=== PATIENT | female | born 1945 | race Caucasian/White ===

== ENCOUNTER 2019-10-10 10:31 | Observation (INO) ==
[2019-10-10] MEDS ORDERED: fentaNYL citrate 100 MCG/2 ML VIAL IV STA (10:57)
[2019-10-10] MEDS ORDERED: SODIUM CHLORIDE 0.9% 500 ML IV ONE (11:00)
--- NOTE | 2019-10-10 11:07 | Emergency Department Note ---
Impression & Plan Chest pain, Neck pain on left side, Headache ED Provider Note Provider: Juan Holt MD DATE OF SERVICE: 10/10/2019 CHIEF COMPLAINT: Chest pain HISTORY OF PRESENT ILLNESS: Patient is a 73-year-old female presenting via ambulance today reporting left-sided chest pain rating to left shoulder starting this morning. Also states he feels somewhat short of breath and does have a history of underlying COPD. Denies any cardiac history states he has a slight nonproductive cough that is been constant. Patient also states that she feels like she might have a lump on the left side of her neck. Patient has a history of brain aneurysm and is thus not allowed to have blood thinners or an MRI. Did review recent encounter here 2 days ago for lower back pain Toradol at that time. Patient states that she was okay overnight until she was awakened by a sharp pain in the left posterior aspect of her shoulder around 6 AM. This pain then moved over to her left lower neck and left anterior chest. Not pleuritic. States she has her chronic COPD cough but feels maybe a little bit more short of breath. Denies any leg swelling or tenderness. Took a full dose aspirin prior to arrival. Reports a cardiac history with myocardial infarction in [place] last year (Daughter later via phone stated this was Takotsubo cardiomyopathy). Patient states she is not quite had pain like this before. No sick contacts. No other trauma. Patient does report a little bit of pain with movement of the shoulder. Patient also states again that she feels that there is maybe a little lower left bump she just noted this morning of her neck. During our discussion she also began to relay some slight headache. Patient states her chest discomfort around a 3 out of 10 is requesting pain medication. Did receive 3 dose of nitroglycerin prior to arrival with minimal improvement. REVIEW OF SYSTEMS: A total of 10 review of systems was obtained and negative except as stated above in the HPI. PAST MEDICAL HISTORY: As noted above MEDICATIONS: Reviewed nursing notes and includes Synthroid, aspirin SOCIAL HISTORY: Patient is a smoker, lives at home PHYSICAL EXAM: GENERAL: alert and oriented in no acute distress on stretcher Head: normocephalic and atraumatic EYES: No injection, discharge or icterus. PERRLA. NECK: Trachea midline. Supple although she does note some slight tenderness at the base of the left lower neck but I do not feel any significant fluctuance there is no erythema in this area. No crepitus. ENT: Mucous membranes pink and moist. LUNGS: Airway patent. No retractions. Breath sounds clear with good air entry bilaterally. HEART: Regular rate and rhythm. No chest wall tenderness ABDOMEN: Soft and non-tender, without guarding or rebound SKIN: Acyanotic, warm, dry, without rashes EXTREMITIES: Without swelling, tenderness or deformity except for some slight pain with ROM of the left shoulder. NEUROLOGICAL: No focal deficits. No aphasia. No facial droop or slurred speech. Normal strength and tone in the extremities. Sensation to gross touch normal. Ambulatory. EKG: Patient appears to be in a sinus rhythm with intermittent PACs. No acute ST segment elevation is notable. There is some baseline artifact. QTc within normal limits. Compared to June 14, 2019 EKG does show some new lateral T wave inversions. CONTINUOUS CARDIAC MONITORING: was ordered and showed a heart rate of 95 bpm in NSR Patient's hypertension was referred to the [facility] COURSE: 1050 Patient was first seen and H&P performed. 1240 Patient reassessed and updated. Patient was having some improvement of her symptoms but they still persist Patient's laboratory studies and imaging reviewed. Differential includes Cardiac ischemia, aortic dissection, pulmonary embolism, pneumothorax, pneumonia, pericarditis, myocarditis, esophageal rupture, GERD, cholecystitis, pancreatitis, musculoskeletal, neurological as well as other pathologies. IMPRESSION/MEDICAL DECISION MAKING: Patient does report a history of cardiac disease. Question some new T wave inversions laterally on the EKG. Pain is somewhat sharp and slightly reproducible on exam. Does have a history of AVM as well and does start to complain of a headache. Given this I did complete a CT of the chest neck and head. Less likely to be aortic dissection. Troponin was sent. Basic labs were obtained. Less likely to be intra-abdominal. No evidence of significant heart failure. No travel risk factors or fever and I doubt this represents acute coronavirus. Patient initially treated with some fentanyl. I doubt this is acutely infectious. There is no evidence of CHEESEMAKING LABORER or meningitis. Laboratory studies show borderline leukocytosis. No acute anemia. Patient has normal renal function. Patient is detectable but not abnormal troponin as well as moderately elevated lipase of 897. Unsure if this could possibly represent the etiology of patient's discomfort. Patient states she is having some lower neck pain and was given an additional oxycodone to help with this pain. CT without signs of PE with a question of left upper lobe muscous plugs. CT the head and neck completed without no findings of significant acute pathology. 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 These do NOT explain the discomfort that she is having. Not having significantly new neurological symptoms and again believe these are more chronic. Patient is already on an antiplatelet agent - ASA. Given that she still having chest and neck discomfort and with her cardiac risk factors believe further observation here in the hospital was warranted and have hospitalist evaluate. DIAGNOSIS: Chest pain, left lower neck pain, headache DISPOSITION: Hospitalist will evaluate Patient was agreeable with this plan. Past Med/Surg History Social History Preferred Language: Moldovan Communication Ability: Effective Visual Impairment: Diminished 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: Hard of Hearing Fixed Capital Clerk Required: No Beliefs That Will Affect Care: None marital status: singled Current Living Situation: Family Current Living Situation Comment: with son and daughter in law current occupational status: disabled Feels Safe at Home: Yes Safety Concerns: Feels Safe At This Time Smoking Status: Current every day smoker Tobacco Type: cigarettes ; Cigarettes Per Day: 2-3 ; Second Hand Exposure: Yes (parents smoked/ smoked) ; Hx Alcohol Use: No Hx Substance Use: No Allergies Allergies Allergy/AdvReac Type Severity Reaction Status Date / Time enoxaparin [From Lovenox] Allergy Severe can not Verified 10/10/19 11:16 take d/t bleeding AVMs heparin Allergy Severe can not Verified 10/10/19 11:16 take d/t bleeding AVMs warfarin [From Coumadin] Allergy Severe can not Verified 10/10/19 11:16 take d/t bleeding AVMs levofloxacin [From Levaquin] Allergy Intermediate "tendons Verified 10/10/19 11:16 in back of leg/foot get hard" Home Meds Home Medications Medication Instructions Recorded Confirmed aspirin 325 mg tablet 325 mg PO QAM 03/22/19 10/10/19 multivitamin 1 tab PO QAM 03/22/19 10/10/19 pilocarpine HCl 2 % eye drops 1 drops OP BID 03/22/19 10/10/19 sertraline 100 mg tablet 100 mg PO QAM 03/22/19 10/10/19 levothyroxine 150 mcg PO QAM 06/14/19 10/10/19 magnesium oxide 400 mg PO QAM 07/30/19 10/10/19 fluticasone furoate 200 1 puffs INH Q24H 09/21/19 10/10/19 mcg-vilanterol 25 mcg/dose inhalation powder tramadol 25 mg PO Q12H PRN 10/10/19 10/10/19 Previous Rx's Medication Instructions Recorded albuterol sulfate 90 mcg/actuation 1 puffs INH QID PRN #18 gm 09/10/19 aerosol inhaler famotidine 20 mg tablet 20 mg PO DAILY #30 tab 09/22/19 etodolac 200 mg PO Q12H PRN #14 cap 10/08/19 Results & Data (ED) Vital Signs Vital Signs - 24 hr 10/10/19 10:36 10/10/19 10:40 10/10/19 10:41 Temperature 36.8 C Temperature Source Oral Pulse Rate 95 H 99 H 103 H Pulse Rate [Left Finger] Pulse Rate from SpO2 Sensor 112 H 94 H Respiratory Rate 18 22 24 Blood Pressure 113/71 113/71 Blood Pressure [Right Arm] Blood Pressure Mean 76 85 Blood Pressure Mean [Right Arm] Pulse Oximetry 90 97 99 Oxygen Delivery Method Room Air Room Air Room Air Sepsis Recent Fever Within 48 Hours No Sepsis New/Unexplained Change in Mental Status No Sepsis Action Taken by Nursing No Action Required 10/10/19 10:44 10/10/19 11:00 10/10/19 11:13 Temperature Temperature Source Pulse Rate 89 84 Pulse Rate [Left Finger] Pulse Rate from SpO2 Sensor 86 Respiratory Rate 21 21 Blood Pressure 147/64 H Blood Pressure [Right Arm] Blood Pressure Mean 93 Blood Pressure Mean [Right Arm] Pulse Oximetry 99 98 Oxygen Delivery Method Room Air Room Air Sepsis Recent Fever Within 48 Hours Sepsis New/Unexplained Change in Mental Status Sepsis Action Taken by Nursing 10/10/19 12:01 10/10/19 12:32 10/10/19 13:46 Temperature Temperature Source Pulse Rate Pulse Rate [Left Finger] 90 95 H 101 H Pulse Rate from SpO2 Sensor Respiratory Rate 22 22 18 Blood Pressure Blood Pressure [Right Arm] 159/90 H 180/52 H 134/64 Blood Pressure Mean Blood Pressure Mean [Right Arm] 113 94 87 Pulse Oximetry 99 98 94 Oxygen Delivery Method Room Air Room Air Room Air Sepsis Recent Fever Within 48 Hours Sepsis New/Unexplained Change in Mental Status Sepsis Action Taken by Nursing Laboratory Data Result diagrams: 10/10/19 Unknown 10/10/19 Unknown Lab Results 10/10/19 10/10/19 10/10/19 Range/Units Unknown Unknown Unknown WBC 11.05 H (4.8-10.8) K/uL RBC 3.96 L (4.2-5.4) M/uL Hgb 12.0 (12.0-16.0) g/dL Hct 34.1 L (37-47) % MCV 86.1 (80-100) fL MCH 30.3 (25-34) pg MCHC 35.2 (32-36) g/dL RDW Std Deviation 46.1 (36.4-46.3) fL RDW Coeff of Kilo 14.6 H (11.5-14.5) % Plt Count 201 (130-400) K/uL MPV 9.2 (7.4-10.4) fL Immature Gran % (Auto) 0.5 % Neut % (Auto) 77.3 % Lymph % (Auto) 9.9 % [place] % (Auto) 9.6 % Eos % (Auto) 2.2 % Baso % (Auto) 0.5 % Immature Gran # (Auto) 0.06 H (0.00-0.02) K/uL Neut # (Auto) 8.54 H (1.4-6.5) K/uL Lymph # (Auto) 1.09 L (1.2-3.4) K/uL [place] # (Auto) 1.06 H (0.11-0.59) K/uL Eos # (Auto) 0.24 (0-0.5) K/uL Baso # (Auto) 0.06 (0-0.2) K/uL PT 11.6 (9.0-12.0) Seconds INR 1.1 (0.9-1.1) APTT 27.8 (21.0-31.0) Seconds PTT Ratio 1.0 Sodium 133 L (136-145) mmol/L Potassium 4.1 (3.5-5.1) mmol/L Chloride 102 (98-107) mmol/L Carbon Dioxide 24 (21-32) mmol/L Anion Gap 7.0 (3-11) BUN 9 (7-18) mg/dl Creatinine 0.55 L (0.6-1.2) mg/dl Est Cr Clr Drug Dosing 70.7 ml/min Est GFR ( Amer) 106.3 Est GFR (Non-Af Amer) 91.8 BUN/Creatinine Ratio 16.5 (10-20) Glucose 113 H (70-99) mg/dl Calcium 9.4 (8.5-10.1) mg/dl Total Bilirubin 0.5 (0.2-1) mg/dl AST 34 (15-37) U/L ALT 29 (12-78) U/L Alkaline Phosphatase 123 H (45-117) U/L Troponin I 0.015 (0-0.045) ng/ml Total Protein 7.2 (6.4-8.2) gm/dl Albumin 3.7 (3.4-5.0) gm/dl Globulin 3.5 (2.5-4.0) gm/dl Albumin/Globulin Ratio 1.1 (0.9-2) Lipase 897 H (73-393) U/L Administered Medications Fluticasone/Vilanterol (Breo Ellipta 200/25 Mcg Inh) 1 puffs INH DAILY SACHIN Stop: 11/09/19 15:08 Last Admin: 10/10/19 16:04 Dose: 1 puffs Documented by: [id number] Ioversol (Optiray 320 125ml) 118 ml IV ONCE PRN PRN Reason: Interaction Checking Stop: 10/14/19 11:40 Last Admin: 10/10/19 11:42 Dose: 118 ml Documented by: [id number] Tramadol HCl (Ultram) 25 mg PO Q12H PRN PRN Reason: Pain Stop: 11/09/19 15:08 Last Admin: 10/10/19 15:35 Dose: 25 mg Documented by: [id number] Discontinued Medications Fentanyl Citrate (Fentanyl Citrate) 25 mcg IV NOW STA Stop: 10/10/19 10:58 Last Admin: 10/10/19 11:15 Dose: 25 mcg Documented by: [id number] Sodium Chloride (Nss) 500 mls @ 999 mls/hr IV .Q31M ONE Stop: 10/10/19 11:30 Last Infusion: 10/10/19 12:06 Dose: 0 mls/hr Documented by: [id number] Admin: 10/10/19 11:15 Dose: 999 mls/hr Documented by: [id number] Oxycodone HCl (Roxicodone Immediate Rel) 5 mg PO NOW STA Stop: 10/10/19 12:05 Last Admin: 10/10/19 12:08 Dose: 5 mg Documented by: [id number] Discharge Plan Visit Data *Final* Discharge Date/Time: 10/10/19 14:48 Chief Complaint: Chest Pain Stated Complaint: chest pain ED Provider: Juan Holt Discharge Problem: Chest pain, Neck pain on left side, Headache Patient Disposition: Admitted As Inpatient Discharge Instructions Interventions: ED Discharge Assessment Last Done: 10/10/19 14:48 Discharge Problem: Chest pain Qualifiers: Chest pain type: unspecified Qualified Code(s): R07.9 - Chest pain, unspecified Headache Qualifiers: Headache type: unspecified Headache chronicity pattern: acute headache Intractability: not intractable Qualified Code(s): R51 - Headache
[2019-10-10 11:15] LABS: Basophils # (auto) 0.06 K/uL (0-0.2); Basophils % (auto) 0.5 %; Eosinophils # (auto) 0.24 K/uL (0-0.5); Eosinophils % (auto) 2.2 %; Hematocrit (blood only) 34.1 % (37-47); Immature Granulocytes # (auto) 0.06 K/uL (0.00-0.02); Immature Granulocytes % (auto) 0.5 %; Lymphocytes # (auto) 1.09 K/uL (1.2-3.4); Lymphocytes % (auto) 9.9 %; Mean Corpuscular Hemoglobin 30.3 pg (25-34); Mean Corpuscular Hgb Conc 35.2 g/dL (32-36); Mean Corpuscular Volume 86.1 fL (80-100); Mean Platelet Volume 9.2 fL (7.4-10.4); Monocytes # (auto) 1.06 K/uL (0.11-0.59); Monocytes % (auto) 9.6 %; Neutrophils # (auto) 8.54 K/uL (1.4-6.5); Neutrophils % (auto) 77.3 %; Platelet Count 201 K/uL (130-400); RDW Coefficient of Variation 14.6 % (11.5-14.5); RDW Standard Deviation 46.1 fL (36.4-46.3); Red Blood Count 3.96 M/uL (4.2-5.4); White Blood Count 11.05 K/uL (4.8-10.8)
--- NOTE | 2019-10-10 11:25 | XRay Report ---
XR chest 1V portable CLINICAL HISTORY: Atypical chest pain COMPARISON STUDY: 03/22/2019 FINDINGS: The heart is the upper limits of normal in size. There are calcified mediastinal and hilar lymph nodes. The patient is hyperinflated. There is no acute parenchymal consolidation. There is michelle r left basilar atelectasis/scarring. There is no lobar consolidation. There is no failure. There are no pleural effusions.[ IMPRESSION: No active disease in the chest. ACT 112: Negative or not required by law. Electronically signed by: Alexey Florentino M.D. 10/10/2019 11:24 AM
[2019-10-10 11:28] LABS: INR 1.1 (0.9-1.1); Partial Thromboplastin Time 27.8 Seconds (21.0-31.0); Prothrombin Time 11.6 Seconds (9.0-12.0)
[2019-10-10 11:31] LABS: Albumin Level 3.7 gm/dl (3.4-5.0); BUN Creatinine Ratio 16.5 (10-20); Calcium 9.4 mg/dl (8.5-10.1); Creatinine Clr Calc Pharmacy 70.7 ml/min; Est GFR (African American) 106.3; Est GFR (Non-African American) 91.8; Potassium 4.1 mmol/L (3.5-5.1)
[2019-10-10 11:36] LABS: Albumin Globulin Ratio 1.1 (0.9-2); Bilirubin,Total 0.5 mg/dl (0.2-1); Globulin 3.5 gm/dl (2.5-4.0); Total Protein 7.2 gm/dl (6.4-8.2); Troponin I 0.015 ng/ml (0-0.045)
[2019-10-10] MEDS ORDERED: OPTIRAY 320 125ml IV PRN (11:41)
[2019-10-10] MEDS ORDERED: OXYCODONE HCL IR 5 MG TAB (IMMEDIATE RELEASE) PO STA (12:04)
--- NOTE | 2019-10-10 12:12 | CT Scan Report ---
CT ANGIOGRAM OF THE CHEST CLINICAL HISTORY: Atypical chest pain, shortness of breath. Suspected pulmonary embolism. COMPARISON STUDY: Chest x-ray dated 10/10/2019 TECHNIQUE: Following the IV administration of 118 mL of Optiray-320, CT angiogram of the thorax was p erformed from the thoracic inlet to the lung bases utilizing the pulmonary embolus protocol. Images a re reviewed in the axial, sagittal, and coronal planes. IV contrast was administered without complica tion. MIP imaging was performed. A dose lowering technique was utilized adhering to the principles o f ALARA. CT DOSE: 1017.77 mGy.cm FINDINGS: There are mildly enlarged mediastinal and hilar lymph nodes. There is no evidence of pathologic axill cheryl lymphadenopathy. There is no evidence of thoracic aortic aneurysm or dissection. There are mild to moderate atheromato us changes within the descending thoracic aorta, and advanced atheromatous changes within the abdomin al aorta. There were no pulmonary artery filling defects to indicate acute pulmonary embolism. There is suspect ed pulmonary arterial hypertension. No pleural effusions are visualized. Patient is hyperinflated. There is mild emphysema. There is apical scarring. There is a left upper lo be bronchial filling defect, likely representing a mucous plug. There is a 4 mm left upper lobe pulmo nary nodule. There are lower thoracic vertebral body inferior endplate compression deformities. IMPRESSION: 1. No evidence of acute pulmonary embolism 2. Mild emphysema 3. Mild mediastinal and hilar lymphadenopathy 4. Left upper lobe bronchial filling defect, statistically representing a mucous plug ACT 112: Negative or not required by law. Electronically signed by: Alexey Florentino M.D. 10/10/2019 12:11 PM
--- NOTE | 2019-10-10 12:26 | CT Scan Report ---
CT angio neck with con CLINICAL HISTORY: Neck, left neck pain. Possible dissection. COMPARISON STUDY: No previous studies for comparison. TECHNIQUE: CT angiography was performed from the aortic arch to the skull base. MIP imaging was perfo rmed. The patient was scanned in a dynamic helical fashion during intravenous administration of 118 c c of Optiray 320. A dose lowering technique was utilized adhering to the principles of ALARA. CT DOSE: Technique: CT angiogram of the carotid and vertebral arteries was obtained using intravenous contrast and 3-D reconstruction. NASCET criteria was utilized. Findings: There is upper lobe pulmonary emphysema with apical scarring. There are atheromatous changes present within the common carotid artery without evidence for hemodyna mically significant stenosis. There is apparent occlusion of the right external carotid artery. There are postsurgical changes present within the right neck. There is enlargement and heterogeneity of th e right masseter muscle with multiple small serpiginous vessels possibly representing a vascular malf ormation. There is no evidence of hemodynamically significant right internal carotid artery stenosis. Atheromatous changes are present within the left common carotid without evidence of hemodynamically s ignificant stenosis. There is extensive atheromatous plaquing at the level the left carotid bulb. The re is a high-grade stenosis of the left external artery origin. There is a less than 50% stenosis the left internal carotid artery origin. The left vertebral artery is dominant. There is no evidence of left vertebral artery stenosis. There is an occlusion of the proximal right vertebral artery. There is occlusion of the distal right verteb ral artery. IMPRESSION: 1. No evidence of hemodynamically significant right internal carotid artery stenosis. 2. 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 High-grade stenosis of the left external carotid artery 4. Extensive atheromatous plaque at the level left carotid bulb with a less than 60% stenosis of the left internal carotid artery origin 5. Occlusion of the proximal right vertebral artery distal reconstitution. Occlusion of distal right vertebral artery. 6. No evidence of left vertebral artery stenosis 7. Postsurgical changes present within the right neck. 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 ACT 112: Negative or not required by law. Electronically signed by: Alexey Florentino M.D. 10/10/2019 12:25 PM
--- NOTE | 2019-10-10 12:32 | CT Scan Report ---
CT angio head wo/w CT DOSE: CLINICAL HISTORY: Headache. History of vascular malformation. TECHNIQUE: Unenhanced images were obtained of the brain. CT angiography was then performed a dynamic helical fashion during intravenous administration of 118 cc Optiray 320. MIP imaging was acquired. A dose lowering technique was utilized adhering to the principles of ALARA. COMPARISON STUDY: None. FINDINGS: Noncontrast images reveal no intra or extra-axial mass lesions. There is no CT evidence of acute cortical infarction. There are moderate hypodensities within the white matter, likely on a smal l vessel basis. There are old basal ganglia lacunar infarcts. There is no evidence of acute hemorrhag e. There is no evidence of midline shift. There are postsurgical changes of a right frontotemporal cr aniotomy. There is an aneurysm clip in the region of the right ramona of Gloria. Postcontrast images reveal no pathologically enhancing intracranial masses. The dural venous sinuses appear patent. There is enlargement of the right masseter muscle with serpiginous vessels suggesting a vascular malf ormation. There is a distal right vertebral artery occlusion. There are no lesion suspicious for aneurysm. There are mild to moderate atheromatous changes within t he cavernous carotids. IMPRESSION: 1. No evidence of acute hemorrhage. No evidence CT evidence of acute or subacute infarction 2. Postsurgical changes of a right frontotemporal craniotomy with aneurysm clipping 3. No aneurysm is identified 4. 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 Distal right vertebral artery occlusion ACT 112: Negative or not required by law. Electronically signed by: Alexey Florentino M.D. 10/10/2019 12:30 PM
--- NOTE | 2019-10-10 13:51 | History & Physical Report ---
Date of Service October 10, 2019 Assessment & Plan (1) Atypical chest pain: Pain is very atypical, consider superior trapezius spasm rather than a cardiac issue at this time. Patient does have risk factors. Will place in observation, follow cardiac enzymes along with symptomatology. Can use K pad along with ibuprofen as needed for pain. Repeat EKG in the morning. If negative, can plan on discharge with close outpatient follow-up. (2) COPD (chronic obstructive pulmonary disease): Stable at this time and patient is breathing well on room air. Continue albuterol and chronic inhalers at this time. (3) Body aches: Per history, patient has had issues with myalgias in the past. NSAIDs as noted above. History of Present Illness Primary Care Provider: Niyah Landaverde MD This is a 73-year-old female with past medical history of cerebral AVMs, previous possible [place], COPD that presents today complaining of back and shoulder pain. Patient is a decent historian but somewhat limited with details. Patient tells me she woke up around 6:00 this morning with pain in her left neck. This started in the mid cervical region but seemed to spread down into her shoulder and upper back. It then came around to the left side of her chest parallel to the sternum. She described it being very sharp and worse with movement. It is not pleuritic. There was no diaphoresis or palpitations with this. It did hurt worse when she moves her neck. The pain lasted for approximately an hour and was relieved after she was given nitro. At time of evaluation, the pain is almost resolved but still present. She denies any other symptoms such as nausea or vomiting. She did endorse some shortness of breath but this is mild and chronic in nature and no worse today. She has been afebrile. Of note, she tells me she had a myocardial infarction in [place] last year. The pain she experiences not similar to what she is experiencing now. I did review the ER physician's documentation, he had communicate with the daughter and found that she had Takotsubo cardiomyopathy. Allergies Allergy/AdvReac Type Severity Reaction Status Date / Time enoxaparin [From Lovenox] Allergy Severe can not Verified 10/10/19 11:16 take d/t bleeding AVMs heparin Allergy Severe can not Verified 10/10/19 11:16 take d/t bleeding AVMs warfarin [From Coumadin] Allergy Severe can not Verified 10/10/19 11:16 take d/t bleeding AVMs levofloxacin [From Levaquin] Allergy Intermediate "tendons Verified 10/10/19 11:16 in back of leg/foot get hard" Home Medications Home Medications Medication Instructions Recorded Confirmed Type aspirin 325 mg tablet 325 mg PO QAM 03/22/19 10/10/19 History multivitamin 1 tab PO QAM 03/22/19 10/10/19 History pilocarpine HCl 2 % eye drops 1 drops OP BID 03/22/19 10/10/19 History sertraline 100 mg tablet 100 mg PO QAM 03/22/19 10/10/19 History levothyroxine 150 mcg PO QAM 06/14/19 10/10/19 History magnesium oxide 400 mg PO QAM 07/30/19 10/10/19 History albuterol sulfate 90 mcg/actuation 1 puffs INH QID PRN #18 gm 09/10/19 10/10/19 Rx aerosol inhaler fluticasone furoate 200 1 puffs INH Q24H 09/21/19 10/10/19 History mcg-vilanterol 25 mcg/dose inhalation powder famotidine 20 mg tablet 20 mg PO DAILY #30 tab 09/22/19 10/10/19 Rx etodolac 200 mg PO Q12H PRN #14 cap 10/08/19 10/10/19 Rx tramadol 25 mg PO Q12H PRN 10/10/19 10/10/19 History Past Med/Surg History Social History Preferred Language: [place] Citizen Communication Ability: Effective Visual Impairment: Diminished 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: Hard of Hearing 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 Professional Required: No Beliefs That Will Affect Care: None marital status: singled Current Living Situation: Family Current Living Situation Comment: Lives with son and daughter in law current occupational status: disabled Feels Safe at Home: Yes Smoking Status: Current every day smoker Tobacco Type: cigarettes ; Cigarettes Per Day: 4-5 a day ; Second Hand Exposure: Yes (parents smoked/ smoked) ; Hx Alcohol Use: No Hx Substance Use: No Review of Systems Constitutional: no fever, no chills, no weakness, no weight loss and no weight gain Eyes: as per Subjective / HPI Respiratory: no cough, no chest congestion, no dyspnea and no dyspnea on exertion Cardiovascular: + chest pain; no radiating jaw, neck or arm pain, no dyspnea, no dyspnea on exertion, no orthopnea, no palpitations, no lightheadedness and no edema Gastrointestinal: no abdominal pain, no nausea, no vomiting, no constipation and no diarrhea/loose stools Genitourinary: no dysuria, no difficulty urinating, no urinary frequency, no urinary hesitancy, no urinary urgency and no flank pain Musculoskeletal: + joint pain; no back pain, no neck pain, no deformity, no swelling, no stiffness, no myalgia and no muscle weakness Integumentary: no rash Neurologic: no gait abnormality, no unsteadiness, no falls and no generalized weakness Physical Exam Constitutional: cooperative; no acute distress Neck: trachea midline, no thyromegaly Respiratory: normal respiratory effort Auscultation: lungs clear to auscultation bilaterally; no crackles, no rales, no rhonchi and no wheezes Cardiovascular: Rate/Rhythm: regular rate and regular rhythm Heart Sounds: normal S1 and normal S2 Gastrointestinal (Abdomen): Inspection/Auscultation: abdomen normal to inspection Percussion/Palpation: abdomen soft; abdomen nontender, no guarding, abdomen not rigid and no hepatosplenomegaly Musculoskeletal: Point tenderness mid cervical region on the left, some pain with mild palpation of left superior trap. No point tenderness of chest wall Skin: no rashes, warm and dry Results & Data Results & Data ([facility]) Vital Signs (Past 12 Hours) Vital Signs Temp Pulse Pulse Resp BP BP Pulse Ox 10/10/19 12:32 95 H 22 180/52 H 98 10/10/19 12:01 90 22 159/90 H 99 10/10/19 11:13 84 21 147/64 H 98 10/10/19 11:00 89 21 10/10/19 10:44 99 10/10/19 10:41 36.8 C 103 H 24 113/71 99 10/10/19 10:40 99 H 22 97 10/10/19 10:36 95 H 18 113/71 90 Laboratory Results WBC 11.05, hemoglobin of 12, hematocrit 34.1, platelets of 201. INR is 1.1. Sodium 133, potassium 4.1, chloride 12 2, current dioxide of 24, BUN of 9 creatinine of 0.55. Alk phos 123, troponin is 0.015. Lipase is 897. Diagnostic Findings CT angio head wo/w CT DOSE: CLINICAL HISTORY: Headache. History of vascular malformation. TECHNIQUE: Unenhanced images were obtained of the brain. CT angiography was then performed a dynamic helical fashion during intravenous administration of 118 cc Optiray 320. MIP imaging was acquired. A dose lowering technique was utilized adhering to the principles of ALARA. COMPARISON STUDY: None. FINDINGS: Noncontrast images reveal no intra or extra-axial mass lesions. There is no CT evidence of acute cortical infarction. There are moderate hypodensities within the white matter, likely on a small vessel basis. There are old basal ganglia lacunar infarcts. There is no evidence of acute hemorrhage. There is no evidence of midline shift. There are postsurgical changes of a right frontotemporal craniotomy. There is an aneurysm clip in the region of the right [place] of [place]. Postcontrast images reveal no pathologically enhancing intracranial masses. The dural venous sinuses appear patent. There is enlargement of the right masseter muscle with serpiginous vessels suggesting a vascular malformation. There is a distal right vertebral artery occlusion. There are no lesion suspicious for aneurysm. There are mild to moderate atheromatous changes within the cavernous carotids. IMPRESSION: 1. No evidence of acute hemorrhage. No evidence CT evidence of acute or subacute infarction 2. Postsurgical changes of a right frontotemporal craniotomy with aneurysm clipping 3. No aneurysm is identified 4. 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 Distal right vertebral artery occlusion --- CT angio neck with con CLINICAL HISTORY: Neck, left neck pain. Possible dissection. COMPARISON STUDY: No previous studies for comparison. TECHNIQUE: CT angiography was performed from the aortic arch to the skull base. MIP imaging was performed. The patient was scanned in a dynamic helical fashion during intravenous administration of 118 cc of Optiray 320. A dose lowering technique was utilized adhering to the principles of ALARA. CT DOSE: Technique: CT angiogram of the carotid and vertebral arteries was obtained using intravenous contrast and 3-D reconstruction. NASCET criteria was utilized. Findings: There is upper lobe pulmonary emphysema with apical scarring. There are atheromatous changes present within the common carotid artery without evidence for hemodynamically significant stenosis. There is apparent occlusion of the right external carotid artery. There are postsurgical changes present within the right neck. There is enlargement and heterogeneity of the right masseter muscle with multiple small serpiginous vessels possibly representing a vascular malformation. There is no evidence of hemodynamically significant right internal carotid artery stenosis. Atheromatous changes are present within the left common carotid without evidence of hemodynamically significant stenosis. There is extensive atheromatous plaquing at the level the left carotid bulb. There is a high-grade stenosis of the left external artery origin. There is a less than 50% stenosis the left internal carotid artery origin. The left vertebral artery is dominant. There is no evidence of left vertebral artery stenosis. There is an occlusion of the proximal right vertebral artery. There is occlusion of the distal right vertebral artery. IMPRESSION: 1. No evidence of hemodynamically significant right internal carotid artery stenosis. 2. 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 High-grade stenosis of the left external carotid artery 4. Extensive atheromatous plaque at the level left carotid bulb with a less than 60% stenosis of the left internal carotid artery origin 5. Occlusion of the proximal right vertebral artery distal reconstitution. Occlusion of distal right vertebral artery. 6. No evidence of left vertebral artery stenosis 7. Postsurgical changes present within the right neck. 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 --- CT ANGIOGRAM OF THE CHEST CLINICAL HISTORY: Atypical chest pain, shortness of breath. Suspected pulmonary embolism. COMPARISON STUDY: Chest x-ray dated 10/10/2019 TECHNIQUE: Following the IV administration of 118 mL of Optiray-320, CT angiogram of the thorax was performed from the thoracic inlet to the lung bases utilizing the pulmonary embolus protocol. Images are reviewed in the axial, sagittal, and coronal planes. IV contrast was administered without complication. MIP imaging was performed. A dose lowering technique was utilized adhering to the principles of ALARA. CT DOSE: 1017.77 mGy.cm FINDINGS: There are mildly enlarged mediastinal and hilar lymph nodes. There is no e vidence of pathologic axillary lymphadenopathy. There is no evidence of thoracic aortic aneurysm or dissection. There are mild to moderate atheromatous changes within the descending thoracic aorta, and advanced atheromatous changes within the abdominal aorta. There were no pulmonary artery filling defects to indicate acute pulmonary embolism. There is suspected pulmonary arterial hypertension. No pleural effusions are visualized. Patient is hyperinflated. There is mild emphysema. There is apical scarring. There is a left upper lobe bronchial filling defect, likely representing a mucous plug. There is a 4 mm left upper lobe pulmonary nodule. There are lower thoracic vertebral body inferior endplate compression deformities. IMPRESSION: 1. No evidence of acute pulmonary embolism 2. Mild emphysema 3. Mild mediastinal and hilar lymphadenopathy 4. Left upper lobe bronchial filling defect, statistically representing a mucous plug PG Care Time/CCT Total # of Minutes Spent Total Time Spent with Patient: Total time spent is greater than 50% in coordination of care (as documented) at patient's floor/unit and/or counseling patient: Coding Level of Care Code 42459 OBS Care - Level 3 Diagnoses Atypical chest pain R07.89 COPD (chronic obstructive pulmonary disease) J44.9 Body aches R52
[2019-10-10] MEDS ORDERED: IBUPROFEN 600 MG TAB PO PRN (15:09)
[2019-10-10] MEDS ORDERED: ETODOLAC 200 MG PO PRN (15:09)
[2019-10-10] MEDS ORDERED: ALUMINUM/MAGNESIUM SUSP 30 ML UDC PO PRN (15:09)
[2019-10-10] MEDS ORDERED: TRAMADOL HCL 50 MG TABLET PO PRN (15:09)
[2019-10-10] MEDS ORDERED: ALBUTEROL HFA 8 GM INHALER INH PRN (15:09)
[2019-10-10] MEDS: FLUTICASONE/VILANTEROL 200/25MCG 14 PUFFS/INHALER INH SCH (16:04)
[2019-10-10] MEDS: PILOCARPINE HCL 2% OP SOLN 15 ML BTL OP SCH (20:31)
[2019-10-10] MEDS: ACETAMINOPHEN 325 MG TAB PO PRN (22:01)
[2019-10-11 06:20] LABS: BUN Creatinine Ratio 13.7 (10-20); Calcium 9.6 mg/dl (8.5-10.1); Creatinine Clr Calc Pharmacy 60.2 ml/min; Est GFR (African American) 100.7; Est GFR (Non-African American) 86.8; Potassium 3.8 mmol/L (3.5-5.1)
[2019-10-11 06:30] LABS: Hematocrit (blood only) 34.7 % (37-47); Hemoglobin 12.1 g/dL (12.0-16.0); Mean Corpuscular Hemoglobin 29.9 pg (25-34); Mean Corpuscular Hgb Conc 34.9 g/dL (32-36); Mean Corpuscular Volume 85.7 fL (80-100); Mean Platelet Volume 9.3 fL (7.4-10.4); Platelet Count 198 K/uL (130-400); RDW Coefficient of Variation 14.8 % (11.5-14.5); Red Blood Count 4.05 M/uL (4.2-5.4)
[2019-10-11] MEDS ORDERED: LEVOTHYROXINE SODIUM 150 MCG TABLET PO SCH (06:30)
[2019-10-11] MEDS: FLUTICASONE/VILANTEROL 200/25MCG 14 PUFFS/INHALER INH SCH (08:24)
[2019-10-11] MEDS: PILOCARPINE HCL 2% OP SOLN 15 ML BTL OP SCH (08:24)
[2019-10-11] MEDS ORDERED: SERTRALINE HCL 100 MG TABLET PO SCH (09:00)
[2019-10-11] MEDS ORDERED: MULTIVITAMIN TAB PO SCH (09:00)
[2019-10-11] MEDS ORDERED: ASPIRIN 325 MG ECTAB PO SCH (09:00)
[2019-10-11] MEDS ORDERED: FAMOTIDINE 20 MG TAB PO SCH (09:00)
[2019-10-11] MEDS ORDERED: MAGNESIUM OXIDE 400 MG TAB PO SCH (09:00)
[2019-10-11] MEDS: ACETAMINOPHEN 325 MG TAB PO PRN (10:36)
--- NOTE | 2019-10-11 11:22 | Discharge Summary ---
Date of Service October 11, 2019 Admission HPI Per Admitting Provider This is a 73-year-old female with past medical history of cerebral AVMs, previous possible [place], COPD that presents today complaining of back and shoulder pain. Patient is a decent historian but somewhat limited with details. Patient tells me she woke up around 6:00 this morning with pain in her left neck. This started in the mid cervical region but seemed to spread down into her shoulder and upper back. It then came around to the left side of her chest parallel to the sternum. She described it being very sharp and worse with movement. It is not pleuritic. There was no diaphoresis or palpitations with this. It did hurt worse when she moves her neck. The pain lasted for approximately an hour and was relieved after she was given nitro. At time of evaluation, the pain is almost resolved but still present. She denies any other symptoms such as nausea or vomiting. She did endorse some shortness of breath but this is mild and chronic in nature and no worse today. She has been afebrile. Of note, she tells me she had a myocardial infarction in [place] last year. The pain she experiences not similar to what she is experiencing now. I did review the ER physician's documentation, he had communicate with the daughter and found that she had Takotsubo cardiomyopathy. Admission Exam Per Admitting Provider Constitutional: cooperative; no acute distress Neck: trachea midline, no thyromegaly Respiratory: normal respiratory effort Auscultation: lungs clear to auscultation bilaterally; no crackles, no rales, no rhonchi and no wheezes Cardiovascular: Rate/Rhythm: regular rate and regular rhythm Heart Sounds: normal S1 and normal S2 Gastrointestinal (Abdomen): Inspection/Auscultation: abdomen normal to inspection Percussion/Palpation: abdomen soft; abdomen nontender, no guarding, abdomen not rigid and no hepatosplenomegaly Musculoskeletal: Point tenderness mid cervical region on the left, some pain with mild palpation of left superior trap. No point tenderness of chest wall Skin: no rashes, warm and dry Principal Diagnosis 1. Atypical chest pain, suspect musculoskeletal back and shoulder pain 2. History of coronary artery disease with previous [place] will approximate 1 year ago 3. History of Takotsubo cardiomyopathy 4. COPD by history Discharge Exam Constitutional cooperative; no acute distress Neck trachea midline, no thyromegaly Respiratory normal respiratory effort Auscultation: lungs clear to auscultation bilaterally; no crackles, no rales, no rhonchi and no wheezes Cardiovascular Rate/Rhythm: regular rate and regular rhythm Heart Sounds: normal S1 and normal S2 Gastrointestinal (Abdomen) Inspection/Auscultation: abdomen normal to inspection Percussion/Palpation: abdomen soft; abdomen nontender, no guarding, abdomen not rigid and no hepatosplenomegaly Skin no rashes, warm and dry Discharge Data Allergies Allergy/AdvReac Type Severity Reaction Status Date / Time enoxaparin [From Lovenox] Allergy Severe can not Verified 10/10/19 11:16 take d/t bleeding AVMs heparin Allergy Severe can not Verified 10/10/19 11:16 take d/t bleeding AVMs warfarin [From Coumadin] Allergy Severe can not Verified 10/10/19 11:16 take d/t bleeding AVMs levofloxacin [From Levaquin] Allergy Intermediate "tendons Verified 10/10/19 11:16 in back of leg/foot get hard" Consultations 10/10/19 13:18 ED Decision to Admit Stat Ordered Studies 10/10/19 10:57 CT angio head wo/w Stat CT angio neck with con Stat 10/10/19 11:35 CT angio chest PE protocol Stat Hospital Course (1) Atypical chest pain: Pain is very atypical, will consider shoulder and trapezius muscle spasm. Patient was placed in monitored observation overnight, had no abnormalities. Patient had 3 sets of troponins, the first was undetectable, the second was 0.026 and that there was 0.015, all which are normal values. She had no EKG changes overnight. The time my evaluation the morning, the patient tells me that her pain mostly resolved. She had no new complaints. She denied any overt chest pain, shortness of breath, palpitations, diaphoresis, fever or chills. Therefore the patient will be discharged home in stable condition. She should follow-up with her primary care physician as previously instructed. The patient does have recurrent chest or back pain that is concerning she should present to get to the emergency room for further evaluation. (2) COPD (chronic obstructive pulmonary disease): Stable at this time and patient is breathing well on room air. Continue albuterol and chronic inhalers at this time. (3) Body aches: Per history, patient has had issues with myalgias in the past. NSAIDs as noted above. Total Time Total Time Spent Total Time Spent (In Minutes): Excess of 30 minutes was taken in preparation of discharge Discharge Plan Discharge Items Patient Disposition: Home - Self-Care Reason For Visit: CHEST/BACK PAIN Discharge Diagnosis: 1. Back and shoulder pain, likely noncardiac 2. Possible history of CAD and Takotsubo cardiomyopathy 3. COPD by history Activity: Resume your previous activity Lifting: Gradually increase as tolerated Non-emergency contact: Primary Care Provider Call non-emergency contact if: your symptoms worsen Follow-up/Referrals: Niyah Landaverde MD [Primary Care Provider] - Diet: Heart Healthy Addtl Attending Provider Instructions: Can use heat as needed for shoulder pain Stand-Alone Forms: [employer], Smoking Cessation Medications and DC Order Prescriptions: Continued albuterol sulfate 90 mcg/actuation HFA aerosol inhaler 1 puffs INH QID PRN (Reason: shortness of breath or wheezing) Qty: 18 RF: 3 aspirin 325 mg tablet 325 mg PO QAM RF: 0 multivitamin tablet 1 tab PO QAM RF: 0 pilocarpine HCl 2 % drops 1 drops OP BID RF: 0 sertraline 100 mg tablet 100 mg PO QAM RF: 0 Breo Ellipta 200-25 mcg/dose blister with device 1 puffs INH Q24H RF: 0 famotidine 20 mg tablet 20 mg PO DAILY Qty: 30 RF: 2 levothyroxine 150 mcg tablet 150 mcg PO QAM RF: 0 magnesium oxide 400 mg magnesium Tablet 400 mg PO QAM RF: 0 etodolac 200 mg capsule 200 mg PO Q12H PRN (Reason: pain) Qty: 14 RF: 0 tramadol 50 mg tablet 25 mg PO Q12H PRN (Reason: Pain) RF: 0 Discharge Orders: Discharge Order (Routine); Ordered 10/11/19 Ordered By: Sanjeev George Admission Data Admit Date/Time: 10/10/19 14:10 Attending Provider: Sanjeev George Admit Provider: Sanjeev George Primary Care Provider: Niyah Landaverde Other Providers: Sanjeev George Coding Level of Care Code 95576 OBS Care - Discharge Diagnoses Atypical chest pain R07.89 COPD (chronic obstructive pulmonary disease) J44.9 Body aches R52
--- NOTE | 2019-10-11 13:13 | Electrocardiogram Report ---
Test Reason : Blood Pressure : / mmHG Vent. Rate : 098 BPM Atrial Rate : 098 BPM P-R Int : 112 ms QRS Dur : 062 ms QT Int : 324 ms P-R-T Axes : 070 -14 085 degrees QTc Int : 413 ms Poor data quality, interpretation may be adversely affected Sinus rhythm with Premature atrial complexes with Aberrant conduction Abnormal ECG When compared with ECG of 14-JUN-2019 13:29, ST now depressed in Anterior leads T wave inversion now evident in Anterior leads Confirmed by Chucky Solares ([id number]) on 10/11/2019 1:13:04 PM Referred By: REFERRED SELF Confirmed By:Chucky Solares
--- NOTE | 2019-10-11 13:35 | Electrocardiogram Report ---
Test Reason : Blood Pressure : / mmHG Vent. Rate : 087 BPM Atrial Rate : 087 BPM P-R Int : 124 ms QRS Dur : 068 ms QT Int : 346 ms P-R-T Axes : 075 -11 044 degrees QTc Int : 416 ms Sinus rhythm with occasional Premature ventricular complexes and Premature atrial complexes Possible Anterior infarct T wave abnormality, consider anterior ischemia Abnormal ECG When compared with ECG of 10-OCT-2019 10:35, Premature ventricular complexes are now Present Confirmed by Chucky Solares ([id number]) on 10/11/2019 1:34:51 PM Referred By: REFERRED SELF Confirmed By:Chucky Solares
== END 2019-10-11 12:17 | disposition home or self-care (01) ==
LOC: ED 10:31 → 2N 10:31

== ENCOUNTER 2019-10-20 18:23 | Inpatient (IN) ==
[2019-10-20] MEDS ORDERED: MoRPHine SULFATE 4 MG/ML 1 ML CARP\\VIAL IV STA ×2 (18:43→21:00)
[2019-10-20] MEDS ORDERED: SODIUM CHLORIDE 0.9% 500 ML IV SCH (18:45)
--- NOTE | 2019-10-20 18:51 | Emergency Department Note ---
History of Present Illness General Chief Complaint: Chest Pain Stated Complaint: CHEST PAIN Time Seen by Provider: 10/20/19 18:33 Source: patient Mode of arrival: wheelchair Limitations: no limitations History of Present Illness Provider Complaint: chest pain Onset (ago): day(s) 4 Duration: constant Onset: during rest Pain Location: substernal Pain Radiation: none Severity: moderate Maximum Pain Intensity: 8 Current Pain Intensity: 5 Quality: + other (Like being punched in the chest) Relieved By: + nothing Exacerbated By: + movement Context: no recent illness, no recent surgery, no recent immobilization, no recent travel and no trauma/injury Associated symptoms: no nausea, no diaphoresis, no sense of impending doom, no syncope, no palpitations, no fever, no cough and no leg swelling Treatments prior to arrival: none This is a 73-year-old female who presents to the ED with a chief complaint of chest pain for the past 4 days. She states that she awoke with the pain. She states that it feels like someone punching her in the chest. The patient states that she has increased pain with movement. She states that breathing increases the pain. It is in the retrosternal area. She does have a history of DVT and COPD. She denies any recent illness or fevers. No trauma. Related Data On Oral Contraceptives: No Home Medications Home Medications Medication Instructions Recorded Confirmed Type multivitamin 1 tab PO QAM 03/22/19 10/20/19 History pilocarpine HCl 2 % eye drops 1 drops OPB BID 03/22/19 10/20/19 History sertraline 100 mg tablet 100 mg PO QAM 03/22/19 10/20/19 History levothyroxine 150 mcg PO QAM 06/14/19 10/20/19 History magnesium oxide 400 mg PO QAM 07/30/19 10/20/19 History fluticasone furoate 200 1 puffs INH Q24H 09/21/19 10/20/19 History mcg-vilanterol 25 mcg/dose inhalation powder famotidine 20 mg tablet 20 mg PO DAILY #30 tab 09/22/19 10/20/19 Rx tramadol 25 mg PO Q12H PRN 10/10/19 10/20/19 History albuterol sulfate 1 puffs INH QID PRN 10/20/19 10/20/19 History etodolac 200 mg PO Q12H PRN 10/20/19 10/20/19 History Allergies Allergy/AdvReac Type Severity Reaction Status Date / Time enoxaparin [From Lovenox] Allergy Severe can not Verified 10/10/19 11:16 take d/t bleeding AVMs heparin Allergy Severe can not Verified 10/10/19 11:16 take d/t bleeding AVMs warfarin [From Coumadin] Allergy Severe can not Verified 10/10/19 11:16 take d/t bleeding AVMs levofloxacin [From Levaquin] Allergy Intermediate "tendons Verified 10/10/19 11:16 in back of leg/foot get hard" Past Med/Surg History Medical History Abnormal weight loss (Chronic) Acid reflux (Chronic) Acquired deformity of pinna (Chronic) Almost no appetite (Chronic) Aneurysm of anterior cerebral artery (Chronic) Anxiety Arteriosclerotic coronary artery disease (Chronic) Chronic anticoagulation on 325mg aspirin daily Chronic back pain Chronic diarrhea COPD (chronic obstructive pulmonary disease) (Chronic) inhaler daily/prn, nebulizer prn Degenerative disc disease Difficulty swallowing DVT (deep venous thrombosis) (Chronic) hx of in left leg 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 Rodríguez Osteoarthritis Other nonspecific lymphadenitis (Chronic) PVD (peripheral vascular disease) Seizure last 40yrs ago, was on Dilantin--follows with [place]. 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/won't turn up or down d/t nerve cutting in brain Surgical History [place] filter in place left History of angiography x25 cerebral angiogram History of appendectomy History of bilateral cataract extraction History of bilateral tubal ligation History of brain surgery x4 d/t AVM History of cardiac cath x2--last 08/2018 @ [facility] in [place], [place] no stent History of cholecystectomy History of colonoscopy History of partial thyroidectomy had done 1st d/t nodule and then later had a complete removal d/t goiter History of right-sided carotid endarterectomy History of surgery removal of large DVT from LLE History of surgery removal of right ear History of thyroidectomy, total d/t nodule and goiter History of tooth extraction all teeth Status post neck dissection AVMs Family History Mother CHF (congestive heart failure) Father Myocardial infarction Brother Family history of diabetes mellitus Other No family history of adverse response to anesthesia Social History Preferred Language: Latvian Communication Ability: Effective Visual Impairment: Diminished 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: Hard of Hearing [place] 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 Beliefs That Will Affect Care: None marital status: singled Current Living Situation: Family Current Living Situation Comment: with son and daughter in law current occupational status: disabled Feels Safe at Home: Yes Smoking Status: Current every day smoker Tobacco Type: cigarettes ; Cigarettes Per Day: 2-3 ; Second Hand Exposure: Yes (parents smoked/ smoked) ; Hx Alcohol Use: No Hx Substance Use: No Review of Systems A total of 10 systems reviewed and were otherwise negative Physical Exam Vital Signs Vital Signs - 24 hr 10/20/19 18:25 10/20/19 18:28 10/20/19 18:57 Temperature 36.6 C Temperature Source Oral Pulse Rate 97 H Pulse Rate [Apical] Pulse Rhythm [Apical] Respiratory Rate 20 Respiratory Effort / Characteristics Non-Labored Spontaneous Respiratory Depth Normal Blood Pressure 126/79 Blood Pressure [Right Arm] Blood Pressure Mean 94 Blood Pressure Mean [Right Arm] Blood Pressure Position Sitting Pulse Oximetry 95 97 Oxygen Delivery Method Room Air Room Air Room Air Oxygen Flow Rate 97 Sepsis Recent Fever Within 48 Hours No Sepsis Action Taken by Nursing No Action Required 10/20/19 19:05 Temperature Temperature Source Pulse Rate Pulse Rate [Apical] 86 Pulse Rhythm [Apical] Regular Respiratory Rate 16 Respiratory Effort / Characteristics Respiratory Depth Normal Blood Pressure Blood Pressure [Right Arm] 130/63 Blood Pressure Mean Blood Pressure Mean [Right Arm] 85 Blood Pressure Position Pulse Oximetry 96 Oxygen Delivery Method Room Air Oxygen Flow Rate Sepsis Recent Fever Within 48 Hours Sepsis Action Taken by Nursing CONSTITUTIONAL/VITAL SIGNS: Reviewed / noted above. GENERAL: Non-toxic in appearance. Patient is in no distress. INTEGUMENTARY: Warm, dry, and [place]. HEAD: Normocephalic. EYES: without scleral icterus or trauma. ENT/OROPHARYNX: clear and moist. LYMPHADENOPATHY/NECK: Is supple without lymphadenopathy or meningismus. RESPIRATORY: Lungs clear and equal. CARDIOVASCULAR: Regular rate and rhythm. CHEST: The patient has increased tenderness to palpation of the costochondral regions bilaterally. GI/ABDOMEN: Soft and nontender. No organomegaly or pulsatile mass. No rebound or guarding. Normal bowel sounds. EXTREMITIES: Warm and well perfused. BACK: No CVA tenderness. NEUROLOGICAL: Intact without focal deficits. PSYCHIATRIC: normal affect. MUSCULOSKELETAL: Normally developed with good muscle tone. TRIAGE NURSING DOCUMENTATION REVIEWED. Course Administered Medications Discontinued Medications Sodium Chloride (Nss) 500 mls @ 999 mls/hr IV .Q31M SACHIN Stop: 10/20/19 19:15 Last Infusion: 10/20/19 20:24 Dose: 0 mls/hr Documented by: [id number] Admin: 10/20/19 19:45 Dose: 999 mls/hr Documented by: [id number] Morphine Sulfate (Morphine Sulfate) 2 mg IV NOW STA Stop: 10/20/19 18:44 Last Admin: 10/20/19 19:45 Dose: 2 mg Documented by: [id number] Morphine Sulfate (Morphine Sulfate) 4 mg IV NOW STA Stop: 10/20/19 21:01 Last Admin: 10/20/19 21:03 Dose: 4 mg Documented by: [id number] Medical Decision Making Differential Diagnosis The differential that was considered includes acute myocardial infarction, acute coronary syndrome, myocarditis, pericarditis, pericardial effusions /tamponade, esophageal perforation, thoracic aortic dissection, pulmonary embolism, pneumonia, pneumothorax, pancreatitis, shingles, acute cholecystitis, perforated abdominal viscus. Medical Records Attestation: I reviewed the patient's medical records. Home Medications Current Medication List: was personally reviewed by me Laboratory Data Attestation: I reviewed the patient's lab results. Result diagrams: 10/20/19 19:48 10/20/19 19:48 Labs: Lab Results 10/20/19 10/20/19 Range/Units 19:48 19:48 WBC 9.16 (4.8-10.8) K/uL RBC 3.94 L (4.2-5.4) M/uL Hgb 11.8 L (12.0-16.0) g/dL Hct 34.1 L (37-47) % MCV 86.5 (80-100) fL MCH 29.9 (25-34) pg MCHC 34.6 (32-36) g/dL Plt Count 166 (130-400) K/uL Immature Gran % (Auto) 0.7 % Neut % (Auto) 70.8 % Lymph % (Auto) 14.5 % [place] % (Auto) 9.3 % Eos % (Auto) 3.8 % Baso % (Auto) 0.9 % Immature Gran # (Auto) 0.06 H (0.00-0.02) K/uL Neut # (Auto) 6.49 (1.4-6.5) K/uL Lymph # (Auto) 1.33 (1.2-3.4) K/uL [place] # (Auto) 0.85 H (0.11-0.59) K/uL Eos # (Auto) 0.35 (0-0.5) K/uL Baso # (Auto) 0.08 (0-0.2) K/uL Platelet Estimate Normal (Normal) Echinocytes 1+ Sodium 131 L (136-145) mmol/L Potassium 4.3 (3.5-5.1) mmol/L Chloride 102 (98-107) mmol/L Carbon Dioxide 22 (21-32) mmol/L Anion Gap 8.0 (3-11) BUN 14 (7-18) mg/dl Creatinine 0.62 (0.6-1.2) mg/dl Est Cr Clr Drug Dosing Not Reportable Est GFR ( Amer) 102.2 Est GFR (Non-Af Amer) 88.2 BUN/Creatinine Ratio 21.7 H (10-20) Glucose 101 H (70-99) mg/dl Calcium 9.3 (8.5-10.1) mg/dl Total Bilirubin 0.3 (0.2-1) mg/dl AST 31 (15-37) U/L ALT 27 (12-78) U/L Alkaline Phosphatase 126 H (45-117) U/L Troponin I < 0.015 (0-0.045) ng/ml Total Protein 7.3 (6.4-8.2) gm/dl Albumin 3.8 (3.4-5.0) gm/dl Globulin 3.5 (2.5-4.0) gm/dl Albumin/Globulin Ratio 1.1 (0.9-2) Lipase 1803 H (73-393) U/L Imaging Data Chest x-ray: Attestation: I personally reviewed and interpreted this imaging study as follows: My impression: No acute disease. Radiologist's impression: Chest x-ray:IMPRESSION: Emphysematous change with no active disease in the chest. IMPRESSION: 1. Significantly suboptimal examination without IV contrast. The examination is also significantly compromised by streak and motion artifact. 2. The unenhanced pancreas is atrophic and not well evaluated. Question faint peripancreatic stranding. Correlation with clinical findings and serum amylase/lipase levels will be essential. 3. There are age indeterminant compression deformities of T11, T12, and L2 which are new from 06/14/2019. Paravertebral edema is noted at T11 and T12 and these are likely acute to subacute. Correlate for point tenderness. 4. There is no bowel obstruction. Fluid-filled loops of normal caliber small bowel are noted in the pelvis. Correlate clinically for evidence of a mild nonspecific enteritis. 5. There is infiltration of the left infragluteal soft tissues. Correlate clinically for evidence of a developing decubitus ulceration. 6. A right ischiorectal hernia contains a nonobstructed portion of the rectum. ECG Data Attestation: I personally reviewed and interpreted this ECG as follows: Indication: chest pain Rate (beats per minute): 90 Rhythm: normal sinus Findings: no PVC and no ST elevation Blood Pressure Blood Pressure Findings: Normal blood pressure MDM Narrative This is a 73-year-old female who presents to the ED with a chief complaint of chest pain for the past 4 days. She states that she awoke with the pain. She states that it feels like someone punching her in the chest. The patient states that she has increased pain with movement. She states that breathing increases the pain. It is in the retrosternal area. She does have a history of DVT and COPD. She denies any recent illness or fevers. No trauma. The patient's vital signs are normal. Her exam is suggestive of a musculoskeletal type complaint. She has tenderness to palpation of the costochondral regions bilaterally. She also reports any movement like trying to sit up, move or twist causes increased pain. A twelve-lead EKG shows a normal sinus rhythm at a rate of 90 without ischemic changes. The patient's CBC is normal. Her sodium was 131. Troponin was negative. Lipase is 1803. A CT scan of the abdomen pelvis was performed. It was noted to be a suboptimal study as the patient did not have a large enough IV for an IV contrast study. There were possibly some stranding around the pancreas. There are also some other findings that did not seem to be pertinent to the patient's exam or history. The patient was treated with IV morphine and IV fluids. She will be seen by the hospitalist for further inpatient evaluation and care. Impression & Plan Acute pancreatitis Discharge Plan Visit Data Chief Complaint: Chest Pain Stated Complaint: CHEST PAIN ED Provider: Mal Ruff Discharge Problem: Acute pancreatitis Patient Disposition: Being Evaluated by Hospitalist Forms Stand Alone Forms: [facility] [place] [place] [employer] Prescriptions Prescriptions: No Action multivitamin tablet 1 tab PO QAM RF: 0 pilocarpine HCl 2 % drops 1 drops OPB BID RF: 0 sertraline 100 mg tablet 100 mg PO QAM RF: 0 Breo Ellipta 200-25 mcg/dose blister with device 1 puffs INH Q24H RF: 0 famotidine 20 mg tablet 20 mg PO DAILY Qty: 30 RF: 2 levothyroxine 150 mcg tablet 150 mcg PO QAM RF: 0 magnesium oxide 400 mg magnesium Tablet 400 mg PO QAM RF: 0 etodolac 200 mg capsule 200 mg PO Q12H PRN (Reason: Pain) RF: 0 albuterol sulfate 90 mcg/actuation HFA aerosol inhaler 1 puffs INH QID PRN (Reason: Shortness Of Breath Or Wheezing) RF: 0 tramadol 50 mg tablet 25 mg PO Q12H PRN (Reason: Pain) RF: 0 Referrals Referrals: Niyah Landaverde MD [Primary Care Provider] - Discharge Problem: Acute pancreatitis Qualifiers: Pancreatitis type: unspecified pancreatitis type Acute pancreatitis complication: no infection or necrosis Qualified Code(s): K85.90 - Acute pancreatitis without necrosis or infection, unspecified
--- NOTE | 2019-10-20 19:26 | XRay Report ---
SINGLE VIEW CHEST CLINICAL HISTORY: Atypical chest pain. FINDINGS: An AP, portable, upright chest radiograph is compared to chest x-ray and chest CT dated 09/28. The examination is degraded by portable technique and patient rotation. The heart is top norm al for projection noting atherosclerotic calcification of the thoracic aorta. Enlargement of the cent ral pulmonary arteries suggests pulmonary artery hypertension. Emphysema and chronic interstitial thi ckening are similar to previous. There is bibasilar scarring/atelectasis. No airspace consolidation o r large pleural effusion is identified. No pneumothorax is seen. The skeletal structures are osteopen ic. There are healed left-sided rib fractures. Vascular coils and surgical clips are seen in the neck . IMPRESSION: Emphysematous change with no active disease in the chest. ACT 112: Negative or not required by law. Electronically signed by: Marcello Jordan M.D. 10/20/2019 7:24 PM
[2019-10-20 20:18] LABS: Hematocrit (blood only) 34.1 % (37-47); Hemoglobin 11.8 g/dL (12.0-16.0); Mean Corpuscular Hemoglobin 29.9 pg (25-34); Mean Corpuscular Hgb Conc 34.6 g/dL (32-36); Mean Corpuscular Volume 86.5 fL (80-100); Red Blood Count 3.94 M/uL (4.2-5.4); White Blood Count 9.16 K/uL (4.8-10.8)
[2019-10-20 20:31] LABS: Alanine Aminotransferase 27 U/L (12-78); Albumin Level 3.8 gm/dl (3.4-5.0); Aspartate Aminotransferase 31 U/L (15-37); BUN Creatinine Ratio 21.7 (10-20); Blood Urea Nitrogen 14 mg/dl (7-18); Calcium 9.3 mg/dl (8.5-10.1); Carbon Dioxide 22 mmol/L (21-32); Chloride 102 mmol/L (98-107); Est GFR (African American) 102.2; Est GFR (Non-African American) 88.2; Glucose 101 mg/dl (70-99); Potassium 4.3 mmol/L (3.5-5.1); Sodium 131 mmol/L (136-145)
[2019-10-20 20:35] LABS: Albumin Globulin Ratio 1.1 (0.9-2); Alkaline Phosphatase 126 U/L (45-117); Bilirubin,Total 0.3 mg/dl (0.2-1); Globulin 3.5 gm/dl (2.5-4.0); Lipase 1803 U/L (73-393); Total Protein 7.3 gm/dl (6.4-8.2); Troponin I < 0.015 ng/ml (0-0.045)
[2019-10-20 20:43] LABS: Basophils # (auto) 0.08 K/uL (0-0.2); Basophils % (auto) 0.9 %; Echinocytes 1+; Eosinophils # (auto) 0.35 K/uL (0-0.5); Eosinophils % (auto) 3.8 %; Immature Granulocytes # (auto) 0.06 K/uL (0.00-0.02); Immature Granulocytes % (auto) 0.7 %; Lymphocytes # (auto) 1.33 K/uL (1.2-3.4); Lymphocytes % (auto) 14.5 %; Monocytes # (auto) 0.85 K/uL (0.11-0.59); Monocytes % (auto) 9.3 %; Neutrophils # (auto) 6.49 K/uL (1.4-6.5); Neutrophils % (auto) 70.8 %; Platelet Count 166 K/uL (130-400); Platelet Estimate Normal (Normal)
--- NOTE | 2019-10-20 21:45 | CT Scan Report ---
CT SCAN OF THE ABDOMEN AND PELVIS WITHOUT IV CONTRAST CLINICAL HISTORY: Elevated lipase. COMPARISON STUDY: Abdominal CT dated 06/14/2019. TECHNIQUE: CT scan of the abdomen and pelvis is performed from the lung bases to the proximal femora. Images are reviewed in the axial, sagittal, and coronal planes. IV contrast was not administered for this examination as per the referring clinician. Note that the examination was performed in signific antly suboptimal fashion without IV contrast. The examination is also degraded by motion artifact, an d by streak artifact from the arms which could not be elevated above the abdomen. A dose lowering edwin hnique was utilized adhering to the principles of ALARA. CT DOSE: 248.25 mGy.cm FINDINGS: Lung bases: The heart is time normal in size and without pericardial effusion. Evaluation of the lung bases is significantly compromised by motion. There is bibasilar scarring/atelectasis. No airspace c onsolidation or pleural effusion is identified. Liver: Evaluation of the liver is significantly compromised by streak and motion. The unenhanced live r is normal in size size and contour. The liver appears heterogeneous. There is at least mild central intrahepatic biliary ductal dilatation. Trace pneumobilia is noted in the left lobe. Calcified hepat ic granulomas are noted. Gallbladder: Surgically absent noting clips in the gallbladder fossa. Spleen: Normal in size and attenuation. There are numerous calcified splenic granulomas. Pancreas: The unenhanced pancreas is moderately atrophic and not well evaluated. Question faint perip ancreatic stranding. Adrenal glands: Unremarkable. Kidneys: The unenhanced kidneys are atrophic and without hydronephrosis. There are 2 left renal calci fications which could represent nonobstructing calculi or renovascular calcifications. There is no ev idence of contour deforming renal mass lesion. Abdominal vasculature: There is advanced atherosclerotic calcification and ectasia of the abdominal a aline. A stent is noted in the left iliac artery. Bowel: There is mild colonic diverticulosis without CT evidence of acute diverticulitis. Fecal retent ion is noted throughout the colon. There is a right ischiorectal hernia, best seen on image #346. No bowel obstruction is identified. There are nondistended loops of fluid-filled small bowel in the pelv is. The appendix is not identified and reported surgically absent. Peritoneum: There is no intraperitoneal free air or abdominal ascites. Lymphadenopathy: None. Pelvic viscera: The bladder is distended but otherwise normal in appearance. The uterus and adnexa ar e normal as visualized. There is infiltration of the left infragluteal soft tissues. This is seen on image #396. Skeletal structures: The skeletal structures are osteopenic. There is advanced lumbosacral spondylosi s as well as scoliosis. There are compression deformities of T11, T12, and L2. There is associated pa ravertebral edema at T11 and T12. These are age indeterminant but new from 06/14/2019. No lytic or bl astic lesions are seen. IMPRESSION: 1. Significantly suboptimal examination without IV contrast. The examination is also significantly co mpromised by streak and motion artifact. 2. The unenhanced pancreas is atrophic and not well evaluated. Question faint peripancreatic strandin g. Correlation with clinical findings and serum amylase/lipase levels will be essential. 3. There are age indeterminant compression deformities of T11, T12, and L2 which are new from 019. Paravertebral edema is noted at T11 and T12 and these are likely acute to subacute. Correlate fo r point tenderness. 4. There is no bowel obstruction. Fluid-filled loops of normal caliber small bowel are noted in the p rut. Correlate clinically for evidence of a mild nonspecific enteritis. 5. There is infiltration of the left infragluteal soft tissues. Correlate clinically for evidence of a developing decubitus ulceration. 6. A right ischiorectal hernia contains a nonobstructed portion of the rectum. 7. Additional findings as above. ACT 112: Negative or not required by law. Electronically signed by: Marcello Jordan M.D. 10/20/2019 9:43 PM
[2019-10-20] MEDS ORDERED: MoRPHine SULFATE 2 MG/ML CARP IV STA (23:04)
--- NOTE | 2019-10-21 00:02 | History & Physical Report ---
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 She was recently admitted from 10/09 to 10/10 for chest pain which she felt was different in character from her current symptoms. She has new compression fractures with edema appreciated on CT. Right upper quadrant abdominal pain with elevated alk phos and lipase Suspicious for pancreatitis, possible choledocholithiasis CBC, CMP daily N.p.o. MRCP pending LR 200 cc/h Pain control with hydromorphine 0.5/1.0 mg scaled every 3 hours - Lipids pending Continue Pepcid 20 mg daily Compression fracture with recent weight loss T11-L2 compression fracture with surrounding edema. Patient tender on spinal palpation No lesions or masses appreciated, patient has had some chills in the preceding weeks and 18 pounds of weight loss Her bony tenderness, compression fractures, weight loss, and appetite loss are concerning for underlying undiagnosed malignancy. MRCP as above, consider additional work-up if etiology does not declare itself during current evaluation - TSH pending History of ME versus heart failure with reduced ejection fraction Patient is not a good historian of her cardiac history. Etiology unclear, hx notes CAD with possible ME although additional notations suggests she actually had Takutsubo's stress cardiomyopathy with in [place] - TTE ordered given high fluid load with pancreatitis tx - Troponin negative - EKG without acute ST/T wave changes - Chest pain reproducible with palpation and movement, low suspicion for ACS - Given history will admit to med-tele and monitor overnight COPD Continue Brio Ellipta - Duonebs PRN Hypothyroidism Continue Synthroid 150 mcg daily Anxiety/depression Continue sertraline 100 mg daily IVFM: LR 200cc/hr as above Diet: NPO DVT Prophylaxis: SCDs. Anticoagulation contraindicated 2/2 AVMs. 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 She was recently admitted from 10/09 to 10/10 for chest pain which she felt was different in character. Sofia reports her pain began 4 days ago when she awoke from bed with a "bad pain "in her chest like she "was hit right in the chest with a fist "and that her pain, is so bad I cannot hardly move ". She reports her pain is in the middle of her sternum and does not radiate to the left or right side. She endorses that deep inspiration makes the pain worse. She reports movement can increase the pain to a 9/10, and notes no remitting factors. Her pain has been steady and unchanged to baseline and she has not had any pain-free moments since onset. She denies presyncope or syncope, although notes she has had lightheadedness especially when standing for many years since her AVM surgery. She endorses 18 pound weight loss over the last 4 weeks with severely decreased appetite, denies nausea/vomiting/constipation. She endorses intermittent diarrhea 1 month ago, with normal bowel movements every other day now and no blood or melena. She reports that she has additional right upper quadrant abdominal pain which seems to be worse when she does eat food, and her radiating pain seems to make her sternal pain slightly worse. She reports she feels completely drained of energy for many weeks. She denies vision change, although she notes she has decreased visual acuity and diplopia at baseline since her AVM surgery. She endorses that she has had increased pain in the last few days in her mid to low back which does not radiate out to the sides. She reports that her backache is "very bad "and is worsened with movement, she does not note remitting factors. Medications: Reviewed in EMR Medical history: As above, reviewed in EMR. Patient also endorses a DVT in 2007 which improved with aspirin therapy, she is not able to take anticoagulants due to her AVMs. Surgical history: Extensive surgical history including 14 embolizations and various AVM surgeries over the last 50 years. Allergies: Unable to take heparin or anticoagulation due to bleeding AVMs. Sensitivity to levofloxacin (pain/hardness and tendons). She reports she lives at home with her son Stanley and daughter Malaika who would be her decision makers should she be unable to make decisions for herself. She does not drink alcohol or use recreational drugs. She endorses a long history of tobacco use, currently 1 to 2 cigarettes/day. CODE STATUS: She reports she would want a trial of CPR and chest compressions, but does not want invasive ventilation. She understands that with her underlying conditions CPR would likely break ribs and could worsen her baseline level of function, but reports she would want a round of CPR but no additional heroic measures. Allergies Allergy/AdvReac Type Severity Reaction Status Date / Time enoxaparin [From Lovenox] Allergy Severe can not Verified 10/10/19 11:16 take d/t bleeding AVMs heparin Allergy Severe can not Verified 10/10/19 11:16 take d/t bleeding AVMs warfarin [From Coumadin] Allergy Severe can not Verified 10/10/19 11:16 take d/t bleeding AVMs levofloxacin [From Levaquin] Allergy Intermediate "tendons Verified 10/10/19 11:16 in back of leg/foot get hard" Home Medications Home Medications Medication Instructions Recorded Confirmed Type multivitamin 1 tab PO QAM 03/22/19 10/20/19 History pilocarpine HCl 2 % eye drops 1 drops OPB BID 03/22/19 10/20/19 History sertraline 100 mg tablet 100 mg PO QAM 03/22/19 10/20/19 History levothyroxine 150 mcg PO QAM 06/14/19 10/20/19 History magnesium oxide 400 mg PO QAM 07/30/19 10/20/19 History fluticasone furoate 200 1 puffs INH Q24H 09/21/19 10/20/19 History mcg-vilanterol 25 mcg/dose inhalation powder famotidine 20 mg tablet 20 mg PO DAILY #30 tab 09/22/19 10/20/19 Rx tramadol 25 mg PO Q12H PRN 10/10/19 10/20/19 History albuterol sulfate 1 puffs INH QID PRN 10/20/19 10/20/19 History etodolac 200 mg PO Q12H PRN 10/20/19 10/20/19 History Past Med/Surg History Medical History Abnormal weight loss (Chronic) Acid reflux (Chronic) Acquired deformity of pinna (Chronic) Almost no appetite (Chronic) Aneurysm of anterior cerebral artery (Chronic) Anxiety Arteriosclerotic coronary artery disease (Chronic) Chronic anticoagulation on 325mg aspirin daily Chronic back pain Chronic diarrhea COPD (chronic obstructive pulmonary disease) (Chronic) inhaler daily/prn, nebulizer prn Degenerative disc disease Difficulty swallowing DVT (deep venous thrombosis) (Chronic) hx of in left leg 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 Rodríguez Osteoarthritis Other nonspecific lymphadenitis (Chronic) PVD (peripheral vascular disease) Seizure last 40yrs ago, was on Dilantin--follows with Dr. 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/won't turn up or down d/t nerve cutting in brain Surgical History Luz filter in place left History of angiography x25 cerebral angiogram History of appendectomy History of bilateral cataract extraction History of bilateral tubal ligation History of brain surgery x4 d/t AVM History of cardiac cath x2--last 08/2018 @ [facility] in [place], [place] no stent History of cholecystectomy History of colonoscopy History of partial thyroidectomy had done 1st d/t nodule and then later had a complete removal d/t goiter History of right-sided carotid endarterectomy History of surgery removal of large DVT from LLE History of surgery removal of right ear History of thyroidectomy, total d/t nodule and goiter History of tooth extraction all teeth Status post neck dissection AVMs Family History Mother CHF (congestive heart failure) Father Myocardial infarction Brother Family history of diabetes mellitus Other No family history of adverse response to anesthesia Social History Preferred Language: Croatian Communication Ability: Effective Visual Impairment: Diminished 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: 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 Denies fever and weakness. Eyes: Endorses is double vision at baseline, denies acute vision change or eye pain. ENT: Denies ear pain, sore throat, sinus pain Cardiovascular: Endorses chest pain as noted in HPI. Respiratory: Endorses chronic shortness of breath due to COPD unchanged from baseline, denies cough. Gastrointestinal: As noted in HPI Genitourinary: Denies pain with urination, urinary urgency, urinary frequency Musculoskeletal: Endorses weakness, muscle aches in her left arm, and pain in her mid to lower central back. Endorses chest pain as noted in HPI. Integumentary:Denies acute rash/lesions. Neurological: Denies acute headache. Endorses some numbness and tingling in her left arm since a fall prior to her previous hospitalization, no acute changes and no focal weakness. Physical Exam Physical Exam: General: A&Ox3. NAD. Cachectic. Appears ill. HEENT: Right ear abnormality 2/2 postsurgical change. Mucous membranes dry. Oropharynx without lesions. Pulm: Diffuse end expiratory wheezes. Scattered crackles diffusely without focal rales. No increased work of breathing. Chest rise symmetrical. Cardiac: RRR, -mrg. Radial pulses intact and symmetrical. Abdominal: Tender to palpation in right upper and right lower quadrant. Abdomen soft, without rigidity. No left quadrant tenderness or rebound. Bowel sounds intact. CN II: Visual lozano are full to confrontation. Pupils are equal and react to light and accomidation. Visual acuity grossly intact, diplopia as noted above. CN III, IV, : At primary gaze, right exotropia. EoM intact. CN V: Facial sensation is intact to soft touch in all 3 divisions bilaterally. CN VII: Right-sided postsurgical facial asymmetry/fullness. Full strength to eyebrow raise/smile/eye close CN VII: Hearing decreased bilaterally. CN IX, X: Palate elevates symmetrically. Phonation is normal without dysarthria. CN XI: Head turning and shoulder shrug are intact CN XII: Tongue protrudes midline. Sensory: Light touch, pinprick intact in upper and low extremities without deficit or asymmetry. Extremity: Ankle plantarflexion/dorsiflexion intact and symmetrical bilaterally. Privacy Analyst strength intact bilaterally. Moving all extremities equally. Spine: Focal tenderness at approximately T10-L3 to mid spinal palpation without radicular symptoms. No paraspinal tenderness. Results & Data Results & Data ([facility]) Vital Signs (Past 12 Hours) Vital Signs Temp Pulse Pulse Resp BP BP Pulse Ox 10/20/19 19:05 86 16 130/63 96 10/20/19 18:57 97 10/20/19 18:25 36.6 C 97 H 20 126/79 95 Code Status & VTE Plan VTE Prophylaxis Plan VTE Prophylaxis will be ordered: Yes Supervising Physician Co-Signing Physician Notes Patient seen and examined, chart reviewed, case discussed with Dr. Bach and I agree with his assessment and plan as documented above. Briefly, patient is a 73yo C female presenting with chest/sternal pain. Recently admitted for CP and was ruled out for ACS with enzymes - this pain is different. Found to have pancreatitis, compression fracture new to T12 - L2 (no trauma) On exam patient appear thin, chronically ill, NAD Skin - warm, dry, no rash, left foot with cracked skin HEENT - NC/AT, PERRL, EOMI, dry mucus membranes, post-surgical changes on right ear Heart - +S1/S2, regular Lungs - Coarse breath sounds anteriorly, no wheezing, tenderness with palpation of sternum Abd - +BS, soft, tender in epigastric area and upper abdomen, no rebound/guarding/peritoneal signs Ext - No edema Labs and images reviewed Assessment/Plan - 73yo C female presenting with chest discomfort, found to have pancreatitis, new compression fracture. Also endorses significant unintentional weight loss, poor appetite. Concern for possible malignancy? -Admit to medical floor -Keep NPO -IVF, pain control and anti-emetics as needed -Check MRCP -Repeat LFts in AM -Consider GI consultation pending results of ERCP -Check 2D echo -Remainder of plan as above Resident Activity Tracking Resident Involvement: Resident Care Provided Care Provided: Adult Hospital Medicine (1) Acute pancreatitis Acute pancreatitis complication: no infection or necrosis Pancreatitis type: unspecified pancreatitis type Qualified Code(s): K85.90 - Acute pancreatitis without necrosis or infection, unspecified
[2019-10-21] MEDS ORDERED: MoRPHine SULFATE 4 MG/ML 1 ML CARP\\VIAL IV PRN (00:27)
[2019-10-21] MEDS ORDERED: MoRPHine SULFATE 2 MG/ML CARP IV PRN (00:27)
[2019-10-21] MEDS: LACTATED RINGER'S 1,000 ML IV SCH ×3 (00:43→10:34)
--- NOTE | 2019-10-21 01:00 | Billing Data ---
Date of Service October 21, 2019 Coding Level of Care Code 14005 Initial Inpt Care Lvl 3
[2019-10-21] MEDS: HYDROmorphone INJ 1 MG/ML SYRINGE IV PRN ×5 (01:14→21:34)
[2019-10-21] MEDS: LEVOTHYROXINE SODIUM 150 MCG TABLET PO SCH (06:06)
[2019-10-21 06:41] LABS: Basophils # (auto) 0.05 K/uL (0-0.2); Basophils % (auto) 0.6 %; Eosinophils # (auto) 0.28 K/uL (0-0.5); Eosinophils % (auto) 3.4 %; Hematocrit (blood only) 30.8 % (37-47); Hemoglobin 10.9 g/dL (12.0-16.0); Immature Granulocytes # (auto) 0.05 K/uL (0.00-0.02); Immature Granulocytes % (auto) 0.6 %; Lymphocytes # (auto) 1.48 K/uL (1.2-3.4); Lymphocytes % (auto) 17.8 %; Mean Corpuscular Hemoglobin 30.6 pg (25-34); Mean Corpuscular Hgb Conc 35.4 g/dL (32-36); Mean Corpuscular Volume 86.5 fL (80-100); Mean Platelet Volume 8.6 fL (7.4-10.4); Monocytes # (auto) 1.03 K/uL (0.11-0.59); Monocytes % (auto) 12.4 %; Neutrophils # (auto) 5.43 K/uL (1.4-6.5); Neutrophils % (auto) 65.2 %; Platelet Count 232 K/uL (130-400); RDW Coefficient of Variation 14.9 % (11.5-14.5); Red Blood Count 3.56 M/uL (4.2-5.4); White Blood Count 8.32 K/uL (4.8-10.8)
[2019-10-21 06:57] LABS: INR 1.1 (0.9-1.1); Partial Thromboplastin Ratio 0.9; Partial Thromboplastin Time 26.5 Seconds (21.0-31.0); Prothrombin Time 11.4 Seconds (9.0-12.0)
[2019-10-21 07:18] LABS: Albumin Level 3.4 gm/dl (3.4-5.0); BUN Creatinine Ratio 20.4 (10-20); Creatinine Clr Calc Pharmacy 70.7 ml/min; Est GFR (African American) 105.1; Est GFR (Non-African American) 90.7; Potassium 4.3 mmol/L (3.5-5.1)
[2019-10-21 07:21] LABS: Bilirubin,Total 0.4 mg/dl (0.2-1); Globulin 3.3 gm/dl (2.5-4.0); Total Protein 6.7 gm/dl (6.4-8.2)
--- NOTE | 2019-10-21 08:03 | Ultrasound Report ---
US gallbladder CLINICAL HISTORY: ?choledocholithiasis, pancreatitis COMPARISON STUDY: CT of the abdomen and pelvis October 20, 2019. FINDINGS: This exam is compromised by respiratory motion. Moderate biliary ductal dilatation is noted status post cholecystectomy. The common bile duct measures 12 mm in caliber. No common bile duct marian culi are identified. There is a possible 2 cm hypoechoic lesion within the pancreatic head. There may be associated pancreatic ductal dilatation. The pancreatic duct measures approximately 6 mm in calib er. Two hypoechoic hepatic lesions measure up to 1.9 cm. These were not evident on prior CT exams. Th ere is no right hydronephrosis. IMPRESSION: 1. Possible 2 cm pancreatic head mass with pancreatic ductal dilatation. Pancreatic protocol CT with and without contrast is recommended. 2. Two hypoechoic hepatic lesions that measure up to 1.9 cm. These may reflect metastases and can be assessed on CT. 3. Moderate biliary ductal dilatation status post cholecystectomy. No common bile duct calculi identi fied. ACT 112: Positive. There are findings on this exam that require communication between the performing entity and the patient following Patient Test Result Information Act ([place] Act 112) guidelines. Electronically signed by: Serafin Locke M.D. 10/21/2019 8:02 AM
[2019-10-21] MEDS: FAMOTIDINE 20 MG TAB PO SCH (08:07)
[2019-10-21] MEDS: PILOCARPINE HCL 2% OP SOLN 15 ML BTL OPB SCH ×2 (08:07→21:34)
[2019-10-21] MEDS: SERTRALINE HCL 100 MG TABLET PO SCH (08:07)
[2019-10-21] MEDS: MULTIVITAMIN TAB PO SCH (08:07)
[2019-10-21] MEDS: MAGNESIUM OXIDE 400 MG TAB PO SCH (08:08)
[2019-10-21] MEDS: HYDROmorphone INJ 0.5 MG/0.5 ML SYR IV PRN (08:11)
[2019-10-21] MEDS: FLUTICASONE/VILANTEROL 200/25MCG 14 PUFFS/INHALER INH SCH (08:13)
--- NOTE | 2019-10-21 12:30 | Communication Note ---
Date of Service: October 21, 2019 GI brief note: 73 yo female here with pancreatitis. abdominal imaging shows PD dilation and pancreatic head mass (2 cm), as well as CBD dilation to 12 mm although she is s/p CCY (this is still dilated however beyond expectation). Impression: pancreatitis with panc head mass and ductal dilation, no evidence of cholelithiasis Recs: --MRCP today with gadolinium, I ordered this and discussed with radiology to have this done today -- discussed with advanced GI Dr. Kat, she will need EUS and possibly ERCP; possibly tomorrow --keep NPO --supportive care, IVFs, pain control --rest as per primary team Ismael Spence MD Gastroenterology
--- NOTE | 2019-10-21 14:23 | Electrocardiogram Report ---
Test Reason : Blood Pressure : / mmHG Vent. Rate : 090 BPM Atrial Rate : 090 BPM P-R Int : 124 ms QRS Dur : 066 ms QT Int : 322 ms P-R-T Axes : 073 085 053 degrees QTc Int : 393 ms Poor data quality, interpretation may be adversely affected Normal sinus rhythm Nonspecific ST abnormality Normal ECG When compared with ECG of 11-OCT-2019 06:31, Premature ventricular complexes are no longer Present Premature atrial complexes are no longer Present Nonspecific T wave abnormality has replaced inverted T waves in Anterior leads Confirmed by Jason Servin ([id number]) on 10/21/2019 2:22:53 PM Referred By: REFERRED SELF Confirmed By:Henry Servin
--- NOTE | 2019-10-21 22:54 | Hospitalist Progress Note ---
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 She was recently admitted from 10/09 to 10/10 for chest pain which she felt was different in character from her current symptoms. She has new compression fractures with edema appreciated on CT. Right upper quadrant abdominal pain with elevated alk phos and lipase Suspicious for pancreatitis, possible choledocholithiasis and pancreatic mass CBC, CMP daily N.p.o. MRCP is not able to be completed as patient has hardware that is not compatibile with an MRI machine. LR 200 cc/h Pain control with hydromorphine 0.5/1.0 mg scaled every 3 hours Continue Pepcid 20 mg daily Compression fracture with recent weight loss T11-L2 compression fracture with surrounding edema. Patient tender on spinal palpation No lesions or masses appreciated, patient has had some chills in the preceding weeks and 18 pounds of weight loss Her bony tenderness, compression fractures, weight loss, and appetite loss are concerning for underlying undiagnosed malignancy. MRCP as above, consider additional work-up if etiology does not declare itself during current evaluation - TSHis at goal. History of MD versus heart failure with reduced ejection fraction Patient is not a good historian of her cardiac history. Etiology unclear, hx notes CAD with possible MD although additional notations suggests she actually had Takutsubo's stress cardiomyopathy with in [place] - TTE ordered given high fluid load with pancreatitis tx - Troponin negative - EKG without acute ST/T wave changes - Chest pain reproducible with palpation and movement, low suspicion for ACS - Given history will admit to med-tele and monitor overnight COPD Continue Brio Ellipta - Duonebs PRN Hypothyroidism Continue Synthroid 150 mcg daily Anxiety/depression Continue sertraline 100 mg daily IVFM: LR 200cc/hr as above Diet: NPO DVT Prophylaxis: SCDs. Anticoagulation contraindicated 2/2 AVMs. Code Status: Conditional Code (2) Elevated alkaline phosphatase level: (3) AVM (arteriovenous malformation): (4) COPD (chronic obstructive pulmonary disease): (5) Abnormal weight loss: (6) Sensorineural hearing loss of both ears: (7) Arteriosclerotic coronary artery disease: (8) Severe protein-calorie malnutrition: currently NPO cONCERN OVER PANCREATIC MASS. Will get an EUS likely during this hospital stay. Admission and Anticipated Discharge Date Admission Date: October 20, 2019 Subjective Patient reports no new symptoms. She continues to have chest pain at rest, it is sharp i nature and has not subsided. She reports her belly pain has improved. Will continue to monitor Review of Systems Review of Systems: All systems reviewed & are unremarkable except as noted in HPI & below Physical Exam Physical Exam: General: A&Ox3. NAD. Cachectic. Appears ill. HEENT: Right ear abnormality 2/2 postsurgical change. Mucous membranes dry. Or opharynx without lesions. Pulm: improved breath sounds Chest rise symmetrical. Cardiac: RRR, -mrg. Radial pulses intact and symmetrical. Abdominal: Tender to palpation in right upper and right lower quadrant. Abdomen soft, without rigidity. No left quadrant tenderness or rebound. Bowel sounds intact. Extremity: Ankle plantarflexion/dorsiflexion intact and symmetrical bilaterally. Civil Engineering Project Manager strength intact bilaterally. Moving all extremities equally. Spine: Focal tenderness at approximately T10-L3 to mid spinal palpation without radicular symptoms. No paraspinal tenderness. Results & Data Results & Data ([facility]) Vital Signs (Past 12 Hours) Vital Signs Temp Pulse Resp BP BP Pulse Ox 10/21/19 21:15 36.5 C 99 H 22 144/69 H 90 10/21/19 15:42 37.0 C 92 H 19 117/56 L 92 10/21/19 11:09 36.8 C 100 H 18 121/54 L 93 PG Care Time/CCT Total # of Minutes Spent Total Time Spent with Patient: Total time spent is greater than 50% in coordination of care (as documented) at patient's floor/unit and/or counseling patient: Coding Level of Care Code 44763 Subseq Hosp Care Lvl 3 Diagnoses Acute pancreatitis K85.90 Acute pancreatitis complication: no infection or necrosis Pancreatitis type: unspecified pancreatitis type Elevated alkaline phosphatase level R74.8 AVM (arteriovenous malformation) Q27.30 COPD (chronic obstructive pulmonary disease) J44.9 Abnormal weight loss R63.4 Sensorineural hearing loss of both ears H90.3 Arteriosclerotic coronary artery disease I25.10 Severe protein-calorie malnutrition E43 Time Spent (min) 35 (1) Acute pancreatitis Acute pancreatitis complication: no infection or necrosis Pancreatitis type: unspecified pancreatitis type Qualified Code(s): K85.90 - Acute pancreatitis without necrosis or infection, unspecified
[2019-10-22] MEDS: LACTATED RINGER'S 1,000 ML IV SCH (02:54)
[2019-10-22] MEDS: HYDROmorphone INJ 1 MG/ML SYRINGE IV PRN ×3 (03:03→11:54)
[2019-10-22] MEDS: LEVOTHYROXINE SODIUM 150 MCG TABLET PO SCH (05:32)
[2019-10-22] MEDS: FLUTICASONE/VILANTEROL 200/25MCG 14 PUFFS/INHALER INH SCH (06:51)
[2019-10-22 07:19] LABS: Basophils # (auto) 0.06 K/uL (0-0.2); Basophils % (auto) 0.8 %; Eosinophils # (auto) 0.31 K/uL (0-0.5); Hematocrit (blood only) 32.9 % (37-47); Hemoglobin 11.6 g/dL (12.0-16.0); Immature Granulocytes # (auto) 0.04 K/uL (0.00-0.02); Immature Granulocytes % (auto) 0.5 %; Mean Corpuscular Hemoglobin 30.4 pg (25-34); Mean Corpuscular Hgb Conc 35.3 g/dL (32-36); Mean Corpuscular Volume 86.1 fL (80-100); Mean Platelet Volume 8.9 fL (7.4-10.4); Monocytes % (auto) 12.8 %; Neutrophils # (auto) 4.98 K/uL (1.4-6.5); Neutrophils % (auto) 63.9 %; Platelet Count 238 K/uL (130-400); RDW Coefficient of Variation 15.2 % (11.5-14.5); RDW Standard Deviation 47.8 fL (36.4-46.3); Red Blood Count 3.82 M/uL (4.2-5.4); White Blood Count 7.79 K/uL (4.8-10.8)
[2019-10-22 07:41] LABS: Albumin Level 3.3 gm/dl (3.4-5.0); BUN Creatinine Ratio 18.6 (10-20); Calcium 8.9 mg/dl (8.5-10.1); Creatinine Clr Calc Pharmacy 85.3 ml/min; Est GFR (African American) 109.7; Est GFR (Non-African American) 94.7; Potassium 4.1 mmol/L (3.5-5.1)
[2019-10-22 07:44] LABS: Bilirubin,Total 0.5 mg/dl (0.2-1); Globulin 3.2 gm/dl (2.5-4.0); Total Protein 6.5 gm/dl (6.4-8.2)
[2019-10-22] MEDS: PILOCARPINE HCL 2% OP SOLN 15 ML BTL OPB SCH ×2 (08:17→21:25)
[2019-10-22] MEDS: FAMOTIDINE 20 MG TAB PO SCH (08:18)
[2019-10-22] MEDS: SERTRALINE HCL 100 MG TABLET PO SCH (08:18)
[2019-10-22] MEDS: MULTIVITAMIN TAB PO SCH (08:18)
[2019-10-22] MEDS: MAGNESIUM OXIDE 400 MG TAB PO SCH (08:18)
[2019-10-22] MEDS ORDERED: IOVERSOL 100ml IV PRN (09:23)
--- NOTE | 2019-10-22 09:27 | Communication Note ---
Date of Service: October 22, 2019 GI brief note not able to get MRCP due to having ashley. Recs: --obtain CT A/P pancreatic protocol (with IV contrast) STAT now --keep NPO --tentatively plan for EUS/ERCP this afternoon --IVFs, supportive care Ismael Spence MD Gastroenterology
--- NOTE | 2019-10-22 09:57 | CT Scan Report ---
CT abdomen pelvis wo/w con CLINICAL HISTORY: 73 years-old Female presenting with pancreatic protocol - possible pancreatic head mass. TECHNIQUE: Multidetector CT of the abdomen and pelvis was performed before and after the administrati on of intravenous contrast. IV contrast: 93 mL of Optiray 320. One or more dose lowering techniques w ere used consistent with the principles of ALARA (as low as reasonably achievable), including automat ic exposure control, mA or kV adjustment to individual patient size, and/or use of iterative reconstr uction. COMPARISON: Noncontrast CT from 10/20/2019 and ultrasound from 10/21/2019. CT DOSE (mGy.cm): The estimated cumulative dose is 690.50 mGy.cm. FINDINGS: Cemetery Counselor topogram: Cholecystectomy clips. Image quality is degraded by positioning of the arms at the sides, which moderately limits diagnostic sensitivity especially in the upper abdomen. Lung bases: Normal heart size. Coronary artery and aortic valve calcification. Trace right and small left pleural effusions. Elevation of the hemidiaphragms. Dependent atelectasis in the lower lobes. Liver: Normal morphology. Liver lesions evident on ultrasound not apparent. Patent hepatic vasculatur e. Biliary: Mild biliary ductal prominence likely a reservoir effect in the post cholecystectomy state. Gallbladder surgically absent. Pancreas: The reported possible mass in the pancreatic head on ultrasound is poorly demonstrated on t his exam. There may be focal cystic change at the pancreatic head though this is difficult to disting uish from the adjacent duodenum given image quality (series 7 image 188). Mild parenchymal atrophy. Spleen: Normal. Adrenal glands: Normal. Kidneys and ureters: Normal. No hydronephrosis. Bladder: Normal. Pelvic organs: Uterus and ovaries normal. Bowel: Moderate sliding-type hiatal hernia. No bowel obstruction. Peritoneal cavity: No free fluid or intraperitoneal gas. Lymph nodes: No enlarged lymph nodes in the abdomen or pelvis. Vasculature: Extensive calcified atherosclerotic plaque. This results in significant luminal irregula rity and multifocal ectasia of the abdominal aorta. Maximal aortic diameter 2.6 cm in axial dimension . Multifocal severe calcified luminal plaque results in stenoses. Stent noted in the left common radha c artery. Abdominal wall: Redemonstration of infiltration over the ischia bilaterally raising concern for decub itus ulcers. Mild body wall edema. Musculoskeletal: Moderate compression deformity of T11 and T12 and to a slightly lesser extent at L2. Findings are unchanged. IMPRESSION: 1. Limited examination due to positioning of the arms at the sides. This results in moderately decre ases diagnostic sensitivity the exam. A questionable low density lesion may be present in the pancrea tic head neoplasm cannot be excluded based on these images. A contrast-enhanced MRI may be the better test to confirm the presence of a possible pancreatic mass as suggested on ultrasound. 2. Underlying hepatic lesions evident on ultrasound are also not well demonstrated. These could also be assessed on MRI. 3. Post cholecystectomy changes with a dilated biliary ductal system likely representing a reservoir effect. 4. Severe atherosclerosis with multifocal severe stenoses due to calcified atherosclerotic plaque. ACT 112: Negative or not required by law. Electronically signed by: Eddie Rivera M.D. 10/22/2019 9:56 AM
--- NOTE | 2019-10-22 11:29 | XCELERA ---
[id number] \\[id number]
[2019-10-22] MEDS ORDERED: ALBUTEROL HFA 8 GM INHALER INH PRN (11:58)
[2019-10-22] MEDS ORDERED: ONDANSETRON INJ 2 MG/ML 2 ML VIAL IV PRN (13:44)
[2019-10-22] MEDS ORDERED: fentaNYL citrate 100 MCG/2 ML VIAL IV PRN (13:44)
[2019-10-22] MEDS ORDERED: ePHEDrine sulfate 50 MG/ML AMP IV PRN (13:44)
[2019-10-22] MEDS ORDERED: ATROPINE SULFATE 0.1 MG/ML 10ML SYR IV PRN (13:44)
--- NOTE | 2019-10-22 13:54 | Anesthesiology Consultation ---
Date of Service October 22, 2019 Assessment & Plan (1) Encounter for pre-operative examination: Chart Review Chart Review: Acceptable Risk for Surgery and Patient NOT seen in Pre Admission Testing Consults Requested none History Surgery Operation Date: 10/22/19 08:10 Proposed Procedures p Endoscopic Retrograde Cholangiopancreatogram - Kait North s Endoscopic Ultrasonography Upper - Kait Kat Height/Weight Height: 5 ft 8 in Weight: 55.6 kg Allergies Allergy/AdvReac Type Severity Reaction Status Date / Time enoxaparin [From Lovenox] Allergy Severe can not Verified 10/10/19 11:16 take d/t bleeding AVMs heparin Allergy Severe can not Verified 10/10/19 11:16 take d/t bleeding AVMs warfarin [From Coumadin] Allergy Severe can not Verified 10/10/19 11:16 take d/t bleeding AVMs levofloxacin [From Levaquin] Allergy Intermediate "tendons Verified 10/10/19 11:16 in back of leg/foot get hard" Medications Home Medications Medication Instructions Recorded Confirmed Last Taken multivitamin 1 tab PO QAM 03/22/19 10/20/19 08/05/19 08:00 pilocarpine HCl 2 % eye drops 1 drops OPB BID 03/22/19 10/20/19 08/06/19 07:00 sertraline 100 mg tablet 100 mg PO QAM 03/22/19 10/20/19 08/05/19 08:00 levothyroxine 150 mcg PO QAM 06/14/19 10/20/19 08/06/19 06:00 magnesium oxide 400 mg PO QAM 07/30/19 10/20/19 08/05/19 08:00 fluticasone furoate 200 1 puffs INH Q24H 09/21/19 10/20/19 Unknown mcg-vilanterol 25 mcg/dose inhalation powder famotidine 20 mg tablet 20 mg PO DAILY #30 tab 09/22/19 10/20/19 Unknown tramadol 25 mg PO Q12H PRN 10/10/19 10/20/19 Unknown albuterol sulfate 1 puffs INH QID PRN 10/20/19 10/20/19 Unknown etodolac 200 mg PO Q12H PRN 10/20/19 10/20/19 Unknown Active Medications Generic Name Dose Route Start Last Admin Trade Name Freq PRN Reason Stop Dose Admin Famotidine 20 mg 04/23/20 09:00 10/22/19 08:18 Pepcid PO 11/20/19 08:59 20 mg DAILY SACHIN Administration Fluticasone/Vilanterol 1 puffs 10/21/19 09:00 10/22/19 06:51 Breo Ellipta 200/25 Mcg Inh INH 11/20/19 08:59 1 puffs DAILY SACHIN Administration Hydromorphone HCl 0.5 mg 10/21/19 00:27 10/21/19 08:11 Dilaudid IV 11/04/19 00:26 0.5 mg Q3H PRN Administration Moderate Pain (4,5,6) Hydromorphone HCl 1 mg 10/21/19 00:27 10/22/19 11:54 Dilaudid IV 11/04/19 00:26 1 mg Q3H PRN Administration Severe Pain (7,8,9,10) Lactated Ringer's 1,000 mls @ 70 mls/hr 10/22/19 02:45 10/22/19 02:54 Lr IV 11/21/19 02:44 70 mls/hr .[id number] SACHIN Administration Ioversol 94 ml 10/22/19 09:23 10/22/19 09:24 Optiray 320 100ml IV 10/26/19 09:22 94 ml ONCE PRN Administration Interaction Checking Levothyroxine Sodium 150 mcg 10/21/19 06:30 10/22/19 05:32 Synthroid PO 11/20/19 06:29 150 mcg DAILYBB SACHIN Administration Magnesium Oxide 400 mg 10/21/19 09:00 10/22/19 08:18 Mag-Ox PO 11/20/19 08:59 400 mg QAM SACHIN Administration Multivitamins 1 tab 10/21/19 09:00 10/22/19 08:18 Multivitamin Tab PO 11/20/19 08:59 1 tab QAM SACHIN Administration Pilocarpine HCl 1 drops 10/21/19 09:00 10/22/19 08:17 Isopto Carpine 2% Oph Soln OPB 11/20/19 08:59 1 drops BID SACHIN Administration Sertraline HCl 100 mg 10/21/19 09:00 10/22/19 08:18 Zoloft PO 11/20/19 08:59 100 mg QAM SACHIN Administration NPO Date Last Intake of Fluids: 10/22/19 Time Last Intake of Fluids: 08:18 Last Intake of Fluids Comment: sip of water with pills per Nghia Burgos RN Date Last Intake of Solids: 10/20/19 Past Medical History Medical History Abnormal weight loss (Chronic) Acid reflux (Chronic) Acquired deformity of pinna (Chronic) Almost no appetite (Chronic) Aneurysm of anterior cerebral artery (Chronic) Anxiety Arteriosclerotic coronary artery disease (Chronic) Chronic anticoagulation on 325mg aspirin daily Chronic back pain Chronic diarrhea COPD (chronic obstructive pulmonary disease) (Chronic) inhaler daily/prn, nebulizer prn Degenerative disc disease Difficulty swallowing DVT (deep venous thrombosis) (Chronic) hx of in left leg 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 Rodríguez Osteoarthritis Other nonspecific lymphadenitis (Chronic) PVD (peripheral vascular disease) Seizure last 40yrs ago, was on Dilantin--follow[place] with [place]. John [place] [facility] [place] Sensorineural hearing loss of both ears (Chronic) Solitary pulmonary nodule (Chronic) Spinal stenosis Systolic heart failure (Chronic) Ventricular hypokinesia (Chronic) Vision loss of right eye eye droops/won't turn up or down d/t nerve cutting in brain Exercise / Class Metabolic Activity III < 4 Walking/Shop/Light housework Past Family History Family History Mother CHF (congestive heart failure) Father Myocardial infarction Brother Family history of diabetes mellitus Other No family history of adverse response to anesthesia Past Surgical History Surgical History [place] filter in place left History of angiography x25 cerebral angiogram History of appendectomy History of bilateral cataract extraction History of bilateral tubal ligation History of brain surgery x4 d/t AVM History of cardiac cath x2--last 08/2018 @ [facility] in [place], [place] no stent History of cholecystectomy History of colonoscopy History of partial thyroidectomy had done 1st d/t nodule and then later had a complete removal d/t goiter History of right-sided carotid endarterectomy History of surgery removal of large DVT from LLE History of surgery removal of right ear History of thyroidectomy, total d/t nodule and goiter History of tooth extraction all teeth Status post neck dissection AVMs Past Anesthesia History No Hx of Anesthesia Complications and No Family Hx of Anesthesia Complications History of PONV No Hx of PONV and No Hx of Motion Sickness Social History Smoking Status: Current every day smoker tobacco type: cigarettes Smoking cigarettes per day: 3 Do You Dip or Chew Tobacco: No Hx Alcohol Use: No Hx Substance Use: No substance use type: does not use Physical Exam Vital Signs Last Vital Signs Temp 37.0 C 10/22/19 13:00 Pulse 98 H 10/22/19 13:00 Resp 20 10/22/19 13:00 BP 138/56 L 10/22/19 13:00 Pulse Ox 91 10/22/19 13:00 Testing Laboratory Results 10/22/19 07:05 10/22/19 07:05 PT 11.4 Seconds (9.0-12.0) 10/21/19 06:29 INR 1.1 (0.9-1.1) 10/21/19 06:29 APTT 26.5 Seconds (21.0-31.0) 10/21/19 06:29 Electrocardiogram Date: 10/20/19 Findings: + NSR @ (90) Poor data quality, interpretation may be adversely affected Normal sinus rhythm Nonspecific ST abnormality Normal ECG When compared with ECG of 11-OCT-2019 06:31, Premature ventricular complexes are no longer Present Premature atrial complexes are no longer Present Nonspecific T wave abnormality has replaced inverted T waves in Anterior leads Confirmed by Jason Servin ([id number]) on 10/21/2019 2:22:53 PM Chest X-Ray Date: 10/20/19 SINGLE VIEW CHEST CLINICAL HISTORY: Atypical chest pain. FINDINGS: An AP, portable, upright chest radiograph is compared to chest x-ray and chest CT dated 10/10/2019. The examination is degraded by portable technique and patient rotation. The heart is top normal for projection noting atherosclerotic calcification of the thoracic aorta. Enlargement of the central pulmonary arteries suggests pulmonary artery hypertension. Emphysema and chronic interstitial thickening are similar to previous. There is bibasilar scarring/atelectasis. No airspace consolidation or large pleural effusion is identified. No pneumothorax is seen. The skeletal structures are osteopenic. There are healed left-sided rib fractures. Vascular coils and surgical clips are seen in the neck. IMPRESSION: Emphysematous change with no active disease in the chest. Echocardiogram Date: 10/21/19 EF: 60-65% LV systolic function is normal. Left atrium is mildly dilated. AV sclerosis mild, without significant aortic valvular stenosis. RV systolic pressure is elevated at 30-40mmHg.
[2019-10-22] MEDS ORDERED: PIPERACILL/TAZOBAC CONSULT ACTIVE PRN (14:27)
--- NOTE | 2019-10-22 14:27 | History & Physical Report ---
Date of Service October 22, 2019 Assessment & Plan (1) Pancreatic mass: The patient presents with a history of epigastric pain over the last few months with an ultrasound which seems to suggest a mass within the pancreatic head. Given the clinical scenario endoscopic ultrasound with possible ERCP has been requested by Dr. Spence. Of note she does have a dilated common bile duct and elevation of her alkaline phosphatase. Given the patient's mental status consent for the procedure obtained via her daughter who is her power of erisa attorney. We did discuss the risks to include bleeding, infection, perforation, pancreatitis and need for follow-up studies History of Present Illness Chief Complaint: Suspected pancreatic mass Primary Care Provider: Niyah Landaverde MD Patient is a 73-year-old female who presented with recurrent abdominal discomfort. The patient is a poor historian due to underlying dementia but has had intermittent symptoms over the past few months. Imaging during her initial evaluation showed a suggestive masslike lesion in the pancreatic head on ultrasound. EUS has been requested with possible ERCP for further evaluation. Overnight the patient's lipase went from 1500 to within normal limits. Allergies Allergy/AdvReac Type Severity Reaction Status Date / Time enoxaparin [From Lovenox] Allergy Severe can not Verified 10/10/19 11:16 take d/t bleeding AVMs heparin Allergy Severe can not Verified 10/10/19 11:16 take d/t bleeding AVMs warfarin [From Coumadin] Allergy Severe can not Verified 10/10/19 11:16 take d/t bleeding AVMs levofloxacin [From Levaquin] Allergy Intermediate "tendons Verified 10/10/19 11:16 in back of leg/foot get hard" Home Medications Home Medications Medication Instructions Recorded Confirmed Type multivitamin 1 tab PO QAM 03/22/19 10/20/19 History pilocarpine HCl 2 % eye drops 1 drops OPB BID 03/22/19 10/20/19 History sertraline 100 mg tablet 100 mg PO QAM 03/22/19 10/20/19 History levothyroxine 150 mcg PO QAM 06/14/19 10/20/19 History magnesium oxide 400 mg PO QAM 07/30/19 10/20/19 History fluticasone furoate 200 1 puffs INH Q24H 09/21/19 10/20/19 History mcg-vilanterol 25 mcg/dose inhalation powder famotidine 20 mg tablet 20 mg PO DAILY #30 tab 09/22/19 10/20/19 Rx tramadol 25 mg PO Q12H PRN 10/10/19 10/20/19 History albuterol sulfate 1 puffs INH QID PRN 10/20/19 10/20/19 History etodolac 200 mg PO Q12H PRN 10/20/19 10/20/19 History Past Med/Surg History Medical History Abnormal weight loss (Chronic) Acid reflux (Chronic) Acquired deformity of pinna (Chronic) Almost no appetite (Chronic) Aneurysm of anterior cerebral artery (Chronic) Anxiety Arteriosclerotic coronary artery disease (Chronic) Chronic anticoagulation on 325mg aspirin daily Chronic back pain Chronic diarrhea COPD (chronic obstructive pulmonary disease) (Chronic) inhaler daily/prn, nebulizer prn Degenerative disc disease Difficulty swallowing DVT (deep venous thrombosis) (Chronic) hx of in left leg 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 Rodríguez Osteoarthritis Other nonspecific lymphadenitis (Chronic) PVD (peripheral vascular disease) Seizure last 40yrs ago, was on Dilantin--follows with Dr. 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 eye droops/won't turn up or down d/t nerve cutting in brain Surgical History [place] filter in place left History of angiography x25 cerebral angiogram History of appendectomy History of bilateral cataract extraction History of bilateral tubal ligation History of brain surgery x4 d/t AVM History of cardiac cath x2--last 08/2018 @ [facility] in [place], [place] no stent History of cholecystectomy History of colonoscopy History of partial thyroidectomy had done 1st d/t nodule and then later had a complete removal d/t goiter History of right-sided carotid endarterectomy History of surgery removal of large DVT from LLE History of surgery removal of right ear History of thyroidectomy, total d/t nodule and goiter History of tooth extraction all teeth Status post neck dissection AVMs Family History Mother CHF (congestive heart failure) Father Myocardial infarction Brother Family history of diabetes mellitus Other No family history of adverse response to anesthesia Social History Preferred Language: Turkmen Communication Ability: Effective Visual Impairment: Diminished 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: Hard of Hearing Lockstitch Sleeve Maker Required: No Beliefs That Will Affect Care: None marital status: singled Current Living Situation: Family Current Living Situation Comment: with son and daughter in law current occupational status: disabled Feels Safe at Home: Yes Smoking Status: Current every day smoker Tobacco Type: cigarettes ; Cigarettes Per Day: 3 ; Do You Dip or Chew Tobacco: No ; Second Hand Exposure: Yes (parents smoked/ smoked) ; Tobacco Cessation Education Requested by Patient: No Hx Alcohol Use: No Hx Substance Use: No Physical Exam Constitutional: + thin Eyes: PERRL, conjunctivae normal, anicteric sclerae Neck: trachea midline, no thyromegaly Respiratory: no respiratory distress and does not use accessory muscles Cardiovascular: Heart Sounds: + murmur Gastrointestinal (Abdomen): Inspection/Auscultation: abdomen normal to inspection Results & Data Vital Signs (Past 12 Hours) Vital Signs Temp Pulse Pulse Pulse Resp BP Pulse Ox 10/22/19 13:00 37.0 C 98 H 20 138/56 L 91 10/22/19 10:40 36.9 C 88 18 130/71 91 10/22/19 07:13 36.6 C 94 H 20 128/66 92 10/22/19 04:00 37.1 C 94 H 20 136/72 90 10/22/19 02:35 95 H Diagnostic Findings [place], [place] [phone] Ultrasound Report Patient: RENÉE SÁNCHEZ EAdmit Date: 10/20/19 MR#: [id number] Acct ID:[id number]: Date: 1945[facility] Zip: [place] [address] Age: 73Location: 2N Sex: F Room/Bed: [facility] Att Phy: Kofi Crow M.D.Diagnosis: CHEST PAIN, WEIGHT LOSS Mellisa Phy: Niyah Landaverde MDService Date: 10/21/19 Fam Phy:Interpreting Phy: Serafin Locke MD Admit Phy: Eddie Bach MD Ordering Phy: Eddie Bach MD cc: ~ US gallbladder CLINICAL HISTORY: ?choledocholithiasis, pancreatitis COMPARISON STUDY: CT of the abdomen and pelvis October 20, 2019. FINDINGS: This exam is compromised by respiratory motion. Moderate biliary ductal dilatation is noted status post cholecystectomy. The common bile duct measures 12 mm in caliber. No common bile duct calculi are identified. There is a possible 2 cm hypoechoic lesion within the pancreatic head. There may be associated pancreatic ductal dilatation. The pancreatic duct measures approximately 6 mm in caliber. Two hypoechoic hepatic lesions measure up to 1.9 cm. These were not evident on prior CT exams. There is no right hydronephrosis. IMPRESSION: 1. Possible 2 cm pancreatic head mass with pancreatic ductal dilatation. Pancreatic protocol CT with and without contrast is recommended. 2. Two hypoechoic hepatic lesions that measure up to 1.9 cm. These may reflect metastases and can be assessed on CT. 3. Moderate biliary ductal dilatation status post cholecystectomy. No common bile duct calculi identified. ACT 112: Positive. There are findings on this exam that require communication between the performing entity and the patient following Patient Test Result Information Act ([place] Act 112) guidelines. Code Status & VTE Plan VTE Prophylaxis Plan VTE Prophylaxis will be ordered: Yes
[2019-10-22] MEDS ORDERED: fentaNYL citrate 100 MCG/2 ML VIAL ONE ×2 (14:34→16:19)
[2019-10-22] MEDS ORDERED: PROPOFOL IV EMULSION 10 MG/ML 20 ML VIAL IV ONE (14:34)
[2019-10-22] MEDS ORDERED: LIDOCAINE HCL 2% 2 ML VIAL/AMP(20MG/ML) INFIL ONE (14:34)
[2019-10-22] MEDS ORDERED: PIPERACILLIN/TAZOBACTAM 3.375 GM in DEXTROSE 5% 100 ML IV SCH (15:00)
--- NOTE | 2019-10-22 15:13 | GI REPORT ---
Patient Name: Sofia Chávez Procedure Date: 10/22/2019 2:48 PM Date of : 1945 Admit Type: Inpatient Age: 73 Gender: Female Attending MD: Kait Kat DO Procedure: Upper GI endoscopy Providers: Kait Kat DO Referring MD: Ismael Spence MD, Kofi Crow M.d. Indications: Epigastric abdominal pain, Abnormal ultrasound of the GI tract Medicines: General Anesthesia Complications: No immediate complications. Estimated blood loss: Minimal. Estimated Blood Loss: Estimated blood loss was minimal. Procedure: Pre-Anesthesia Assessment: - Prior to the procedure, a History and Physical was performed, and patient medications, allergies and sensitivities were reviewed. The patient's tolerance of previous anesthesia was reviewed. - Patient identification and proposed procedure were verified prior to the procedure by the physician, the nurse and the print finishing worker. The procedure was verified in the procedure room. - The physical status of the patient was re-assessed after the procedure. - Pre-procedure physical examination revealed no contraindications to sedation. - ASA Grade Assessment: IV - A patient with severe systemic disease that is a constant threat to life. - After reviewing the risks and benefits, the patient was deemed in satisfactory condition to undergo the procedure. - The anesthesia plan was to use general anesthesia. - Immediately prior to administration of medications, the patient was re-assessed for adequacy to receive sedatives. - The heart rate, respiratory rate, oxygen saturations, blood pressure, adequacy of pulmonary ventilation, and response to care were monitored throughout the procedure. - The patient is unable to give consent secondary to the patient's altered mental status. The alternatives, risks and benefits of the procedure were discussed at length with the patient's daughter. The patient's proxy verbalized understanding of the risks as well as the alternatives and wished to proceed with the procedure. After obtaining informed consent, the endoscope was passed under direct vision. Throughout the procedure, the patient's blood pressure, pulse, and oxygen saturations were monitored continuously. The Endoscope was introduced through the mouth, and advanced to the third part of duodenum. The upper GI endoscopy was accomplished without difficulty. The patient tolerated the procedure well. Findings: Diffuse, white plaques were found in the upper third of the esophagus. Biopsies were taken with a cold forceps for histology. The pathology specimen was placed into Bottle B. Cells for cytology were obtained by brushing. Estimated blood loss was minimal. The Z-line was regular and was found 37 cm from the incisors. Diffuse mild inflammation characterized by congestion (edema), erythema and granularity was found in the entire examined stomach. Biopsies were taken with a cold forceps for histology. The pathology specimen was placed into Bottle A. The examined duodenum was normal. Impression: - Esophageal plaques were found, suspicious for candidiasis. Biopsied. Cells for cytology obtained. - Z-line regular, 37 cm from the incisors. - Gastritis. Biopsied. - Normal examined duodenum. Recommendation: - Perform an upper endoscopic ultrasound (UEUS) today. - Diflucan (fluconazole) 100 mg PO daily for 10 days. Kait Kat D.O. Kait Kat, 10/22/2019 3:12:54 PM This report has been signed electronically. Note Initiated On: 10/22/2019 2:48 PM Number of Addenda: 0 I attest to the content of the Intraoperative Record and orders documented therein, exceptions below {[id number]}
[2019-10-22] MEDS: INDOMETHACIN 50 MG SUPP PR ONE ×2 (15:20→15:29)
[2019-10-22] MEDS ORDERED: ONDANSETRON INJ 2 MG/ML 2 ML VIAL ONE (16:19)
--- NOTE | 2019-10-22 16:24 | Post Operative Brief Note ---
Immediate Post Op Note v1 Date of Surgery October 22, 2019 Pre & Post Diagnosis Operation Date: 10/22/19 08:10 Pre-Op Diagnosis: pancreatic mass Post-Op Diagnosis: pancreatic mass, portal lymphadenopathy, gastritis, esophageal candidiasis I identified the patient and participated in the time-out.: Yes Procedure Operation Date: 10/22/19 08:10 Actual Procedures p Esophagogastroduodenoscopy(Not Applicable) - Kait Kat s Endoscopic Ultrasonography Upper(Not Applicable) - Kait Kat Surgeon Kait Kat Hall Coordinator none Estimated Blood Loss 0 Findings Consistent with Post-Op Diagnosis
--- NOTE | 2019-10-22 16:26 | Communication Note ---
Date of Service: October 22, 2019 The patient underwent upper endoscopy and endoscopic ultrasound this afternoon. Findings Gastritis Plaques consistent with esophageal candidiasis 24 mm head of pancreas mass FNA performed 16 mm node of the boo hepatis, FNA performed Recommendations Clear liquid diet today Advance diet as tolerated tomorrow Obtain a CA-19-9 Outpatient medical oncology and surgical oncology referral 10 days of Diflucan 100 mg daily for treatment of esophageal candidiasis
[2019-10-22] MEDS ORDERED: FLUCONAZOLE 100 MG TAB PO SCH (16:45)
[2019-10-22] MEDS ORDERED: METOPROLOL TARTRATE 1 MG/ML VIAL IV ONE (17:08)
[2019-10-22] MEDS ORDERED: METOPROLOL TARTRATE 1 MG/ML VIAL IV STA (17:08)
--- NOTE | 2019-10-22 17:31 | Anesthesiology Progress Note ---
Date of Service October 22, 2019 Anesthesia Post Procedure Vital Signs Vital Signs: Temp Pulse Pulse Pulse Resp BP BP 10/22/19 17:15 90 15 10/22/19 17:11 102 H 150/69 H 10/22/19 17:05 95 H 18 10/22/19 16:55 97 H 17 10/22/19 16:45 92 H 19 10/22/19 16:37 37.2 C 92 H 12 10/22/19 13:00 37.0 C 98 H 20 138/56 L 10/22/19 10:40 36.9 C 88 18 130/71 10/22/19 07:13 36.6 C 94 H 20 128/66 10/22/19 04:00 37.1 C 94 H 20 136/72 10/22/19 02:35 95 H 10/21/19 23:00 37 C 88 20 115/43 L 10/21/19 21:15 36.5 C 99 H 22 BP Pulse Ox 10/22/19 17:15 136/66 93 10/22/19 17:11 10/22/19 17:05 117/56 L 94 10/22/19 16:55 137/64 94 10/22/19 16:45 138/65 94 10/22/19 16:37 140/61 98 10/22/19 13:00 91 10/22/19 10:40 91 10/22/19 07:13 92 10/22/19 04:00 90 10/22/19 02:35 10/21/19 23:00 91 10/21/19 21:15 144/69 H 90 Pain Intensity Chest: Pain Intensity: 10 Transfer of Care Handoff Completed per policy Notes Mental Status: alert / awake / arousable (same mental status as before, oriented to self only) Nausea / Vomiting: adequately controlled Pain: adequately controlled Airway Patency, RR, SpO2: stable & adequate BP & HR: stable & adequate Hydration State: stable & adequate Anesthetic Complications: no major complications apparent Notes: EKG noted. IV metoprolol well tolerated with HR in low 80's with BP 137/87. Pt much more comfortable. Did voidx1 in PACU with some relief of pain. Now comfortably resting. Prior anes team spoke with hospitalist. Will send to [facility] [place].
[2019-10-22] MEDS ORDERED: FLUCONAZOLE 10 MG/ML PO ONE (17:45)
--- NOTE | 2019-10-22 19:50 | XRay Report ---
LEFT FOOT 3 VIEWS CLINICAL HISTORY: Left foot pain. FINDINGS: 3 views of the left foot are obtained. No prior studies are available for comparison at the time of dictation. The skeletal structures are osteopenic. No fracture is seen. There is no bony ero marlen or peristalsis to suggest osteomyelitis. Chronic deformity is noted involving the fifth proximal phalanx. Minimal osteoarthritic change is seen at the first metatarsophalangeal joint. Minimal osteo arthritic change is also seen at the tarsometatarsal joints. There are scattered dermal calcification s. Mild soft tissue edema is noted in the lateral forefoot. IMPRESSION: Mild soft tissue edema is noted in the forefoot. No acute bony abnormality is identified. Electronically signed by: Marcello Jordan M.D. 10/22/2019 7:48 PM
[2019-10-22] MEDS: PIPERACILLIN/TAZOBACTAM 3.375 GM in DEXTROSE 5% 100 ML IV SCH (21:24)
--- NOTE | 2019-10-22 21:24 | Hospitalist Progress Note ---
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 She was recently admitted from 10/09 to 10/10 for chest pain which she felt was different in character from her current symptoms. She has new compression fractures with edema appreciated on CT. Right upper quadrant abdominal pain with elevated alk phos and lipase Suspicious for pancreatitis, possible choledocholithiasis and pancreatic mas -Lipase has improved. -Awaiting EUS later today Continue N.p.o. for now. MRCP is not able to be completed as patient has hardware that is not compatibile with an MRI machine. LR 200 cc/h Pain control with hydromorphine 0.5/1.0 mg scaled every 3 hours Continue Pepcid 20 mg daily Compression fracture with recent weight loss T11-L2 compression fracture with surrounding edema. Patient tender on spinal palpation No lesions or masses appreciated, patient has had some chills in the preceding weeks and 18 pounds of weight loss Her bony tenderness, compression fractures, weight loss, and appetite loss are concerning for underlying undiagnosed malignancy. MRCP as above, consider additional work-up if etiology does not declare itself during current evaluation - TSHis at goal. History of NV versus heart failure with reduced ejection fraction Patient is not a good historian of her cardiac history. Etiology unclear, hx notes CAD with possible NV although additional notations suggests she actually had Takutsubo's stress cardiomyopathy with in [place] - TTE ordered given high fluid load with pancreatitis tx - Troponin negative - EKG without acute ST/T wave changes - Chest pain reproducible with palpation and movement, low suspicion for ACS - Given history will admit to med-tele and monitor overnight COPD Continue Brio Ellipta - Duonebs PRN Hypothyroidism Continue Synthroid 150 mcg daily Anxiety/depression Continue sertraline 100 mg daily left foot pain: Concern over possible infection. Not warm to touch. but tender to palpation. will obtain x ray, inflammatory markers. IVFM: LR 200cc/hr as above Diet: NPO DVT Prophylaxis: SCDs. Anticoagulation contraindicated 2/2 AVMs. Code Status: Conditional Code (2) Elevated alkaline phosphatase level: (3) AVM (arteriovenous malformation): (4) COPD (chronic obstructive pulmonary disease): (5) Abnormal weight loss: (6) Sensorineural hearing loss of both ears: (7) Arteriosclerotic coronary artery disease: (8) Severe protein-calorie malnutrition: currently NPO cONCERN OVER PANCREATIC MASS. Will get an EUS likely during this hospital stay. Admission and Anticipated Discharge Date Admission Date: October 20, 2019 Subjective Patient is having pain in her left foot. She reports no new symptoms. Patient reports she has no further complaints at this time.. Review of Systems Review of Systems: All systems reviewed & are unremarkable except as noted in HPI & below Physical Exam Physical Exam: General: A&Ox3. NAD. Cachectic. Appears ill. HEENT: Right ear abnormality 2/2 postsurgical change. Mucous membranes dry. Oropharynx without lesions. Pulm: improved breath sounds Chest rise symmetrical. Cardiac: RRR, -mrg. Radial pulses intact and symmetrical. Abdominal: Tender to palpation in right upper and right lower quadrant. Abdomen soft, without rigidity. No left quadrant tenderness or rebound. Bowel sounds intact. Extremity: Ankle plantarflexion/dorsiflexion intact and symmetrical bilaterally. Web Content Executive strength intact bilaterally. Moving all extremities equally. Spine: Focal tenderness at approximately T10-L3 to mid spinal palpation without radicular symptoms. No paraspinal tenderness. Left foot: dry scab on sole near the heel. No drainage, not warm to touch. Tender to palpation, Results & Data Results & Data ([facility]) Vital Signs (Past 12 Hours) Vital Signs Temp Pulse Pulse Pulse Resp BP BP 10/22/19 21:10 36.9 C 85 18 10/22/19 20:10 37.0 C 89 18 10/22/19 19:10 36.9 C 88 18 10/22/19 18:40 36.9 C 92 H 19 10/22/19 18:10 37 C 16 10/22/19 18:00 88 14 10/22/19 17:45 84 13 10/22/19 17:35 37.2 C 82 17 10/22/19 17:25 79 19 10/22/19 17:15 90 15 10/22/19 17:11 102 H 150/69 H 10/22/19 17:05 95 H 18 10/22/19 16:55 97 H 17 10/22/19 16:45 92 H 19 10/22/19 16:37 37.2 C 92 H 12 10/22/19 13:00 37.0 C 98 H 20 138/56 L 10/22/19 10:40 36.9 C 88 18 130/71 BP Pulse Ox 10/22/19 21:10 131/67 99 10/22/19 20:10 140/70 99 10/22/19 19:10 138/67 100 10/22/19 18:40 131/68 95 10/22/19 18:10 142/69 H 100 10/22/19 18:00 129/44 L 94 10/22/19 17:45 116/41 L 96 10/22/19 17:35 156/85 H 94 10/22/19 17:25 137/87 96 10/22/19 17:15 136/66 93 10/22/19 17:11 10/22/19 17:05 117/56 L 94 10/22/19 16:55 137/64 94 10/22/19 16:45 138/65 94 10/22/19 16:37 140/61 98 10/22/19 13:00 91 10/22/19 10:40 91 PG Care Time/CCT Total # of Minutes Spent Total Time Spent with Patient: Total time spent is greater than 50% in coordination of care (as documented) at patient's floor/unit and/or counseling patient: Coding Level of Care Code 46649 Subseq Hosp Care Lvl 3 Diagnoses Acute pancreatitis K85.90 Acute pancreatitis complication: no infection or necrosis Pancreatitis type: unspecified pancreatitis type Elevated alkaline phosphatase level R74.8 AVM (arteriovenous malformation) Q27.30 COPD (chronic obstructive pulmonary disease) J44.9 Abnormal weight loss R63.4 Sensorineural hearing loss of both ears H90.3 Arteriosclerotic coronary artery disease I25.10 Severe protein-calorie malnutrition E43 Time Spent (min) 35 (1) Acute pancreatitis Acute pancreatitis complication: no infection or necrosis Pancreatitis type: unspecified pancreatitis type Qualified Code(s): K85.90 - Acute pancreatitis without necrosis or infection, unspecified
[2019-10-22] MEDS: SODIUM CHLORIDE 0.9% 1000ML 1,000 ML IV SCH (23:00)
[2019-10-23] MEDS: HYDROmorphone INJ 0.5 MG/0.5 ML SYR IV PRN ×4 (04:33→20:42)
[2019-10-23] MEDS: PIPERACILLIN/TAZOBACTAM 3.375 GM in DEXTROSE 5% 100 ML IV SCH ×3 (04:48→20:43)
[2019-10-23] MEDS: LEVOTHYROXINE SODIUM 150 MCG TABLET PO SCH (06:24)
[2019-10-23] MEDS: LACTATED RINGER'S 1,000 ML IV SCH (08:38)
[2019-10-23] MEDS: SERTRALINE HCL 100 MG TABLET PO SCH (08:39)
[2019-10-23] MEDS: FLUTICASONE/VILANTEROL 200/25MCG 14 PUFFS/INHALER INH SCH (08:39)
[2019-10-23] MEDS: MULTIVITAMIN TAB PO SCH (08:39)
[2019-10-23] MEDS: FAMOTIDINE 20 MG TAB PO SCH (08:39)
[2019-10-23] MEDS: FLUCONAZOLE 200 MG/5 ML UDP PO SCH (08:40)
[2019-10-23] MEDS: PILOCARPINE HCL 2% OP SOLN 15 ML BTL OPB SCH ×2 (08:40→20:44)
[2019-10-23] MEDS: MAGNESIUM OXIDE 400 MG TAB PO SCH (08:41)
[2019-10-23 09:34] LABS: Basophils # (auto) 0.05 K/uL (0-0.2); Basophils % (auto) 0.6 %; Eosinophils % (auto) 2.3 %; Hematocrit (blood only) 33.5 % (37-47); Hemoglobin 11.7 g/dL (12.0-16.0); Immature Granulocytes # (auto) 0.04 K/uL (0.00-0.02); Immature Granulocytes % (auto) 0.5 %; Lymphocytes # (auto) 1.06 K/uL (1.2-3.4); Mean Corpuscular Hemoglobin 30.3 pg (25-34); Mean Corpuscular Hgb Conc 34.9 g/dL (32-36); Mean Corpuscular Volume 86.8 fL (80-100); Mean Platelet Volume 9.5 fL (7.4-10.4); Monocytes # (auto) 1.08 K/uL (0.11-0.59); Monocytes % (auto) 12.2 %; Neutrophils % (auto) 72.4 %; Platelet Count 249 K/uL (130-400); RDW Standard Deviation 47.4 fL (36.4-46.3); Red Blood Count 3.86 M/uL (4.2-5.4); White Blood Count 8.83 K/uL (4.8-10.8)
[2019-10-23 10:11] LABS: BUN Creatinine Ratio 11.3 (10-20); Calcium 8.4 mg/dl (8.5-10.1); Creatinine Clr Calc Pharmacy 80.8 ml/min; Est GFR (Non-African American) 94.1
[2019-10-23] MEDS: SODIUM CHLORIDE 0.9% 1000ML 1,000 ML IV SCH (12:02)
[2019-10-23] MEDS: TRAMADOL HCL 50 MG TABLET PO PRN ×2 (12:41→16:45)
--- NOTE | 2019-10-23 12:46 | Electrocardiogram Report ---
Test Reason : Blood Pressure : / mmHG Vent. Rate : 093 BPM Atrial Rate : 093 BPM P-R Int : 122 ms QRS Dur : 074 ms QT Int : 358 ms P-R-T Axes : 072 -55 052 degrees QTc Int : 445 ms Sinus rhythm with frequent Premature ventricular complexes Left axis deviation Low voltage QRS Septal infarct , age undetermined T wave abnormality, consider anterior ischemia Abnormal ECG When compared with ECG of 20-OCT-2019 18:35, Significant changes have occurred Confirmed by Les Damon ([id number]) on 10/23/2019 12:46:24 PM Referred By: REFERRED SELF Confirmed By:Les Damon
--- NOTE | 2019-10-23 12:49 | Electrocardiogram Report ---
Test Reason : Blood Pressure : / mmHG Vent. Rate : 093 BPM Atrial Rate : 093 BPM P-R Int : 126 ms QRS Dur : 070 ms QT Int : 314 ms P-R-T Axes : 004 105 023 degrees QTc Int : 390 ms Normal sinus rhythm Rightward axis T wave abnormality, consider anterior ischemia Abnormal ECG When compared with ECG of 22-OCT-2019 16:56, (unconfirmed) Premature ventricular complexes are no longer Present QRS axis Shifted right Confirmed by Les Damon ([id number]) on 10/23/2019 12:48:58 PM Referred By: REFERRED SELF Confirmed By:Les Damon
--- NOTE | 2019-10-23 20:21 | Hospitalist Progress Note ---
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 She was recently admitted from 10/09 to 10/10 for chest pain which she felt was different in character from her current symptoms. She has new compression fractures with edema appreciated on CT. Right upper quadrant abdominal pain with elevated alk phos and lipase Suspicious for pancreatitis, possible choledocholithiasis and pancreatic mas -Lipase has improved. -Endoscopic ultrasound confirms mass in pancreas. -Restarted diet. -Will set up outpatient followup with oncologist. -updated family (daughter in law) Pain control with hydromorphine 0.5/1.0 mg scaled every 3 hours Continue Pepcid 20 mg daily Compression fracture with recent weight loss T11-L2 compression fracture with surrounding edema. Patient tender on spinal palpation No lesions or masses appreciated, patient has had some chills in the preceding weeks and 18 pounds of weight loss Her bony tenderness, compression fractures, weight loss, and appetite loss are concerning for underlying undiagnosed malignancy. MRCP as above, consider additional work-up if etiology does not declare itself during current evaluation - TSHis at goal. History of AK versus heart failure with reduced ejection fraction Patient is not a good historian of her cardiac history. Etiology unclear, hx notes CAD with possible AK although additional notations suggests she actually had Takutsubo's stress cardiomyopathy with in [place] - TTE ordered given high fluid load with pancreatitis tx - Troponin negative - EKG without acute ST/T wave changes - Chest pain reproducible with palpation and movement, low suspicion for ACS - Given history will admit to med-tele and monitor overnight COPD Continue Brio Ellipta - Duonebs PRN Hypothyroidism Continue Synthroid 150 mcg daily Anxiety/depression Continue sertraline 100 mg daily left foot pain: Concern over possible infection. Not warm to touch. but tender to palpation. will obtain x ray, inflammatory markers. DVT Prophylaxis: SCDs. Anticoagulation contraindicated 2/2 AVMs. Code Status: Conditional Code (2) Elevated alkaline phosphatase level: (3) AVM (arteriovenous malformation): (4) COPD (chronic obstructive pulmonary disease): (5) Abnormal weight loss: (6) Sensorineural hearing loss of both ears: (7) Arteriosclerotic coronary artery disease: (8) Severe protein-calorie malnutrition: currently NPO cONCERN OVER PANCREATIC MASS. Will get an EUS likely during this hospital stay. Admission and Anticipated Discharge Date Admission Date: October 20, 2019 Subjective Patient continues to be confused. She reports she is still in pain, but it appears to be better controlled. Review of Systems Review of Systems: All systems reviewed & are unremarkable except as noted in HPI & below Physical Exam Physical Exam: General: A&Ox3. NAD. Cachectic. Appears ill. HEENT: Right ear abnormality 2/2 postsurgical change. Oropharynx without lesions. Pulm: improved breath sounds Chest rise symmetrical. Cardiac: RRR, -mrg. Radial pulses intact and symmetrical. Abdominal: Tender to palpation in right upper and right lower quadrant. Abdomen soft, without rigidity. No left quadrant tenderness or rebound. Bowel sounds intact. Extremity: Ankle plantarflexion/dorsiflexion intact and symmetrical bilaterally. Nurse Sane strength intact bilaterally. Moving all extremities equally. Spine: Focal tenderness at approximately T10-L3 to mid spinal palpation without radicular symptoms. No paraspinal tenderness. Left foot: dry scab on sole near the heel. No drainage, not warm to touch. Tender to palpation, Results & Data Results & Data ([facility]) Vital Signs (Past 12 Hours) Vital Signs Temp Pulse Pulse Pulse Resp BP Pulse Ox 10/23/19 19:27 37.0 C 91 H 16 164/66 H 97 10/23/19 15:53 84 10/23/19 14:59 36.9 C 83 16 137/62 97 10/23/19 10:49 36.8 C 82 18 135/63 97 PG Care Time/CCT Total # of Minutes Spent Total Time Spent with Patient: Total time spent is greater than 50% in coordination of care (as documented) at patient's floor/unit and/or counseling patient: Coding Level of Care Code 54403 Subseq Hosp Care Lvl 3 Diagnoses Acute pancreatitis K85.90 Acute pancreatitis complication: no infection or necrosis Pancreatitis type: unspecified pancreatitis type Elevated alkaline phosphatase level R74.8 AVM (arteriovenous malformation) Q27.30 COPD (chronic obstructive pulmonary disease) J44.9 Abnormal weight loss R63.4 Sensorineural hearing loss of both ears H90.3 Arteriosclerotic coronary artery disease I25.10 Severe protein-calorie malnutrition E43 Time Spent (min) 35 (1) Acute pancreatitis Acute pancreatitis complication: no infection or necrosis Pancreatitis type: unspecified pancreatitis type Qualified Code(s): K85.90 - Acute pancreatitis without necrosis or infection, unspecified
[2019-10-23] MEDS ORDERED: HALOPERIDOL LACTATE 5 MG/ML 1 ML VIAL IM PRN (20:32)
[2019-10-24] MEDS: SODIUM CHLORIDE 0.9% 1000ML 1,000 ML IV SCH (00:48)
[2019-10-24] MEDS: PIPERACILLIN/TAZOBACTAM 3.375 GM in DEXTROSE 5% 100 ML IV SCH ×3 (04:10→20:43)
[2019-10-24] MEDS: HYDROmorphone INJ 0.5 MG/0.5 ML SYR IV PRN ×4 (04:38→18:13)
[2019-10-24] MEDS: LEVOTHYROXINE SODIUM 150 MCG TABLET PO SCH (06:01)
[2019-10-24] MEDS: ALBUT/IPRATROP 3MG/0.5MG NEB 3 ML VIAL NEB PRN (06:07)
[2019-10-24] MEDS: TRAMADOL HCL 50 MG TABLET PO PRN ×2 (08:53→19:22)
[2019-10-24] MEDS: PILOCARPINE HCL 2% OP SOLN 15 ML BTL OPB SCH ×2 (08:54→20:44)
[2019-10-24] MEDS: FAMOTIDINE 20 MG TAB PO SCH (08:54)
[2019-10-24] MEDS: SERTRALINE HCL 100 MG TABLET PO SCH (08:54)
[2019-10-24] MEDS: FLUCONAZOLE 200 MG/5 ML UDP PO SCH (08:54)
[2019-10-24] MEDS: MULTIVITAMIN TAB PO SCH (08:54)
[2019-10-24] MEDS: MAGNESIUM OXIDE 400 MG TAB PO SCH (08:54)
[2019-10-24] MEDS: FLUTICASONE/VILANTEROL 200/25MCG 14 PUFFS/INHALER INH SCH (08:55)
[2019-10-24 10:12] LABS: Basophils # (auto) 0.05 K/uL (0-0.2); Basophils % (auto) 0.7 %; Eosinophils # (auto) 0.25 K/uL (0-0.5); Eosinophils % (auto) 3.4 %; Hematocrit (blood only) 30.7 % (37-47); Hemoglobin 10.8 g/dL (12.0-16.0); Immature Granulocytes # (auto) 0.04 K/uL (0.00-0.02); Immature Granulocytes % (auto) 0.5 %; Lymphocytes # (auto) 0.87 K/uL (1.2-3.4); Mean Corpuscular Hemoglobin 30.8 pg (25-34); Mean Corpuscular Hgb Conc 35.2 g/dL (32-36); Mean Corpuscular Volume 87.5 fL (80-100); Mean Platelet Volume 9.4 fL (7.4-10.4); Monocytes # (auto) 0.98 K/uL (0.11-0.59); Monocytes % (auto) 13.5 %; Neutrophils # (auto) 5.09 K/uL (1.4-6.5); Neutrophils % (auto) 69.9 %; Platelet Count 166 K/uL (130-400); RDW Coefficient of Variation 14.9 % (11.5-14.5); RDW Standard Deviation 47.6 fL (36.4-46.3); Red Blood Count 3.51 M/uL (4.2-5.4); White Blood Count 7.28 K/uL (4.8-10.8)
[2019-10-24 10:31] LABS: BUN Creatinine Ratio 7.3 (10-20); Calcium 8.4 mg/dl (8.5-10.1); Creatinine Clr Calc Pharmacy 89.4 ml/min; Est GFR (African American) 111.2; Potassium 3.8 mmol/L (3.5-5.1)
--- NOTE | 2019-10-24 11:12 | XRay Report ---
XR chest 1V portable CLINICAL HISTORY: hypoxia dyspnea COMPARISON STUDY: 10/20/2019 FINDINGS: Interval development of bibasilar parenchymal infiltrative change. Small bilateral pleural effusions. Mid and upper lungs are clear. Mild prominence of the central pulmonary vasculature. IMPRESSION: Bilateral bibasilar parenchymal infiltrates. Small bilateral pleural effusions. ACT 112: Negative or not required by law. The above report was generated using voice recognition software. It may contain grammatical, syntax or spelling errors. Electronically signed by: Rip Miller M.D. 10/24/2019 11:11 AM
[2019-10-24] MEDS ORDERED: FUROSEMIDE 40 MG in SYRINGE 0 ML IV ONE (15:35)
[2019-10-24] MEDS: POTASSIUM CHLORIDE 20 MEQ TABCR PO SCH (20:44)
--- NOTE | 2019-10-24 22:32 | Hospitalist Progress Note ---
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 She was recently admitted from 10/09 to 10/10 for chest pain which she felt was different in character from her current symptoms. She has new compression fractures with edema appreciated on CT. Right upper quadrant abdominal pain with elevated alk phos and lipase Appears to be from pancreatic mass. -Lipase has improved, no longer having pancreatitis. -Endoscopic ultrasound confirms mass in pancreas. -Restarted diet. -Will set up outpatient followup with oncologist. -updated family (daughter in law) Pain control with hydromorphine 0.5/1.0 mg scaled every 3 hours -will need to transition to oral or an patch; fentanyl may be an option. -However concern over delirum associated with opiates. -may do a trial of lidocaine in AM. Continue Pepcid 20 mg daily Compression fracture with recent weight loss T11-L2 compression fracture with surrounding edema. Patient tender on spinal palpation No lesions or masses appreciated, patient has had some chills in the preceding weeks and 18 pounds of weight loss Her bony tenderness, compression fractures, weight loss, and appetite loss are concerning for underlying undiagnosed malignancy. MRCP as above, consider additional work-up if etiology does not declare itself during current evaluation - TSHis at goal. History of MA versus heart failure with reduced ejection fraction Patient is not a good historian of her cardiac history. Etiology unclear, hx notes CAD with possible MA although additional notations suggests she actually had Takutsubo's stress cardiomyopathy with in [place] - TTE ordered given high fluid load with pancreatitis tx - Troponin negative - EKG without acute ST/T wave changes - Chest pain reproducible with palpation and movement, low suspicion for ACS - Given history will admit to med-tele and monitor overnight COPD Continue Brio Ellipta - Duonebs PRN Hypothyroidism Continue Synthroid 150 mcg daily Anxiety/depression Continue sertraline 100 mg daily -esophageal candidiasis Will continue on fluconazole. left foot pain: h/o of tinea pedis. on oral fluconazole for esophageal candidiasis Concern over possible infection. Not warm to touch. but tender to palpation. will obtain x ray, inflammatory markers. DVT Prophylaxis: SCDs. Anticoagulation contraindicated 2/2 AVMs. Code Status: Conditional Code (2) Elevated alkaline phosphatase level: (3) AVM (arteriovenous malformation): (4) COPD (chronic obstructive pulmonary disease): (5) Abnormal weight loss: (6) Sensorineural hearing loss of both ears: (7) Arteriosclerotic coronary artery disease: (8) Severe protein-calorie malnutrition: currently NPO cONCERN OVER PANCREATIC MASS. Will get an EUS likely during this hospital stay. Admission and Anticipated Discharge Date Admission Date: October 20, 2019 Subjective Family is updated. Patient is a poor historian. Her main complaint is chest pain that worsens with palpation. Review of Systems Review of Systems: All systems reviewed & are unremarkable except as noted in HPI & below Physical Exam Physical Exam: General: A&Ox3 (not oriented to time). knows she is in the hospital, knows she has pancreatic mass, knows her name. NAD. Cachectic. Appears ill. HEENT: Right ear abnormality 2/2 postsurgical change. Oropharynx without lesions. Pulm: improved breath sounds Chest rise symmetrical. Cardiac: RRR, -mrg. Radial pulses intact and symmetrical. Abdominal: Tender to palpation in right upper and right lower quadrant. Abdomen soft, without rigidity. No left quadrant tenderness or rebound. Bowel sounds intact. Extremity: Ankle plantarflexion/dorsiflexion intact and symmetrical bilaterally. Sales Service Manager strength intact bilaterally. Moving all extremities equally. Spine: Focal tenderness at approximately T10-L3 to mid spinal palpation without radicular symptoms. No paraspinal tenderness. Left foot: dry scab on sole near the heel. No drainage, not warm to touch. Tender to palpation Results & Data Results & Data ([facility]) Vital Signs (Past 12 Hours) Vital Signs Temp Pulse Pulse Resp BP BP Pulse Ox 10/24/19 18:52 37 C 77 18 136/64 90 10/24/19 14:52 37.2 C 75 17 132/64 90 10/24/19 14:15 99 H 10/24/19 11:06 36.4 C L 72 18 122/61 95 PG Care Time/CCT Total # of Minutes Spent Total Time Spent with Patient: Total time spent is greater than 50% in coordination of care (as documented) at patient's floor/unit and/or counseling patient: Coding Level of Care Code 39670 Subseq Hosp Care Lvl 3 Diagnoses Acute pancreatitis K85.90 Acute pancreatitis complication: no infection or necrosis Pancreatitis type: unspecified pancreatitis type Elevated alkaline phosphatase level R74.8 AVM (arteriovenous malformation) Q27.30 COPD (chronic obstructive pulmonary disease) J44.9 Abnormal weight loss R63.4 Sensorineural hearing loss of both ears H90.3 Arteriosclerotic coronary artery disease I25.10 Severe protein-calorie malnutrition E43 Time Spent (min) 35 (1) Acute pancreatitis Acute pancreatitis complication: no infection or necrosis Pancreatitis type: unspecified pancreatitis type Qualified Code(s): K85.90 - Acute pancreatitis without necrosis or infection, unspecified
[2019-10-25] MEDS: HYDROmorphone INJ 0.5 MG/0.5 ML SYR IV PRN ×2 (00:15→13:11)
[2019-10-25] MEDS: ALBUTEROL SULFATE INH PRN ×2 (03:53→22:16)
[2019-10-25] MEDS: PIPERACILLIN/TAZOBACTAM 3.375 GM in DEXTROSE 5% 100 ML IV SCH ×2 (03:54→12:18)
[2019-10-25] MEDS: TRAMADOL HCL 50 MG TABLET PO PRN ×2 (04:49→08:49)
[2019-10-25] MEDS: LEVOTHYROXINE SODIUM 150 MCG TABLET PO SCH (06:05)
[2019-10-25] MEDS: SERTRALINE HCL 100 MG TABLET PO SCH (08:33)
[2019-10-25] MEDS: FAMOTIDINE 20 MG TAB PO SCH (08:33)
[2019-10-25] MEDS: POTASSIUM CHLORIDE 20 MEQ TABCR PO SCH ×3 (08:33→20:51)
[2019-10-25] MEDS: MULTIVITAMIN TAB PO SCH (08:33)
[2019-10-25] MEDS: PILOCARPINE HCL 2% OP SOLN 15 ML BTL OPB SCH ×2 (08:34→20:52)
[2019-10-25] MEDS: MAGNESIUM OXIDE 400 MG TAB PO SCH (08:34)
[2019-10-25] MEDS: FLUTICASONE/VILANTEROL 200/25MCG 14 PUFFS/INHALER INH SCH (08:35)
[2019-10-25] MEDS: FLUCONAZOLE 200 MG/5 ML UDP PO SCH (08:35)
[2019-10-25] MEDS: POLYETHYLENE (MIRALAX) 17 GM PACK PO SCH ×3 (08:48→20:51)
--- NOTE | 2019-10-25 10:06 | XRay Report ---
XR KUB/Abdomen 1 view CLINICAL HISTORY: constipation COMPARISON STUDY: CT scan dated 10/22/2019 FINDINGS: There is a lumbar levoscoliosis. There are surgical clips within the right upper quadrant c onsistent with a prior cholecystectomy. There are dense atheromatous calcifications within the aorta. There is a left common iliac artery stent. There is no pathologic bowel dilatation. There is no evid ence for excessive colonic stool. IMPRESSION: Nonobstructive bowel gas pattern. ACT 112: Negative or not required by law. Electronically signed by: Alexey Florentino M.D. 10/25/2019 10:04 AM
[2019-10-25 10:07] LABS: Nucleated RBC # (auto) 0.02 K/uL (0-0); Nucleated RBC % (auto) 0.3 %
[2019-10-25] MEDS: LIDOCAINE 5% 1 PATCH TD SCH (10:10)
[2019-10-25 10:16] LABS: Hematocrit (blood only) 33.1 % (37-47); Hemoglobin 11.7 g/dL (12.0-16.0); Mean Corpuscular Hemoglobin 30.8 pg (25-34); Mean Corpuscular Hgb Conc 35.3 g/dL (32-36); Mean Corpuscular Volume 87.1 fL (80-100); Mean Platelet Volume 9.1 fL (7.4-10.4); Platelet Count 263 K/uL (130-400); RDW Coefficient of Variation 15.2 % (11.5-14.5); White Blood Count 6.43 K/uL (4.8-10.8)
[2019-10-25 10:25] LABS: BUN Creatinine Ratio 6.8 (10-20); Calcium 9.3 mg/dl (8.5-10.1); Creatinine Clr Calc Pharmacy 72.6 ml/min; Est GFR (African American) 103.9; Est GFR (Non-African American) 89.7; Potassium 3.7 mmol/L (3.5-5.1)
[2019-10-25] MEDS: ALBUT/IPRATROP 3MG/0.5MG NEB 3 ML VIAL NEB PRN (11:16)
[2019-10-25] MEDS ORDERED: fentaNYL 12 MCG/HR TDSY TD SCH (13:30)
--- NOTE | 2019-10-25 13:44 | Palliative Care Consultation ---
Date of Consultation October 25, 2019 Assessment & Plan (1) Goals of care, counseling/discussion: -73 year old female patient with PMH multiple cranial AVMs s/p surgical interventions, OZZY cerebral aneurysm, CAD, sensorineural hearing loss, COPD, DVT, and heart failure, presented to the ED with c/o chest pain for four days. Also with RUQ pain. Patient also endorsed 18lb weight loss recently. Lipase elevated. Abd/pelvis CT obtained which showed pancreatic stranding, new compression fractures of T11, T12 and L2 with perivertebral edema. Treated for pancreatitis. Troponin negative, not thought to be cardiac related chest pain. Was to get MRCP, but unable to obtain due to previous AVM clips incompatible with MRI. Abd US ordered which showed pancreatic head mass as well as two hepatic lesions that could represent metastases. GI then ordered a stat CT abd/pelvis w/wo contrast-- pancreatic head mass and hepatic lesions again noted. Patient had upper endoscopy and EUS on 10/21, FNA biopsies obtained from 24mm pancreatic lesion and 16mm hepatic lesion. CA19-9 obtained and elevated at 349. Pancreatitis and lipase improved, patient continues to have pain, however. Has used three doses of Dilaudid 0.5mg IV in last 24 hours, as well as Tramadol 50mg x3 doses. Patient will need outpatient heme/onc and surgical/onc follow ups. Palliative care is also consulted for goals of care and pain management. -Patient seen by palliative MD this afternoon. Patient is oriented. States she is has constant severe pain in epigastric area-- likely the area of pancreatic head mass. Forgets to ask for pain medication. -Recommend starting fentanyl patch at 12mcg/hr. Stop Tramadol. Continue Dilaudid 0.5mg IV Q3h PRN breakthrough pain. Will likely need outpatient palliative follow up. -Would be reasonable to engage heme/onc during this hospital stay if they are able to. Patient has lost weight, is somewhat frail. While pathology is not back yet, most likely dealing with stage IV pancreatic cancer which of course has a terrible prognosis. If we are able to get heme/onc input during this hospitali zation, palliative care can certainly discuss further with patient/family about goals of care. If not, can be done as outpatient. -We will follow during hospitalization. (2) Pancreatic mass: (3) Acute pancreatitis: Acute pancreatitis complication: no infection or necrosis Pancreatitis type: unspecified pancreatitis type Qualified Code(s): K85.90 - Acute pancreatitis without necrosis or infection, unspecified (4) Abdominal pain: Supervising Physician Co-Signing Physician Notes Chart reviewed, patient seen and examined. Collaborated with KEVIN Reynolds as well as attending physician Dr. Crow Patient awake and alert, patient states she has significant epigastric pain-has not requested a PRN medication. Nursing notified. Patient states her pain is constant-increases with movement or cough. Patient with COPD-not on O2 at home, has a loose cough but is unable to mobilize secretions due to worsening pain with deep breath or cough. Pain medication requested. ROS: Patient denies fever or chills, positive for increased shortness of breath, cough, and abdominal pain. Patient also reports a 20 pound weight loss over a period of 6 weeks. PE: Patient awake and alert, able to give a detailed history. HEENT: EOMI, hearing within normal limits Respirations: Diminished breath sounds, upper airway rhonchi, loose cough CV: Regular weight, no edema Abdomen: Distended, tender upper abdomen, nontender lower quadrants. Extremities: Full range of motion, cachectic Neuro: Alert and oriented-does rely on [id number], Malaika, to assist with medical decision making. Agree with above note, assessment and plan as per KEVIN Reynolds. Discussed with attending physician starting a fentanyl patch and getting patient's pain under control prior to discharge. History of Present Illness Attending Physician: Kofi Crow History of Present Illness This 73 year old female patient with PMH multiple cranial AVMs s/p surgical interventions, OZZY cerebral aneurysm, CAD, sensorineural hearing loss, COPD, DVT, and heart failure, presented to the ED with c/o chest pain for four days. Also with RUQ pain. Patient also endorsed 18lb weight loss recently. Lipase elevated. Abd/pelvis CT obtained which showed pancreatic stranding, new compression fractures of T11, T12 and L2 with perivertebral edema. Treated for pancreatitis. Troponin negative, not thought to be cardiac related chest pain. Was to get MRCP, but unable to obtain due to previous AVM clips incompatible with MRI. Abd US ordered which showed pancreatic head mass as well as two hepatic lesions that could represent metastases. GI then ordered a stat CT abd/pelvis w/wo contrast-- pancreatic head mass and hepatic lesions again noted. Patient had upper endoscopy and EUS on 10/21, FNA biopsies obtained from 24mm pancreatic lesion and 16mm hepatic lesion. CA19-9 obtained and elevated at 349. Pancreatitis and lipase improved, patient continues to have pain, however. Has used three doses of Dilaudid 0.5mg IV in last 24 hours, as well as Tramadol 50mg x3 doses. Patient will need outpatient heme/onc and surgical/onc follow ups. Palliative care is also consulted for goals of care and pain management. Thank you kindly for this consult. Palliative care team will follow as needed. Allergies Allergy/AdvReac Type Severity Reaction Status Date / Time enoxaparin [From Lovenox] Allergy Severe can not Verified 10/10/19 11:16 take d/t bleeding AVMs heparin Allergy Severe can not Verified 10/10/19 11:16 take d/t bleeding AVMs warfarin [From Coumadin] Allergy Severe can not Verified 10/10/19 11:16 take d/t bleeding AVMs levofloxacin [From Levaquin] Allergy Intermediate "tendons Verified 10/10/19 11:16 in back of leg/foot get hard" Home Medications Home Medications Medication Instructions Recorded Confirmed Type multivitamin 1 tab PO QAM 03/22/19 10/20/19 History pilocarpine HCl 2 % eye drops 1 drops OPB BID 03/22/19 10/20/19 History sertraline 100 mg tablet 100 mg PO QAM 03/22/19 10/20/19 History levothyroxine 150 mcg PO QAM 06/14/19 10/20/19 History magnesium oxide 400 mg PO QAM 07/30/19 10/20/19 History fluticasone furoate 200 1 puffs INH Q24H 09/21/19 10/20/19 History mcg-vilanterol 25 mcg/dose inhalation powder famotidine 20 mg tablet 20 mg PO DAILY #30 tab 09/22/19 10/20/19 Rx tramadol 25 mg PO Q12H PRN 10/10/19 10/20/19 History albuterol sulfate 1 puffs INH QID PRN 10/20/19 10/20/19 History etodolac 200 mg PO Q12H PRN 10/20/19 10/20/19 History fentanyl 1 patch TD Q72H #5 ea 10/25/19 Rx Patient History Medical History Abnormal weight loss (Chronic) Acid reflux (Chronic) Acquired deformity of pinna (Chronic) Almost no appetite (Chronic) Aneurysm of anterior cerebral artery (Chronic) Anxiety Arteriosclerotic coronary artery disease (Chronic) Chronic anticoagulation on 325mg aspirin daily Chronic back pain Chronic diarrhea COPD (chronic obstructive pulmonary disease) (Chronic) inhaler daily/prn, nebulizer prn Degenerative disc disease Difficulty swallowing DVT (deep venous thrombosis) (Chronic) hx of in left leg 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 Rodríguez Osteoarthritis Other nonspecific lymphadenitis (Chronic) PVD (peripheral vascular disease) Seizure last 40yrs ago, was on Dilantin--follows with Dr. John @ [facility] [place] Neurosurgery Sensorineural hearing loss of both ears (Chronic) Solitary pulmonary nodule (Chronic) Spinal stenosis Systolic heart failure (Chronic) Ventricular hypokinesia (Chronic) Vision loss of right eye eye droops/won't turn up or down d/t nerve cutting in brain Surgical History Luz filter in place left History of angiography x25 cerebral angiogram History of appendectomy History of bilateral cataract extraction History of bilateral tubal ligation History of brain surgery x4 d/t AVM History of cardiac cath x2--last 08/2018 @ [facility] in [place], [place] no stent History of cholecystectomy History of colonoscopy History of partial thyroidectomy had done 1st d/t nodule and then later had a complete removal d/t goiter History of right-sided carotid endarterectomy History of surgery removal of large DVT from LLE History of surgery removal of right ear History of thyroidectomy, total d/t nodule and goiter History of tooth extraction all teeth Status post neck dissection AVMs Family History Mother CHF (congestive heart failure) Father Myocardial infarction Brother Family history of diabetes mellitus Other No family history of adverse response to anesthesia Social History (Reviewed 10/20/19 @ 18:47 by IRENE Farias Preferred Language: Lao Communication Ability: Effective Visual Impairment: Diminished 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: Hard of Hearing Wood Last Maker Required: No Beliefs That Will Affect Care: None marital status: singled Current Living Situation: Family Current Living Situation Comment: with son and daughter in law current occupational status: disabled Feels Safe at Home: Yes Smoking Status: Current every day smoker Tobacco Type: cigarettes ; Cigarettes Per Day: 3 ; Do You Dip or Chew Tobacco: No ; Second Hand Exposure: Yes (parents smoked/ smoked) ; Tobacco Cessation Education Requested by Patient: No Hx Alcohol Use: No Hx Substance Use: No Results & Data Vital Signs (Past 12 Hours) Vital Signs Temp Pulse Pulse Resp BP Pulse Ox 10/25/19 11:23 36.4 C L 83 22 140/65 98 10/25/19 11:16 90 18 98 10/25/19 07:18 37.1 C 79 18 122/64 92 10/25/19 07:00 82 10/25/19 03:39 36.9 C 98 H 20 164/75 H 93 Coding Level of Care Code 50458 Inpt Consult Level 3 Diagnoses Goals of care, counseling/discussion Z71.89 Pancreatic mass K86.89 Acute pancreatitis K85.90 Acute pancreatitis complication: no infection or necrosis Pancreatitis type: unspecified pancreatitis type Abdominal pain R10.9 Time Spent (min) 80 Time Spent Midlevel A total of 50 minutes spent by this EDUCATIONAL PSYCHOLOGIST in reviewing chart, speaking with IDT and palliative MD regarding patient condition, pain management and plan. Attending Spent 30 minutes in addition to the 50 minutes spent by KEVIN Reynolds for total of 80 minutes with greater than 50% of the time spent at bedside assessing patient's pain as well is developing a plan of care with patient. Collaborated with attending physician.
[2019-10-25] MEDS: CHECK FENTANYL PATCH PLACEMENT SCH ×2 (16:46→23:48)
--- NOTE | 2019-10-25 22:51 | Hospitalist Progress Note ---
Date of Service October 25, 2019 Assessment & Plan (1) Acute pancreatitis: Sofia Chávez is a 73-year-old female with a past medical history of 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 She was recently admitted from 10/09 to 10/10 for chest pain which she felt was different in character from her current symptoms. She has new compression fractures with edema appreciated on CT. Right upper quadrant abdominal pain with elevated alk phos and lipase Appears to be from pancreatic mass. -Lipase has improved, no longer having pancreatitis. -Endoscopic ultrasound confirms mass in pancreas. -Restarted diet. -Will set up outpatient followup with oncologist. However, prior to discharge, will have Dr. Crawford see the patient. -updated family (daughter in law) Pain control with hydromorphine 0.5/1.0 mg scaled every 3 hours appears to have been making patient drowsy. -will hold for now and place fentanyl patch. -Concern over delirium with opiates, however, today patient is improved in that regard. -Patient likely has a poor prognosis, and will likely focus on comfort in the near future. -However, will await biopsy results and oncology consult. -lidocaine patch did not help. Continue Pepcid 20 mg daily Compression fracture with recent weight loss T11-L2 compression fracture with surrounding edema. Patient tender on spinal palpation No lesions or masses appreciated, patient has had some chills in the preceding weeks and 18 pounds of weight loss Her bony tenderness, compression fractures, weight loss, and appetite loss are concerning for underlying undiagnosed malignancy. -Awaiting biopsy from Endoscopic Ultrasound. - TSH is at goal. History of DE versus heart failure with reduced ejection fraction Patient is not a good historian of her cardiac history. Etiology unclear, hx notes CAD with possible DE although additional notations suggests she actually had Takutsubo's stress cardiomyopathy with in [place] - TTE ordered given high fluid load with pancreatitis tx - Troponin negative - EKG without acute ST/T wave changes -Chest pain does not appear to be cardiac and likely from mass and mets. COPD Continue Brio Ellipta - Duonebs PRN Hypothyroidism Continue Synthroid 150 mcg daily Anxiety/depression Continue sertraline 100 mg daily -esophageal candidiasis Will continue on fluconazole for 10 day course. left foot pain: h/o of tinea pedis. on oral fluconazole for esophageal candidiasis Concern over possible infection. Not warm to touch. but tender to palpation. will obtain x ray, inflammatory markers. This appears to have improved with the fluconazole, will need to continue on perhaps a cream once the 10 day course fo the esophageal candidiasis is complete or transition to wekly PO dose. DVT Prophylaxis: SCDs. Anticoagulation contraindicated 2/2 AVMs. Code Status: Conditional Code (2) Elevated alkaline phosphatase level: (3) AVM (arteriovenous malformation): (4) COPD (chronic obstructive pulmonary disease): (5) Abnormal weight loss: (6) Sensorineural hearing loss of both ears: (7) Arteriosclerotic coronary artery disease: (8) Severe protein-calorie malnutrition: currently NPO cONCERN OVER PANCREATIC MASS. Will get an EUS likely during this hospital stay. Admission and Anticipated Discharge Date Admission Date: October 20, 2019 Subjective Updated family. Patient reports having pain in her chest. She states this has not improved. She continues to require pain medicine through i[facility]. Update: Visited patient after lidocaine patch was order, no relief. Due to her cancer, will order fentanyl patch. Review of Systems Review of Systems: All systems reviewed & are unremarkable except as noted in HPI & below Physical Exam Physical Exam: General: A&Ox4 (improvement from yesterday) NAD. Cachectic. Appears ill. HEENT: Right ear abnormality 2/2 postsurgical change. Oropharynx without lesions. Pulm: improved breath sounds Chest rise symmetrical. Cardiac: RRR, -mrg. Radial pulses intact and symmetrical. Abdominal: Tender to palpation in right upper and right lower quadrant. Abdomen soft, without rigidity. No left quadrant tenderness or rebound. Bowel sounds intact. Extremity: Ankle plantarflexion/dorsiflexion intact and symmetrical bilaterally. 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 Moving all extremities equally. Spine: Focal tenderness at approximately T10-L3 to mid spinal palpation without radicular symptoms. No paraspinal tenderness. Left foot: dry scab on sole near the heel. No drainage, not warm to touch. Tender to palpation Results & Data Results & Data ([facility]) Vital Signs (Past 12 Hours) Vital Signs Temp Pulse Pulse Resp BP Pulse Ox 10/25/19 19:32 36.8 C 75 20 122/60 96 10/25/19 15:34 83 10/25/19 14:59 36.8 C 52 L 20 101/53 L 95 10/25/19 11:23 36.4 C L 83 22 140/65 98 10/25/19 11:16 90 18 98 PG Care Time/CCT Total # of Minutes Spent Total Time Spent with Patient: Total time spent is greater than 50% in c oordination of care (as documented) at patient's floor/unit and/or counseling patient: Coding Level of Care Code 85165 Subseq Hosp Care Lvl 3 Diagnoses Acute pancreatitis K85.90 Acute pancreatitis complication: no infection or necrosis Pancreatitis type: unspecified pancreatitis type Elevated alkaline phosphatase level R74.8 AVM (arteriovenous malformation) Q27.30 COPD (chronic obstructive pulmonary disease) J44.9 Abnormal weight loss R63.4 Sensorineural hearing loss of both ears H90.3 Arteriosclerotic coronary artery disease I25.10 Severe protein-calorie malnutrition E43 Time Spent (min) 35 (1) Acute pancreatitis Acute pancreatitis complication: no infection or necrosis Pancreatitis type: unspecified pancreatitis type Qualified Code(s): K85.90 - Acute pancreatitis without necrosis or infection, unspecified
[2019-10-26] MEDS ORDERED: MoRPHine SULFATE 2 MG/ML CARP IV PRN ×2 (02:41→02:53)
--- NOTE | 2019-10-26 02:43 | Communication Note ---
Date of Service: October 26, 2019 Morphine scaled Q4H added while fentanyl patch reaching steady state
[2019-10-26] MEDS: LEVOTHYROXINE SODIUM 150 MCG TABLET PO SCH (06:18)
[2019-10-26] MEDS: CHECK FENTANYL PATCH PLACEMENT SCH ×2 (08:06→15:53)
[2019-10-26] MEDS: FLUTICASONE/VILANTEROL 200/25MCG 14 PUFFS/INHALER INH SCH (09:04)
[2019-10-26] MEDS: POTASSIUM CHLORIDE 20 MEQ TABCR PO SCH ×2 (09:05→13:30)
[2019-10-26] MEDS: LIDOCAINE 5% 1 PATCH TD SCH (09:05)
[2019-10-26] MEDS: PILOCARPINE HCL 2% OP SOLN 15 ML BTL OPB SCH ×2 (09:05→20:05)
[2019-10-26] MEDS: MULTIVITAMIN TAB PO SCH (09:06)
[2019-10-26] MEDS: FAMOTIDINE 20 MG TAB PO SCH (09:06)
[2019-10-26] MEDS: FLUCONAZOLE 100 MG TAB PO SCH (09:06)
[2019-10-26] MEDS: MAGNESIUM OXIDE 400 MG TAB PO SCH (09:07)
[2019-10-26] MEDS: SERTRALINE HCL 100 MG TABLET PO SCH (09:07)
[2019-10-26] MEDS ORDERED: ONDANSETRON INJ 2 MG/ML 2 ML VIAL IV PRN (09:31)
[2019-10-26] MEDS: HYDROmorphone INJ 0.5 MG/0.5 ML SYR IV PRN ×3 (10:14→18:50)
--- NOTE | 2019-10-26 10:18 | Consultation Report ---
DATE OF CONSULTATION: 10/26/2019 HEMATOLOGY CONSULTATION REASON FOR CONSULTATION: Pancreatic mass with regional lymphadenopathy and liver mets. HISTORY OF PRESENT ILLNESS: Sofia Chávez is a very pleasant 73-year-old who had originally presented back on 10/19 with recurrent abdominal and chest discomfort. The patient herself is unfortunately a poor historian attributable to dementia, but has intermittent symptoms over the past couple months. At the bedside, she readily admits she has had a poor appetite and has lost weight, she estimates between 10 and 15 pounds. On admission, radiographic evidence was not terribly strong. Ultrasound suggested there was a pancreatic mass, but CT scan of the abdomen and pelvis was less convincing. The hospitalist service had consulted me early on and I advised them to do further diagnostics and subsequent biopsy for confirmation. Clearly at the bedside this morning, this patient manifests a very poor performance status. She has difficulty arising from bed, requires considerable assistance and has ambulated minimally. She has several comorbidities. Biopsy by EUS was carried out with evidence of metastatic adenocarcinoma from a lymph node (boo hepatis). The pancreatic head mass revealed no evidence of neoplasia. Stomach and esophagus were also biopsied and essentially nondiagnostic. Further staining on the positive biopsy is pending and we will await confirmation of the origin. Again, Sofia herself can provide little information moving forward. PAST MEDICAL HISTORY: Quite extensive including chronic obstructive pulmonary disease, chronic diarrhea, chronic back pain, atherosclerotic coronary artery disease, anxiety, aneurysm of the anterior cerebral artery, gastroesophageal reflux, history of DVT, arteriovenous malformations, hyperlipidemia, hypothyroidism, status post myocardial infarction, seizure disorder, osteoarthritis, spinal stenosis, systolic heart failure. PAST SURGICAL HISTORY: Just as extensive, [place] filter, angiography, appendectomy, bilateral cataract extraction, bilateral tubal ligation, brain surgery x4 for AVMs, history of cardiac cath, cholecystectomy, colonoscopy, partial thyroidectomy, right-sided carotid endarterectomy, thrombectomy, large DVT from left lower extremity, removal of right ear, total thyroidectomy, tooth extraction, neck dissection. MEDICATIONS: Etodolac 200 mg p.o. q.4 hours p.r.n., albuterol sulfate 1 puff inhaled q.i.d. p.r.n., tramadol 25 mg p.o. q.12 hours p.r.n., famotidine 20 mg p.o. daily, Flonase 1 puff inhaled q.24 hours, magnesium oxide 400 mg p.o. daily, levothyroxine 150 mcg p.o. daily, sertraline 100 mg p.o. daily, pilocarpine 1 drop OPB b.i.d., multivitamin 1 p.o. daily. ALLERGIES: LOVENOX, HEPARIN, WARFARIN AND LEVOFLOXACIN. FAMILY HISTORY: Mother of congestive heart failure. Father of myocardial infarction. She has a brother who suffers from diabetes mellitus. SOCIAL HISTORY: The patient lives with her son. She was an everyday smoker prior to admission. Negative for alcohol or substance abuse. REVIEW OF SYSTEMS: Again, unobtainable because of the patient's mental status. PHYSICAL EXAMINATION: GENERAL: Very pleasant, somewhat disoriented 73-year-old female, in no acute distress. VITAL SIGNS: Temperature 37, pulse 74, respiratory rate 18, blood pressure 123/71. SKIN: Turgor is poor. No rashes or lesions. No evidence of ecchymosis or petechiae. HEENT: Head atraumatic, normocephalic. Eyes: PERRLA, EOMI. Sclerae nonicteric. No conjunctival injection. Nares patent without rhinorrhea or discharge. Throat is clear. Tongue is midline. Mucous membranes are moist. NECK: Supple without JVD or thyromegaly. LYMPHATICS: No cervical or supraclavicular palpable nodes. HEART: Regular rate and rhythm. LUNGS: Rhonchi heard in all lung lozano bilaterally. ABDOMEN: Soft, nontender, nondistended. EXTREMITIES: No clubbing, cyanosis or edema. MUSCULOSKELETAL: Strength and pulses are equal in all 4 quadrants. NEUROLOGICALLY: She is awake and somewhat alert, definitely disoriented. Cranial nerves grossly intact. LABORATORY DATA: WBC count 6430, hemoglobin 11.7, platelet count 263,000. Sodium 135, potassium 3.7, chloride 99, carbon dioxide 31, creatinine 0.59, BUN 4. NPB 1771. IMPRESSION: 1. Acute pancreatitis. 2. Anorexia and weight loss. 3. Pancreatic/liver lesions, preliminary diagnosis of metastatic adenocarcinoma, primary unknown. 4. History of coronary artery disease. 5. Chronic obstructive pulmonary disease. PLAN: Sofia is a pleasant, but unfortunate 73-year-old female with multiple comorbid issues including recent discovery of both pancreatic and liver lesions radiographically. The patient admittedly has been in clinical decline over the past several weeks. Again, she has multiple medical issues and continues to smoke cigarettes. I was originally consulted on the patient's admission and had recommended the medical team to pursue better radiographic and obvious pathologic evidence of neoplasia. Biopsy was carried out and a boo hepatis lymph node does reveal evidence for metastatic adenocarcinoma, but unfortunately there are not enough cells to confirm the diagnosis. Considering the patient's elevated CA 19-9, my best educated guess would be a pancreatic primary. However, tumor marker never should be used to confirm the diagnosis. Thus, the question remains how aggressive to consider rebiopsy as I believe Sofia is a poor candidate for salvage therapy of any kind moving forward. She has difficulty with ambulation. Her appetite is poor. She has been losing weight and she has multiple comorbid issues, which would certainly make salvage chemotherapy a risky proposition. I agree with the palliative consult, but certainly willing to sit down with the patient and family members to discuss her prognosis. I have nothing further to add, agree with medical management otherwise. I suspect she will be heading towards discharge and again would be more than happy to reconvene with the patient and family members for followup.
--- NOTE | 2019-10-26 16:09 | Palliative Care Progress Note ---
Date of Service October 26, 2019 Assessment & Plan (1) Goals of care, counseling/discussion: -73 year old female patient with PMH multiple cranial AVMs s/p surgical interventions, OZZY cerebral aneurysm, CAD, sensorineural hearing loss, COPD, DVT, and heart failure, presented to the ED with c/o chest pain for four days. Also with RUQ pain. Patient also endorsed 18lb weight loss recently. Lipase elevated. Abd/pelvis CT obtained which showed pancreatic stranding, new compression fractures of T11, T12 and L2 with perivertebral edema. Treated for pancreatitis. CT abd/pelvis w/wo contrast-- pancreatic head mass and hepatic lesions again noted. Patient had upper endoscopy and EUS on 10/21, FNA biopsies obtained from 24mm pancreatic lesion and 16mm hepatic lesion. CA19-9 obtained and elevated at 349. Lipase improved, patient continues to have pain, however. She required doses of Dilaudid 0.5mg IV in last 24 hours, started on a 12 mcg fentanyl patch yesterday. Palliative care is also consulted for goals of care and pain management. Medical oncology note appreciated -Patient seen this afternoon. Patient is oriented. States she is has constant severe pain in epigastric area-- likely the area of pancreatic head mass. Forgets to ask for pain medication. -Started fentanyl patch at 12mcg on 10/24. Stop Tramadol. Continue Dilaudid 0.5mg IV Q3h PRN breakthrough pain. Will likely need outpatient palliative follow up. -We will follow during hospitalization. (2) Pancreatic mass: (3) Acute pancreatitis: (4) Abdominal pain: Subjective Patient awake and alert, appears comfortable. Patient states the fentanyl patch did help slightly with her pain, continues to complain of significant upper abdominal pain. Patient did require 2 PRN IV Dilaudid's-1 at 10 AM and 1 at 230 today. Biopsies of the pancreatic mass were negative for malignancy. EGD with biopsies was positive for candidal esophagitis. Patient's fentanyl patch was placed on her left upper chest-patient is quite cachectic and with little subcu fat may not be absorbing well-did speak to nursing regarding changing patch site to an area where she has more subcu fat. Will continue to follow and assist with pain management. Patient was started on Diflucan this a.m. Review of Systems Review of Systems: Patient denies fever, chills, chest pain, shortness of breath Positive for wet cough, upper abdominal pain Physical Exam Physical Exam: PE: Patient lying back in bed, no acute distress. HEENT: EOMI, hearing within normal limits Respirations: Unlabored, positive upper airway secretions CV: Regular rate, no edema Abdomen: Less painful to light palpation Extremities: Cachectic Neuro: Alert and able to participate with medical decision making. Results & Data Vital Signs (Past 12 Hours) Vital Signs Temp Pulse Pulse Resp BP Pulse Ox 10/26/19 15:03 79 10/26/19 14:55 98.6 F 76 20 117/62 97 10/26/19 10:49 98.6 F 74 18 127/60 94 10/26/19 07:27 98.6 F 74 18 123/71 96 10/26/19 07:00 63 PG Care Time/CCT Total # of Minutes Spent Total Time Spent with Patient: Total time spent 25 minutes with greater than 50% of the time spent at bedside assessing patient's current pain status as well as collaborating with nursing and attending physician. Coding Level of Care Code 81735 Subseq Hosp Care Lvl 2 Diagnoses Goals of care, counseling/discussion Z71.89 Pancreatic mass K86.89 Acute pancreatitis K85.90 Acute pancreatitis complication: no infection or necrosis Pancreatitis type: unspecified pancreatitis type Abdominal pain R10.9 Time Spent (min) 25 (1) Acute pancreatitis Acute pancreatitis complication: no infection or necrosis Pancreatitis type: unspecified pancreatitis type Qualified Code(s): K85.90 - Acute pancreatitis without necrosis or infection, unspecified
--- NOTE | 2019-10-26 19:17 | Hospitalist Progress Note ---
Date of Service October 26, 2019 Assessment & Plan (1) Acute pancreatitis: Sofia Chávez is a 73-year-old female with a past medical history of 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 She was recently admitted from 10/09 to 10/10 for chest pain which she felt was different in character from her current symptoms. She has new compression fractures with edema appreciated on CT. Right upper quadrant abdominal pain with elevated alk phos and lipase Appears to be from pancreatic mass. -Lipase has improved, no longer having pancreatitis. -Endoscopic ultrasound confirms mass in pancreas although biopsies apparently without clear findings - see oncology consult agree ?utility in putting her through much more to confirm dx if she wouldn't be able to tolerate Rx. -advance diet -continue to work on pain control (palliative adjusted site for patch, i had to resume dilauded for now) Compression fracture with recent weight loss T11-L2 compression fracture with surrounding edema. no longer tender on palp No lesions or masses appreciated, patient has had some chills in the preceding weeks and 18 pounds of weight loss - concern would be malignant vs more likely concomitant osteoporotic concern of history of MT versus heart failure with reduced ejection fraction clinically chest pain does not appear cardiac. echo quite reassuring. trop was negative --> concerns seem to be unfounded. COPD Continue Breo Ellipta -add scheduled anticholinergic -follow serial exams -O2 for now/supportive care - Duonebs PRN Hypothyroidism Continue Synthroid 150 mcg daily Anxiety/depression Continue sertraline 100 mg daily -esophageal candidiasis Will continue on fluconazole for 10 day course, possibly longer depending on clinical progress left foot pain: h/o of tinea pedis. on oral fluconazole for esophageal candidiasis continue to follow clinically DVT Prophylaxis: SCDs. Anticoagulation contraindicated 2/2 AVMs. Code Status: Conditional Code dispo - need better pain control; PT/OT eval and treat to assist in dispo planning (2) Elevated alkaline phosphatase level: (3) AVM (arteriovenous malformation): (4) COPD (chronic obstructive pulmonary disease): (5) Abnormal weight loss: (6) Sensorineural hearing loss of both ears: (7) Arteriosclerotic coronary artery disease: (8) Severe protein-calorie malnutrition: advance diet Admission and Anticipated Discharge Date Admission Date: October 20, 2019 Subjective limited hx but seems to have been doing worse with pain earlier today - and with that was also less mobile and ate less - then when pain control improved while she didn't eat greatly she did eat better, and while she wasn't extremely mobile was at least able to use bedside commode. for her part she relates chest pain and back pain (relates chest pain first). denies sob. denies using O2 at home. Review of Systems Review of Systems: All systems reviewed & are unremarkable except as noted in HPI & below Physical Exam Physical Exam: gen pleasant, seems mildly confused, nad. heent nc at mmm. cardio reg no r/m/g. lungs diffuse rhonchi throughout no rales no wheeze no accessory muscles no tachypnea no appearance of dyspnea or respiratory distress. abd soft. ext no cyanosis. Results & Data Results & Data ([facility]) Vital Signs (Past 12 Hours) Vital Signs Temp Pulse Pulse Resp BP Pulse Ox 10/26/19 15:03 79 10/26/19 14:55 98.6 F 76 20 117/62 97 10/26/19 10:49 98.6 F 74 18 127/60 94 10/26/19 07:27 98.6 F 74 18 123/71 96 PG Care Time/CCT Total # of Minutes Spent Total Time Spent with Patient: Total time spent is greater than 50% in coordination of care (as documented) at patient's floor/unit and/or counseling patient: Coding Level of Care Code 47525 Subseq Hosp Care Lvl 3 Diagnoses Acute pancreatitis K85.90 Acute pancreatitis complication: no infection or necrosis Pancreatitis type: unspecified pancreatitis type Elevated alkaline phosphatase level R74.8 AVM (arteriovenous malformation) Q27.30 COPD (chronic obstructive pulmonary disease) J44.9 Abnormal weight loss R63.4 Sensorineural hearing loss of both ears H90.3 Arteriosclerotic coronary artery disease I25.10 Severe protein-calorie malnutrition E43 (1) Acute pancreatitis Acute pancreatitis complication: no infection or necrosis Pancreatitis type: unspecified pancreatitis type Qualified Code(s): K85.90 - Acute pancreatitis without necrosis or infection, unspecified
[2019-10-27] MEDS: HYDROmorphone INJ 0.5 MG/0.5 ML SYR IV PRN ×2 (03:22→13:03)
[2019-10-27] MEDS: CHECK FENTANYL PATCH PLACEMENT SCH ×2 (03:23→08:04)
[2019-10-27] MEDS: LEVOTHYROXINE SODIUM 150 MCG TABLET PO SCH (06:36)
[2019-10-27] MEDS: FLUTICASONE/VILANTEROL 200/25MCG 14 PUFFS/INHALER INH SCH (08:05)
[2019-10-27] MEDS: PILOCARPINE HCL 2% OP SOLN 15 ML BTL OPB SCH ×2 (08:05→20:30)
[2019-10-27] MEDS: FLUCONAZOLE 100 MG TAB PO SCH (08:06)
[2019-10-27] MEDS: SERTRALINE HCL 100 MG TABLET PO SCH (08:06)
[2019-10-27] MEDS: FAMOTIDINE 20 MG TAB PO SCH (08:06)
[2019-10-27] MEDS: MULTIVITAMIN TAB PO SCH (08:07)
[2019-10-27] MEDS: LIDOCAINE 5% 1 PATCH TD SCH (08:08)
[2019-10-27] MEDS: MAGNESIUM OXIDE 400 MG TAB PO SCH (08:09)
[2019-10-27] MEDS ORDERED: OXYCODONE HCL IR 5 MG TAB (IMMEDIATE RELEASE) PO PRN (09:09)
[2019-10-27] MEDS: UMECLIDINIUM BROMIDE 62.5MCG/BLISTER 7 PUFFS/INHALER INH SCH (10:15)
[2019-10-27] MEDS: ACETAMINOPHEN 325 MG TAB PO SCH ×2 (14:23→20:28)
[2019-10-27] MEDS ORDERED: AZITHROMYCIN 250 MG TAB PO ONE (16:00)
[2019-10-27] MEDS ORDERED: fentaNYL 25 MCG/HR TDSY TD SCH (16:00)
--- NOTE | 2019-10-27 17:07 | Hospitalist Progress Note ---
Date of Service October 27, 2019 Assessment & Plan (1) Acute pancreatitis: Sofia Chávez is a 73-year-old female with a past medical history of 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 She was recently admitted from 10/09 to 10/10 for chest pain which she felt was different in character from her current symptoms. She has new compression fractures with edema appreciated on CT. Right upper quadrant abdominal pain with elevated alk phos and lipase Appears to be from pancreatic mass. -Lipase has improved, no longer having pancreatitis. -Endoscopic ultrasound confirms mass in pancreas although biopsies apparently without clear findings - see oncology consult agree ?utility in putting her through much more to confirm dx if she wouldn't be able to tolerate Rx. (Dr Crawford notes he'll discuss w family) -advanced diet - when pain controlled seems to be tolerating well -continue to work on pain control - increase patch, increase hydrocodone, scheduled tylenol, continue to follow/adjust Compression fracture with recent weight loss T11-L2 compression fracture with surrounding edema. no longer tender on palp No lesions or masses appreciated, patient has had some chills in the preceding weeks and 18 pounds of weight loss - concern would be malignant vs more likely concomitant osteoporotic concern of history of PA versus heart failure with reduced ejection fraction clinically chest pain does not appear cardiac. echo quite reassuring. trop was negative --> concerns seem to be unfounded. COPD lung exam very coarse, no distress, but still needing O2 -will cover with zithromax for atypicals and pulmonary anti-inflammatory effect -LAMA/LABA/ICS -prn duonebs Hypothyroidism Continue Synthroid 150 mcg daily Anxiety/depression Continue sertraline 100 mg daily -esophageal candidiasis Will continue on fluconazole for 10 day course, possibly longer depending on clinical progress - although with eating improving hopefully can do a shorter end course. left foot pain: h/o of tinea pedis. on oral fluconazole for esophageal candidiasis continue to follow clinically DVT Prophylaxis: SCDs. Anticoagulation contraindicated 2/2 AVMs. Code Status: Conditional Code dispo - need better pain control; PT/OT eval and treat to assist in dispo planning although family anticipates home w supervision (2) Elevated alkaline phosphatase level: (3) AVM (arteriovenous malformation): (4) COPD (chronic obstructive pulmonary disease): (5) Abnormal weight loss: (6) Sensorineural hearing loss of both ears: (7) Arteriosclerotic coronary artery disease: (8) Severe protein-calorie malnutrition: advance diet Admission and Anticipated Discharge Date Admission Date: October 20, 2019 Subjective pain better than it was but still up and down. when first saw this AM pain was fairly bad - but was just getting oxycodone. later revisited - oxycodone felt like it helped some but wore off far too quickly. breathing still feels reasonable. d/w oncology - appreciate input. he noted he would discuss w family in regards to whether to pursue further pathologic dx Review of Systems Review of Systems: All systems reviewed & are unremarkable except as noted in HPI & below Physical Exam Physical Exam: gen aao pleasant nad heent nc at mmm, lungs still coarse rhonchi throughout but no respiratory distress no accessory muscles no tachypnea good air entry no wheeze. skin no rashes no pallor or icterus Results & Data Results & Data ([facility]) Vital Signs (Past 12 Hours) Vital Signs Temp Pulse Pulse Resp BP BP Pulse Ox 10/27/19 16:06 98.2 F 79 20 112/60 95 10/27/19 14:20 94 H 10/27/19 10:58 98.6 F 75 20 130/71 95 10/27/19 07:17 77 10/27/19 06:47 98.6 F 95 H 18 147/77 H 92 PG Care Time/CCT Total # of Minutes Spent Total Time Spent with Patient: Total time spent is greater than 50% in coordination of care (as documented) at patient's floor/unit and/or counseling patient: Coding Level of Care Code 44730 Subseq Hosp Care Lvl 3 Diagnoses Acute pancreatitis K85.90 Acute pancreatitis complication: no infection or necrosis Pancreatitis type: unspecified pancreatitis type Elevated alkaline phosphatase level R74.8 AVM (arteriovenous malformation) Q27.30 COPD (chronic obstructive pulmonary disease) J44.9 Abnormal weight loss R63.4 Sensorineural hearing loss of both ears H90.3 Arteriosclerotic coronary artery disease I25.10 Severe protein-calorie malnutrition E43 (1) Acute pancreatitis Acute pancreatitis complication: no infection or necrosis Pancreatitis type: unspecified pancreatitis type Qualified Code(s): K85.90 - Acute pancreatitis without necrosis or infection, unspecified
[2019-10-27] MEDS ORDERED: FLUTICASONE/SALMETEROL 250/50 (ADVAIR) 14 PUFF/1 INHALER INH SCH (21:00)
[2019-10-28] MEDS: CHECK FENTANYL PATCH PLACEMENT SCH ×4 (00:13→23:34)
[2019-10-28] MEDS: HYDROmorphone INJ 0.5 MG/0.5 ML SYR IV PRN ×2 (00:14→06:38)
[2019-10-28] MEDS: LEVOTHYROXINE SODIUM 150 MCG TABLET PO SCH (06:29)
[2019-10-28] MEDS: UMECLIDINIUM BROMIDE 62.5MCG/BLISTER 7 PUFFS/INHALER INH SCH (08:41)
[2019-10-28] MEDS: ACETAMINOPHEN 325 MG TAB PO SCH ×3 (08:42→20:32)
[2019-10-28] MEDS: FLUTICASONE/VILANTEROL 200/25MCG 14 PUFFS/INHALER INH SCH (08:42)
[2019-10-28] MEDS: PILOCARPINE HCL 2% OP SOLN 15 ML BTL OPB SCH ×2 (08:43→20:31)
[2019-10-28] MEDS: MAGNESIUM OXIDE 400 MG TAB PO SCH (08:43)
[2019-10-28] MEDS: MULTIVITAMIN TAB PO SCH (08:43)
[2019-10-28] MEDS: SERTRALINE HCL 100 MG TABLET PO SCH (08:43)
[2019-10-28] MEDS: FLUCONAZOLE 100 MG TAB PO SCH (08:44)
[2019-10-28] MEDS: LIDOCAINE 5% 1 PATCH TD SCH (08:45)
[2019-10-28] MEDS: FAMOTIDINE 20 MG TAB PO SCH (08:46)
[2019-10-28] MEDS: OXYCODONE HCL IR 5 MG TAB (IMMEDIATE RELEASE) PO PRN (09:04)
--- NOTE | 2019-10-28 09:19 | Progress Notes ---
DATE: 10/28/2019 DIAGNOSES: 1. Acute pancreatitis. 2. Anorexia/weight loss. 3. Pancreatic/liver lesions. Preliminary diagnosis of metastatic adenocarcinoma, primary unknown. 4. History of coronary artery disease. 5. Oxygen-dependent chronic obstructive pulmonary disease. SUBJECTIVE: Sofia was seen and examined at bedside. She was a bit more awake and alert now receiving opioid analgesic for pain. Her p.o. intake has been marginal at best. She presented with poor appetite and had lost an estimated 10-15 pounds. I briefly spoke to the endoscopist on her case stating that he would be amenable to rebiopsy. However, I expressed my thoughts regarding what we would do with that information. I am not enthusiastic to offer her salvage chemotherapy. I actually spoke to her daughter and son today on the phone explaining my thought processes moving forward. Nursing reports no overnight difficulties otherwise. OBJECTIVE: GENERAL: The patient is awake and alert. She is 73 years of age. VITAL SIGNS: Temperature 36.8, pulse 68, respirations 20, blood pressure 122/76. SKIN: Without rash or lesion. HEENT: Oral mucosa is dry. No buccal lesions or ulcerations. HEART: Regular rate and rhythm. LUNGS: Diffuse rhonchi heard in all lung loz[place]. ABDOMEN: Soft, nontender, nondistended. EXTREMITIES: No clubbing, cyanosis or edema. NEUROLOGIC: Grossly intact. No pending laboratory data. RADIOGRAPHIC DATA: KUB done on 10/25/2019 showed no evidence of obstruction. IMPRESSION: 1. Adenocarcinoma GI tract, primary unknown. 2. Acute pancreatitis. 3. Compression fracture with recent weight loss. 4. Oxygen-dependent COPD. 5. Herpetic/esophageal candidiasis. 6. Anorexia/weight loss. In summary, I did visit with Sofia at bedside again. She was a bit more awake and alert but overall not doing terribly well. As promised I contacted both her son and daughter via telephone this morning explaining my position. I also spoke to the endoscopist, Dr. Kat, who originally obtained the biopsy. Dr. Kat is willing to rebiopsy if the patient and family so desire. That said, my original recommendations remain, specifically not being terribly enthusiastic to offer salvage chemotherapy to a patient with a very poor performance status. I explained this to the patient's daughter and son who seem to be on board with leaning towards palliative approach. They have asked to be contacted by the hospitalist service to determine disposition for their mother, detention versus hospice at home. The family members may consider rebiopsying for prognostic information which again I am not against. I suspect her tumor is pancreatic of origin and her prognosis remains quite poor. I would estimate her survival weeks to maybe a month or two. Questions were answered to the family's satisfaction. They seemed to be satisfied with the explanations provided. I will officially sign off. If there are any questions or concerns, feel free to contact me at any time. MTDJoie
--- NOTE | 2019-10-28 13:48 | Palliative Care Consultation ---
Date of Consultation October 28, 2019 Assessment & Plan (1) Goals of care, counseling/discussion: (2) Pancreatic mass: (3) Acute pancreatitis: Acute pancreatitis complication: no infection or necrosis Pancreatitis type: unspecified pancreatitis type Qualified Code(s): K85.90 - Acute pancreatitis without necrosis or infection, unspecified (4) Abdominal pain: History of Present Illness Attending Physician: Enrico Solano DO Allergies Allergy/AdvReac Type Severity Reaction Status Date / Time enoxaparin [From Lovenox] Allergy Severe can not Verified 10/10/19 11:16 take d/t bleeding AVMs heparin Allergy Severe can not Verified 10/10/19 11:16 take d/t bleeding AVMs warfarin [From Coumadin] Allergy Severe can not Verified 10/10/19 11:16 take d/t bleeding AVMs levofloxacin [From Levaquin] Allergy Intermediate "tendons Verified 10/10/19 11:16 in back of leg/foot get hard" Home Medications Home Medications Medication Instructions Recorded Confirmed Type multivitamin 1 tab PO QAM 03/22/19 10/20/19 History pilocarpine HCl 2 % eye drops 1 drops OPB BID 03/22/19 10/20/19 History sertraline 100 mg tablet 100 mg PO QAM 03/22/19 10/20/19 History levothyroxine 150 mcg PO QAM 06/14/19 10/20/19 History magnesium oxide 400 mg PO QAM 07/30/19 10/20/19 History fluticasone furoate 200 1 puffs INH Q24H 09/21/19 10/20/19 History mcg-vilanterol 25 mcg/dose inhalation powder famotidine 20 mg tablet 20 mg PO DAILY #30 tab 09/22/19 10/20/19 Rx tramadol 25 mg PO Q12H PRN 10/10/19 10/20/19 History albuterol sulfate 1 puffs INH QID PRN 10/20/19 10/20/19 History etodolac 200 mg PO Q12H PRN 10/20/19 10/20/19 History fentanyl 1 patch TD Q72H #5 ea 10/25/19 Rx Patient History Medical History Abnormal weight loss (Chronic) Acid reflux (Chronic) Acquired deformity of pinna (Chronic) Almost no appetite (Chronic) Aneurysm of anterior cerebral artery (Chronic) Anxiety Arteriosclerotic coronary artery disease (Chronic) Chronic anticoagulation on 325mg aspirin daily Chronic back pain Chronic diarrhea COPD (chronic obstructive pulmonary disease) (Chronic) inhaler daily/prn, nebulizer prn Degenerative disc disease Difficulty swallowing DVT (deep venous thrombosis) (Chronic) hx of in left leg 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 Rodríguez Osteoarthritis Other nonspecific lymphadenitis (Chronic) PVD (peripheral vascular disease) Seizure last 40yrs ago, was on Dilantin--follows with Dr. 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/won't turn up or down d/t nerve cutting in brain Surgical History Luz filter in place left History of angiography x25 cerebral angiogram History of appendectomy History of bilateral cataract extraction History of bilateral tubal ligation History of brain surgery x4 d/t AVM History of cardiac cath x2--last 08/2018 @ [facility] in [place], [place] no stent History of cholecystectomy History of colonoscopy History of partial thyroidectomy had done 1st d/t nodule and then later had a complete removal d/t goiter History of right-sided carotid endarterectomy History of surgery removal of large DVT from LLE History of surgery removal of right ear History of thyroidectomy, total d/t nodule and goiter History of tooth extraction all teeth Status post neck dissection AVMs Family History Mother CHF (congestive heart failure) Father Myocardial infarction Brother Family history of diabetes mellitus Other No family history of adverse response to anesthesia Social History Preferred Language: Croatian Communication Ability: Effective Visual Impairment: Diminished 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: Hard of Hearing 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 Beliefs That Will Affect Care: None marital status: singled Current Living Situation: Family Current Living Situation Comment: with son and daughter in law current occupational status: disabled Feels Safe at Home: Yes Smoking Status: Current every day smoker Tobacco Type: cigarettes ; Cigarettes Per Day: 3 ; Second Hand Exposure: Yes (parents smoked/ smoked) ; Hx Alcohol Use: No Hx Substance Use: No Results & Data Vital Signs (Past 12 Hours) Vital Signs Temp Pulse Pulse Resp BP Pulse Ox 10/28/19 11:23 36.4 C L 91 H 20 127/74 95 10/28/19 08:58 68 10/28/19 07:14 36.8 C 68 20 126/61 93 10/28/19 04:53 36.4 C L 79 18 130/80 90 PG Care Time/CCT Total # of Minutes Spent Total Time Spent with Patient: Total time spent is greater than 50% in coordination of care (as documented) at patient's floor/unit and/or counseling patient: Coding Diagnoses Goals of care, counseling/discussion Z71.89 Pancreatic mass K86.89 Acute pancreatitis K85.90 Acute pancreatitis complication: no infection or necrosis Pancreatitis type: unspecified pancreatitis type Abdominal pain R10.9
--- NOTE | 2019-10-28 14:15 | Palliative Care Progress Note ---
Date of Service October 28, 2019 Assessment & Plan (1) Goals of care, counseling/discussion: -Patient seen and examined by palliative MD this afternoon. -Spoke with patient's attending physician. She is somewhat drowsy today, but does seem to finally be comfortable. Plan is to keep pain medications where they're at today, reassess tomorrow. Would recommend discontinuing the IV Dilaudid if patient is comfortable and still drowsy tomorrow. -Spoke with patient's son Stanley and [id number], Malaika, on phone for 45 minutes. Patient lives with them. Prior to her becoming ill about a month ago, patient was still independent and fully functioning. However, since her pain, nausea, diarrhea, weight loss, etc., started, she has of course needed increased care. -Family is very understanding of the fact that patient has metastatic adenocarcinoma, and that we have not been able to make an official diagnosis due to inadequate tissue. They are aware of the options: pursue further biopsy vs. focus solely on comfort and pursue hospice care. However, they know patient is not a good candidate for treatment for the cancer such as chemotherapy. Therefore, they are leaning towards NOT pursuing further biopsy and wanted to discuss the home hospice option further. -We talked in great detail about home hospice and the goal of comfort care. Son states that prior to patient coming to the hospital, she began filling out a living will which stated that she would not want any sort of life prolonging measures if she is faced with a terminal illness. The will has not been signed/witnessed yet, but it gives insight into patient's wishes. -Family would like to make a final decision on this once patient is able to have this conversation with them. They are going to try again tomorrow. -Son also brought up that patient was on opioids for about 30 years in the past, and she sometimes had issues with taking too many opioids and not using them appropriately. He stated she would go days without taking any, then would take too many at once. WE talked about how to safely administer and lock opioids at home if she does in fact come home with hospice. -Son and DIL also brought up several times about patient's severe athlete's foot infection. Son states it was affecting patients ability to walk, and ultimately is affecting her performance status. He notes of course that he doesn't expect her performance status to miraculously improve with the infection treated, but for comfort reasons still wants it to be addressed. I informed him that patient is on fluconazole orally, and would ask Dr. Solano to address it with him per son's request. -Plan is to continue current treatment. Decrease pain medication tomorrow if still drowsy. Continue conversation about goals of care. Family leaning towards home with hospice, but of course would like patient to be part of that decision. -WE will continue to follow along. (2) Pancreatic mass: (3) Acute pancreatitis: (4) Abdominal pain: Subjective Patient seen by palliative MD this afternoon. Per report, still wifty and drowsy today. Receiving IV Dilaudid and oxycodone 7.5mg PRN. Results & Data Vital Signs (Past 12 Hours) Vital Signs Temp Pulse Pulse Resp BP Pulse Ox 10/28/19 11:23 36.4 C L 91 H 20 127/74 95 10/28/19 08:58 68 10/28/19 07:14 36.8 C 68 20 126/61 93 10/28/19 04:53 36.4 C L 79 18 130/80 90 Supervising Physician Co-Signing Physician Notes Patient seen and examined, patient drowsy on exam, appears more comfortable. Patient continues to have fentanyl patch placed in an area of low subcu fat- addressed patch location with nursing. PE: Patient awake, drowsy, states pain has improved HEENT: EOMI, hearing within normal limits Respirations: Unlabored, continues to have upper airway secretions and loose cough CV: Regular rate Abdomen: Less tender to light palpation Extremities: Cachectic Neuro: Drowsy Agree with above note, assessment and plan as per KEVIN Reynolds. Will continue to follow and assist patient and family with medical decision making. We will continue to assist with med adjustments for improved pain control. PG Care Time/CCT Prolonged Care Time Prolonged Care Time: Yes Total Prolonged Care Time: 30 65 Coding Level of Care Code 18110 Subseq Hosp Care Lvl 3 Diagnoses Goals of care, counseling/discussion Z71.89 Pancreatic mass K86.89 Acute pancreatitis K85.90 Acute pancreatitis complication: no infection or necrosis Pancreatitis type: unspecified pancreatitis type Abdominal pain R10.9 Additional Codes Prolonged Care Time - Prolonged Care Time: Yes ([id number]) Time Spent (min) 65 Time Spent Midlevel A total of 65 minutes spent by this CHARGE ACCOUNTS AUDIT CLERK in reviewing chart, speaking with attending and palliative MDs, as well as prolonged phone conversation with patient's son and [id number] regarding goals of care, hospice, and discharge planning. (1) Acute pancreatitis Acute pancreatitis complication: no infection or necrosis Pancreatitis type: unspecified pancreatitis type Qualified Code(s): K85.90 - Acute pancreatitis without necrosis or infection, unspecified
--- NOTE | 2019-10-28 14:52 | Electrocardiogram Report ---
Test Reason : Blood Pressure : / mmHG Vent. Rate : 072 BPM Atrial Rate : 072 BPM P-R Int : 112 ms QRS Dur : 074 ms QT Int : 370 ms P-R-T Axes : 054 -22 021 degrees QTc Int : 405 ms Sinus rhythm with sinus arrhythmia with frequent , and consecutive Premature ventricular complexes Abnormal ECG When compared with ECG of 22-OCT-2019 21:53, Premature ventricular complexes are now Present QRS axis Shifted left T wave inversion no longer evident in Anterior leads Confirmed by Les Damon ([id number]) on 10/28/2019 2:52:27 PM Referred By: REFERRED SELF Confirmed By:Les Damon
[2019-10-28] MEDS: AZITHROMYCIN 250 MG TAB PO SCH (15:35)
--- NOTE | 2019-10-28 19:01 | Hospitalist Progress Note ---
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 She was recently admitted from 10/09 to 10/10 for chest pain which she felt was different in character from her current symptoms. She has new compression fractures with edema appreciated on CT. Right upper quadrant abdominal pain with elevated alk phos and lipase Appears to be from pancreatic mass. -Lipase has improved, no longer having pancreatitis. -Endoscopic ultrasound confirms mass in pancreas although biopsies apparently without clear findings - all in agreement (including family) that pursuing tissue dx would have little to no utility since she would not be able to tolerate treatment -advanced diet - when pain controlled seems to be tolerating well -continue to work on pain control - today pain controlled but slightly sedated - will keep same regimen for now and then if still sedate tomorrow reduce, but given that she's only mildly sedated she might adjust to meds and sedation will pass Compression fracture with recent weight loss T11-L2 compression fracture with surrounding edema. no longer tender on palp No lesions or masses appreciated, patient has had some chills in the preceding weeks and 18 pounds of weight loss - concern would be malignant vs more likely concomitant osteoporotic (but family also notes fall - probably osteoporotic) concern of history of CA versus heart failure with reduced ejection fraction clinically chest pain does not appear cardiac. echo quite reassuring. trop was negative --> concerns seem to be unfounded. COPD lung exam very coarse, no distress, but still needing O2 -continue to cover zithromax for atypicals and pulmonary anti-inflammatory effect -LAMA/LABA/ICS -prn duonebs Hypothyroidism Continue Synthroid 150 mcg daily Anxiety/depression Continue sertraline 100 mg daily -esophageal candidiasis Will continue on fluconazole for 10 day course, possibly longer depending on clinical progress left foot pain: h/o of tinea pedis. on oral fluconazole for esophageal candidiasis continue to follow clinically but what i see today is mostly dependant edema and some superfiical skin changes DVT Prophylaxis: SCDs. Anticoagulation contraindicated 2/2 AVMs. Code Status: Conditional Code dispo - need better pain control; PT/OT eval and treat to assist in dispo planning although family anticipates home w supervision - hopefully in next 1-2 days (2) Elevated alkaline phosphatase level: (3) AVM (arteriovenous malformation): (4) COPD (chronic obstructive pulmonary disease): (5) Abnormal weight loss: (6) Sensorineural hearing loss of both ears: (7) Arteriosclerotic coronary artery disease: (8) Severe protein-calorie malnutrition: advance diet Admission and Anticipated Discharge Date Admission Date: October 20, 2019 Subjective pain control better now but a little sedated. awake and conversive but seems quite forgetful and has a hard time comparing pain to days prior - still present but can't really quantify or compare. G[employer] SALES ASSOCIATE with her who's had her before telles notes she is more comfortable and doing better. no other issues with pt, again HPI and ROS somewhat limited due to pain/sedation d/w palliative and input appreciated extensive (32mins) discussion with family on the phone answered all questions to the best of my ability and to their satisfaction - reiterated explanations of dx to them, explained working ddx of cause of pain, explained esophageal rika, explained pain meds/pain control vs sedation, and then nearly 10mins spent discussing their concerns of athelete's foot (discussed that i did not see anything overtly worrisome with feet earlier today other than dependant edema and some superficial ulceration type changes. Review of Systems Review of Systems: All systems reviewed & are unremarkable except as noted in HPI & below and Unobtainable due to cognitive status Physical Exam Physical Exam: gen aao but easily confused not entirely sure she's totally oriented, but nad. somewhat sedated. heent nc at mmm. breathing still faintly coarse but still no aaccessory muscles or distress. ext no c/c/e except for ~1+ edema L foot (G[employer] SAL[employer] ASSOCIATE notes it's better than it was a few hours ago) and superficial areas of bruising and skin changes - all dressed, no tracking erythema. Results & Data Results & Data ([facility]) Vital Signs (Past 12 Hours) Vital Signs Temp Pulse Pulse Resp BP Pulse Ox 10/28/19 14:25 81 10/28/19 11:23 97.5 F L 91 H 20 127/74 95 10/28/19 08:58 68 10/28/19 07:14 98.2 F 68 20 126/61 93 PG Care Time/CCT Total # of Minutes Spent Total Time Spent with Patient: Total time spent is greater than 50% in coordination of care (as documented) at patient's floor/unit and/or counseling patient: Coding Level of Care Code 93699 Subseq Hosp Care Lvl 3 Diagnoses Acute pancreatitis K85.90 Acute pancreatitis complication: no infection or necrosis Pancreatitis type: unspecified pancreatitis type Elevated alkaline phosphatase level R74.8 AVM (arteriovenous malformation) Q27.30 COPD (chronic obstructive pulmonary disease) J44.9 Abnormal weight loss R63.4 Sensorineural hearing loss of both ears H90.3 Arteriosclerotic coronary artery disease I25.10 Severe protein-calorie malnutrition E43 (1) Acute pancreatitis Acute pancreatitis complication: no infection or necrosis Pancreatitis type: unspecified pancreatitis type Qualified Code(s): K85.90 - Acute pancreatitis without necrosis or infection, unspecified
--- NOTE | 2019-10-28 19:17 | Billing Data ---
Date of Service October 28, 2019 Coding Level of Care Code 05717 Prolonged Care (int'l)
[2019-10-29] MEDS: LEVOTHYROXINE SODIUM 150 MCG TABLET PO SCH (06:33)
[2019-10-29] MEDS: SERTRALINE HCL 100 MG TABLET PO SCH (07:48)
[2019-10-29] MEDS: MAGNESIUM OXIDE 400 MG TAB PO SCH (07:49)
[2019-10-29] MEDS: UMECLIDINIUM BROMIDE 62.5MCG/BLISTER 7 PUFFS/INHALER INH SCH (07:50)
[2019-10-29] MEDS: FLUTICASONE/VILANTEROL 200/25MCG 14 PUFFS/INHALER INH SCH (07:50)
[2019-10-29] MEDS: PILOCARPINE HCL 2% OP SOLN 15 ML BTL OPB SCH ×2 (07:50→20:35)
[2019-10-29] MEDS: FLUCONAZOLE 100 MG TAB PO SCH (07:51)
[2019-10-29] MEDS: MULTIVITAMIN TAB PO SCH (07:51)
[2019-10-29] MEDS: ACETAMINOPHEN 325 MG TAB PO SCH ×3 (07:51→20:37)
[2019-10-29] MEDS: CHECK FENTANYL PATCH PLACEMENT SCH ×2 (07:53→16:00)
[2019-10-29] MEDS: LIDOCAINE 5% 1 PATCH TD SCH (07:53)
[2019-10-29] MEDS: FAMOTIDINE 20 MG TAB PO SCH (07:54)
--- NOTE | 2019-10-29 15:15 | Palliative Care Progress Note ---
Date of Service October 29, 2019 Assessment & Plan (1) Goals of care, counseling/discussion: -73 year old female patient with PMH multiple cranial AVMs s/p surgical interventions, OZZY cerebral aneurysm, CAD, sensorineural hearing loss, COPD, DVT, and heart failure, presented to the ED with c/o chest pain for four days. Also with RUQ pain. Patient also endorsed 18lb weight loss recently. Lipase elevated. Abd/pelvis CT obtained which showed pancreatic stranding, new compression fractures of T11, T12 and L2 with perivertebral edema. Treated for pancreatitis. Troponin negative, not thought to be cardiac related chest pain. Was to get MRCP, but unable to obtain due to previous AVM clips incompatible with MRI. Abd US ordered which showed pancreatic head mass as well as two hepatic lesions that could represent metastases. GI then ordered a stat CT abd/pelvis w/wo contrast-- pancreatic head mass and hepatic lesions again noted. Patient had upper endoscopy and EUS on 10/21, FNA biopsies obtained from 24mm pancreatic lesion and 16mm hepatic lesion. CA19-9 obtained and elevated at 349. Pancreatitis and lipase improved, patient continues to have pain. -Pancreatic mass-Family understands the fact that patient has metastatic adenocarcinoma, and that we have not been able to make an official diagnosis due to inadequate tissue. They are aware of the options: pursue further biopsy vs. focus solely on comfort and pursue hospice care. However, they know patient is not a good candidate for treatment for the cancer such as chemotherapy. Therefore, they are leaning towards NOT pursuing further biopsy and wanted to discuss the home hospice option further. Family would like to make a final de cision on this once patient is able to have this conversation with them. They are going to try having a discussion with her now that she is less sedated. -Family reported that patient was on opioids for about 30 years in the past, and she sometimes had issues with taking too many opioids and not using them appropriately. Patient does request pain medications for severe pain-unable to elicit pain reaction by exam -Plan is to continue current treatment. Pain control with improved on fentanyl at 25 mcg. Patient continues to have a poor appetite. -will continue to follow and assist family with medical decision making (2) Pancreatic mass: (3) Acute pancreatitis: (4) Abdominal pain: Subjective Patient more alert, still confused, significantly less sedated on exam today. Patient's fentanyl patch was increased to 25 mics and placed on her right thigh to improve absorption. Patient did request an IV Dilaudid this morning at 630, had a PRN oxycodone at 9 AM, no further pain meds required. Patient does state she has terrible pain-but able to palpate her abdomen with firm pressure with no wincing or increased pain. Patient with no objective signs of pain. Patient does have a history of over using opioid medications. Patient did take a few bites of her lunch, continues to have a loose cough. Review of Systems Review of Systems: Patient denies fever, chills, increased shortness of breath Does report abdominal pain Physical Exam Physical Exam: PE: Patient confused, less sedated compared to yesterday. Appears comfortable. HEENT: EOMI Respirations: Coarse upper airway sounds, loose cough CV: Regular rate, no edema Abdomen: Soft, able to palpate with increasing pressure-no grimace or signs of discomfort. Neuro: Significant confusion Results & Data Vital Signs (Past 12 Hours) Vital Signs Temp Pulse Pulse Resp BP Pulse Ox 10/29/19 11:29 98.4 F 73 19 150/74 H 93 10/29/19 07:30 99.0 F 79 18 174/86 H 91 10/29/19 07:22 94 H 10/29/19 04:25 84 10/29/19 03:12 98.4 F 77 20 144/68 H 95 PG Care Time/CCT Total # of Minutes Spent Total Time Spent with Patient: Total time spent 25 minutes with greater than 50% of the time spent at bedside assessing patient's current pain control and collaborating with attending physician. Coding Level of Care Code 04591 Subseq Hosp Care Lvl 2 Diagnoses Goals of care, counseling/discussion Z71.89 Pancreatic mass K86.89 Acute pancreatitis K85.90 Acute pancreatitis complication: no infection or necrosis Pancreatitis type: unspecified pancreatitis type Abdominal pain R10.9 Time Spent (min) 25 (1) Acute pancreatitis Acute pancreatitis complication: no infection or necrosis Pancreatitis type: unspecified pancreatitis type Qualified Code(s): K85.90 - Acute pancreatitis without necrosis or infection, unspecified
[2019-10-29] MEDS: AZITHROMYCIN 250 MG TAB PO SCH (16:00)
[2019-10-29] MEDS ORDERED: POLYETHYLENE (MIRALAX) 17 GM PACK PO PRN (16:26)
--- NOTE | 2019-10-29 19:21 | Hospitalist Progress Note ---
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 She was recently admitted from 10/09 to 10/10 for chest pain which she felt was different in character from her current symptoms. She has new compression fractures with edema appreciated on CT. Right upper quadrant abdominal pain with elevated alk phos and lipase Appears to be from pancreatic mass. -Lipase has improved, no longer having pancreatitis. -Endoscopic ultrasound confirms mass in pancreas although biopsies apparently without clear findings - all in agreement (including family) that pursuing tissue dx would have little to no utility since she would not be able to tolerate treatment -advanced diet - tolerating well -pain control seems to be a good balance between pain and sedation - anticipate home / hospice tomorrow Compression fracture with recent weight loss T11-L2 compression fracture with surrounding edema. no longer tender on palp No lesions or masses appreciated, patient has had some chills in the preceding weeks and 18 pounds of weight loss - concern would be malignant vs more likely concomitant osteoporotic (but family also notes fall - probably osteoporotic) concern of history of VT versus heart failure with reduced ejection fraction clinically chest pain does not appear cardiac. echo quite reassuring. trop was negative --> concerns seem to be unfounded. COPD lung exam very coarse, no distress, but still needing O2 -continue to cover with zithromax for atypicals and pulmonary anti-inflammatory effect -LAMA/LABA/ICS -prn duonebs Hypothyroidism Continue Synthroid 150 mcg daily Anxiety/depression Continue sertraline 100 mg daily -esophageal candidiasis Will continue on fluconazole for 10 day course, possibly longer depending on clinical progress - eating better today left foot pain: h/o of tinea pedis. on oral fluconazole for esophageal candidiasis superficial ulcerations / venous stasis changes DVT Prophylaxis: SCDs. Anticoagulation contraindicated 2/2 AVMs. Code Status: Conditional Code dispo - anticipate home/hospice in the next day or so (2) Elevated alkaline phosphatase level: (3) AVM (arteriovenous malformation): (4) COPD (chronic obstructive pulmonary disease): (5) Abnormal weight loss: (6) Sensorineural hearing loss of both ears: (7) Arteriosclerotic coronary artery disease: (8) Severe protein-calorie malnutrition: advance diet Admission and Anticipated Discharge Date Admission Date: October 20, 2019 Subjective pain doing better breathing about the same less groggy/sedated. eating updated family and plan will be home/hospice tomorrow Review of Systems Review of Systems: All systems reviewed & are unremarkable except as noted in HPI & below Physical Exam Physical Exam: gen aao pleasant nad heent nc at mmm breathing unlabored no accessory muscles good effort still mucousy sounding skin no rashes no pallor or icterus. feet w L foot still sl swollen compared to R skin dry and somewhat peeling, a few dressed ulcers no tracking erythema R just dry skin Results & Data Results & Data ([facility]) Vital Signs (Past 12 Hours) Vital Signs Temp Pulse Pulse Resp BP Pulse Ox 10/29/19 19:03 98.2 F 85 18 137/71 96 10/29/19 15:26 97.9 F 82 17 143/62 H 93 10/29/19 11:29 98.4 F 73 19 150/74 H 93 10/29/19 07:30 99.0 F 79 18 174/86 H 91 10/29/19 07:22 94 H PG Care Time/CCT Total # of Minutes Spent Total Time Spent with Patient: Total time spent is greater than 50% in coordination of care (as documented) at patient's floor/unit and/or counseling patient: Coding Level of Care Code 17163 Subseq Hosp Care Lvl 3 Diagnoses Acute pancreatitis K85.90 Acute pancreatitis complication: no infection or necrosis Pancreatitis type: unspecified pancreatitis type Elevated alkaline phosphatase level R74.8 AVM (arteriovenous malformation) Q27.30 COPD (chronic obstructive pulmonary disease) J44.9 Abnormal weight loss R63.4 Sensorineural hearing loss of both ears H90.3 Arteriosclerotic coronary artery disease I25.10 Severe protein-calorie malnutrition E43 (1) Acute pancreatitis Acute pancreatitis complication: no infection or necrosis Pancreatitis type: unspecified pancreatitis type Qualified Code(s): K85.90 - Acute pancreatitis without necrosis or infection, unspecified
[2019-10-29 22:55] VITALS: TEMP 98.8
[2019-10-30] MEDS: CHECK FENTANYL PATCH PLACEMENT SCH ×2 (00:24→08:25)
[2019-10-30] MEDS ORDERED: fentaNYL 25 MCG/HR TDSY TD SCH (00:30)
[2019-10-30 05:53] VITALS: O2SAT 90
[2019-10-30] MEDS: LEVOTHYROXINE SODIUM 150 MCG TABLET PO SCH (06:03)
[2019-10-30] MEDS: ACETAMINOPHEN 325 MG TAB PO SCH ×2 (08:26→13:52)
[2019-10-30] MEDS: MAGNESIUM OXIDE 400 MG TAB PO SCH (08:26)
[2019-10-30] MEDS: FLUCONAZOLE 100 MG TAB PO SCH (08:26)
[2019-10-30] MEDS: SERTRALINE HCL 100 MG TABLET PO SCH (08:26)
[2019-10-30] MEDS: FAMOTIDINE 20 MG TAB PO SCH (08:27)
[2019-10-30] MEDS: FLUTICASONE/VILANTEROL 200/25MCG 14 PUFFS/INHALER INH SCH (08:27)
[2019-10-30] MEDS: MULTIVITAMIN TAB PO SCH (08:27)
[2019-10-30] MEDS: PILOCARPINE HCL 2% OP SOLN 15 ML BTL OPB SCH (08:28)
[2019-10-30] MEDS: UMECLIDINIUM BROMIDE 62.5MCG/BLISTER 7 PUFFS/INHALER INH SCH (08:28)
[2019-10-30] MEDS: LIDOCAINE 5% 1 PATCH TD SCH (08:29)
[2019-10-30] MEDS ORDERED: POLYETHYLENE (MIRALAX) 17 GM PACK PO SCH (09:00)
[2019-10-30 12:04] VITALS: BP 112/60; PULSE 91
[2019-10-30] MEDS: OXYCODONE HCL IR 5 MG TAB (IMMEDIATE RELEASE) PO PRN (13:52)
--- NOTE | 2019-10-30 15:39 | Discharge Summary ---
Date of Service October 30, 2019 Admission HPI Per Admitting Provider Patient is a 73-year-old female who presented with recurrent abdominal discomfort. The patient is a poor historian due to underlying dementia but has had intermittent symptoms over the past few months. Imaging during her initial evaluation showed a suggestive masslike lesion in the pancreatic head on ultrasound. EUS has been requested with possible ERCP for further evaluation. Overnight the patient's lipase went from 1500 to within normal limits. Principal Diagnosis pancreatic mass pain COPD Discharge Exam gen aao pleasant nad heent nc at mmm breathing unlabored no accessory muscles good effort skin no rashes no pallor or icterus Discharge Data Allergies Allergy/AdvReac Type Severity Reaction Status Date / Time enoxaparin [From Lovenox] Allergy Severe can not Verified 10/10/19 11:16 take d/t bleeding AVMs heparin Allergy Severe can not Verified 10/10/19 11:16 take d/t bleeding AVMs warfarin [From Coumadin] Allergy Severe can not Verified 10/10/19 11:16 take d/t bleeding AVMs levofloxacin [From Levaquin] Allergy Intermediate "tendons Verified 10/10/19 11:16 in back of leg/foot get hard" Consultations 10/20/19 22:05 ED Decision to Admit Stat 10/21/19 01:07 Consult Gastroenterology Routine 10/24/19 18:57 Consult Palliative Care Routine 10/25/19 18:23 Consult Hematology Routine Procedures Performed Operation Date: 10/22/19 08:10 Actual Procedures s Endoscopic Ultrasonography Upper(Not Applicable) - Kait Kat p Esophagogastroduodenoscopy(Not Applicable) - Kait Kat Ordered Studies 10/20/19 20:41 CT abd pelvis wo con Stat 10/21/19 01:07 US gallbladder Routine 10/22/19 08:47 CT abdomen pelvis wo/w con Stat 10/22/19 14:46 US upper EUS PACS images Routine 10/26/19 11:26 US upper EUS PACS images Routine Hospital Course (1) Acute pancreatitis: Sofia Chávez is a 73-year-old female with a past medical history of 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 She was recently admitted from 10/09 to 10/10 for chest pain which she felt was different in character from her current symptoms. She has new compression fractures with edema appreciated on CT. Right upper quadrant abdominal pain with elevated alk phos and lipase Appears to be from pancreatic mass. -Lipase has improved, no longer having pancreatitis, eating well. -Endoscopic ultrasound confirms mass in pancreas although biopsies apparently without clear findings - all in agreement (including family) that pursuing tissue dx would have little to no utility since she would not be able to tolerate treatment -pain control seems to be a good balance between pain and sedation - safe for home w hospice Compression fracture with recent weight loss T11-L2 compression fracture with surrounding edema. no longer tender on palp No lesions or masses appreciated, patient has had some chills in the preceding weeks and 18 pounds of weight loss - concern would be malignant vs more likely concomitant osteoporotic (but family also notes fall - probably osteoporotic) concern of history of RI versus heart failure with reduced ejection fraction clinically chest pain does not appear cardiac. echo quite reassuring. trop was negative --> concerns seem to be unfounded. COPD finish zithromax -LAMA/LABA/ICS -prn albuterol -home O2 Hypothyroidism Continue Synthroid 150 mcg daily Anxiety/depression Continue sertraline 100 mg daily -esophageal candidiasis Will continue on fluconazole for 21 total days left foot pain: h/o of tinea pedis. on oral fluconazole for esophageal candidiasis superficial ulcerations / venous stasis changes -- local wound care/elevation, trial of diclofenac gel topically (careful to avoid open wounds), lotion/treat dry skin, avoid abrasions like pumice stone DVT Prophylaxis: SCDs. Anticoagulation contraindicated 2/2 AVMs. dispo - stable for home (2) Elevated alkaline phosphatase level: (3) AVM (arteriovenous malformation): (4) COPD (chronic obstructive pulmonary disease): (5) Abnormal weight loss: (6) Sensorineural hearing loss of both ears: (7) Arteriosclerotic coronary artery disease: (8) Severe protein-calorie malnutrition: advance diet Total Time Total Time Spent Total Time Spent (In Minutes): >30 Discharge Plan Discharge Items Patient Disposition: Hospice - Home Reason For Visit: CHEST PAIN, WEIGHT LOSS Discharge Diagnosis: new diagnosis pancreatic mass, pain from multiple factors (see below) Activity: Resume your previous activity Non-emergency contact: Primary Care Provider Call non-emergency contact if: you have any medication questions, your symptoms worsen and your pain is not controlled Follow-up/Referrals: Kai Crawford V., [Physician] - (Please, follow up at [facility] with Dr. Kai Crawford or Dr. Enrique Ba. *A nurse from this office will call you with the appointment information. Their office is located in the rear of this hosptial building. You will park BEHIND the hospital in [address] and enter via [address]. If you have any questions, call their office at [phone].) Niyah Landaverde MD [Primary Care Provider] - Diet: Regular Addtl Attending Provider Instructions: pain -the pain appears to be three things all playing off of eachother: pain from the mass, esophagus pain from the fungal infection, and probably some pain radiating around the front from the compression fractures (T11, T12) ---pain from the mass - as has been discussed, the mass looks extremely concerning for a pancreatic cancer, and while the biopsy of the actual mass was negative, the nearby lymph node did come back showing an adenocarcinoma -- making the whole picture quite consistent with pancreatic cancer as the main diagnosis. see the outline of the pain medications below (under pain medications section) as far as management of the actual pain ---pain from esophagus yeast infection - when they did the scope, they saw a yeast infection of your esophagus - this can be quite painful as well, and can be causing some of what you're feeling. we're treating it with an antifungal called fluconazole that usually does a nice job in clearing these infections, but it just takes a while. most of the time treatment needs to be in the 2-3 week range, so we've sent you with a prescription for fluconazole to finish 3 weeks of treatment ---pain from the compression fractures - this is probably the smallest part of things - especially since they're a little lower than where the bulk of your pain is, but they can be contributing. since a lidocaine (numbing medicine) patch over the area didn't seem to help, the main way to treat this part of the pain will also be in the "pain medications" section pain medications: -because there are multiple facets to pain, we usually try to treat pain in more of a "mix and match" than "one size fits all" way -fentanyl (duragesic) patch -- this is a long acting, slow release patch that puts a strong painkiller through your skin and into your bloodstream. it is the most potent of the pain medicines we'll be sending you on, but also should provide a good foundation of relief. you change it every three days - so it's good practice to write the date on the patch before you put it on so that you don't forget, or accidentally double up. it's best to put it somewhere where there is a bit of fat under the skin to aid in absorption - so for you it's probably best put on the side of your thigh. -acetaminophen (tylenol) - while it doesn't sound like much, using tylenol on a fpivx-siz-ndiff (scheduled) basis goes a surprisingly long way in helping augment things like the fentanyl patch for baseline pain control. right now we have you on 650mg three times a day, and we'd want you to continue that. at this dose range tylenol is pretty safe -- typically it's when we're routinely exceeding 2000mg per day that people start to have risk of liver troubles (this would have you on 1950mg per day - so just below, and we purposefully prescribed oxycodone WITHOUT additional tylenol in it to make it easier to take both if needed without getting to really high doses of tylenol) -oxycodone - this is a potent oral pain killing medicine that you can use for what's called "breakthrough pain" - meaning pain that really hits in excess of what the fentanyl and tylenol can alleviate. while you can take it up to every 6 hours if needed, right now you actually haven't needed a lot - in fact, your last dose of this was at about 9am on 10/27! (so since we increased the fentanyl patch and started the [id number]-rjy-yhfri tylenol your pain has been overall much better). i'd recommend your family help you with the dosing of this, simply because it is a bit dangerous in risk of overdose, and it's pretty easy to forget if you've taken it since it can make you feel a little groggy or more easily confused -at least for the foreseeable future i would recommend against taking any whole- body anti-inflammatories (like ibuprofen or naproxen) because they can cause stomach and esophagus irritation - maybe temporarily helping you feel a little better but fundamentally making the actual problem in your esophagus worse COPD -your lungs are showing slow improvement from the beginning of the week, but i suspect that your COPD was probably worse than you realized when you came in - and just seeing you near "your normal" is showing us that we needed to do a little more for you than you were before -we're finishing out a course of antibiotics to help kill any bacteria that were causing all the mucous you had - your next, and last, dose of azithromycin will be tomorrow 10/31/19 -continue to take your breo inhaler that you were on before every day (it is not an as-needed inhaler, it's an every day no matter how you feel one) -to help your lungs further we've added a different inhaler - incruse (umeclidinium) -- you take it once a day every day as well -if you feel tight/short of breath/tight cough - then use the albuterol up to every 4 hours as needed -it looks like you need oxygen at a setting of 2L all the time at this point foot pain -while it sounds like you maybe had trouble with foot fungus infections before admission, i'm not really seeing anything like that now. of course, you had been on the fluconazole for days before i picked up your care, and fluconazole is a pretty potent antifungal medicine, so it's possible that things cleared up, BUT, what i'm seeing that could be causing some of the foot pain is the following: -the skin on your feet is generally quite dry - use a good moisturizer like eucerin or cetaphil to moisturize your feet 3-4 times a day -you have a degree of what is called venous stasis (where blood pools dependant on gravity making the foot swell, get a little red, and probably contributes to the burning as well) - so keeping your foot (especially the left, which seems to have this worse) elevated will help keep it from being as swollen - you have some superficial ulcerations on the left foot - it is nearly impossible seeing them in stages of healing to know if they happened due to the venous stasis (sometimes pressure from the swelling causes ulcers that happen from the inside out) or if it was from the pumice stone -- BUT, either way keep your feet elevated when you can and use lotion but not the pumice stone -in addition the above measures, i've prescribed an anti-inflammatory gel (topical diclofenac) for you to give a trial to. it is essentially like taking 800mg of ibuprofen but ONLY in the area you rub the gel into, so it doesn't get into your whole body very much at all (and therefore would be OK to use with your esophagus) -i would want you to keep it away from the ulcerated areas, as it would probably sting and burn if it got into open skin -it usually works pretty well for people but takes a few days of routine use to start to feel relief - saying the same thing differently it is a TERRIBLE as needed medication, but if you use it routinely 3-4 times a day, by day 2-3 of use people very frequently start to see some relief bowels -pain medications - most notably the fentanyl and oxycodone, are notorious for causing constipation - sometimes serious enough that people are really uncomfortable. to stay ahead of that, i would recommend routine use of miralax (polyethylene glycol) ---despite it's name, miralax isn't actually a laxative, it's a potent stool softener. it works by pulling water into your intestines, softening the stool (and then also because there's more substance in your intestines, usually things do squeeze through a little faster) ---as a tejada course developer once taught me, "everyone will poop with miralax, you just have to be willing to use enough of it" -- ie most of the time people who have constipation that isn't getting better with miralax are just using less than they need to ---any individual dose is about a capful of the stuff -- 17 grams -- but this is at the lower end of the dosing spectrum. by contrast, a reasonable bowel prep for a colonoscopy is about 12 doses in rapid succession. ---most people on a chronic pain regimen probably settle in to somewhere around 2-3 doses a day for reasonable bowel control, but everyone is different - typically what i recommend is that you "dose today based on yesterday's bowel movement" -- ie if yesterday was a lot of diarrhea, today's dose would be ZERO, if yesterday was a reasonable sized BM, maybe today you only need 1-2 doses, if yesterday you didn't have any bowel movement, then today you probably need more like 3-4 doses. as a reasonable rule for safety, i'll usually ask that if someone has taken 5 doses and still hasn't had a bowel movement, then it's time to call for further guidance (for you: either the hospice nurse or your PCP) Pending Studies at Discharge: No Stand-Alone Forms: My [facility] Medications and DC Order Prescriptions: New azithromycin [Zithromax] 250 mg Tablet 250 mg PO Q24H Qty: 1 RF: 0 fluconazole 100 mg Tablet 200 mg PO QAM Qty: 16 RF: 0 Incruse Ellipta 62.5 mcg/actuation Blister With Device 1 puff inhalation QAM Qty: 1 RF: 0 polyethylene glycol 3350 [Miralax] 17 gram Powder In Packet 17 g PO DAILY Qty: 1 RF: 0 fentanyl 25 mcg/hr Patch 72 Hour 25 mcg transdermal Q72H Qty: 10 RF: 0 oxycodone 5 mg Tablet 7.5 mg PO Q6 PRN (Reason: breakthrough pain) Qty: 30 RF: 0 diclofenac sodium 1 % gel 2 gm TOP QID Qty: 100 RF: 0 acetaminophen 650 mg tablet extended release 650 mg PO Q8H Qty: 60 RF: 0 Continued multivitamin tablet 1 tab PO QAM RF: 0 pilocarpine HCl 2 % drops 1 drops OPB BID RF: 0 sertraline 100 mg tablet 100 mg PO QAM RF: 0 Breo Ellipta 200-25 mcg/dose blister with device 1 puffs INH Q24H RF: 0 famotidine 20 mg tablet 20 mg PO DAILY Qty: 30 RF: 2 levothyroxine 150 mcg tablet 150 mcg PO QAM RF: 0 magnesium oxide 400 mg magnesium Tablet 400 mg PO QAM RF: 0 etodolac 200 mg capsule 200 mg PO Q12H PRN (Reason: Pain) RF: 0 albuterol sulfate 90 mcg/actuation HFA aerosol inhaler 1 puffs INH QID PRN (Reason: Shortness Of Breath Or Wheezing) RF: 0 Discontinued tramadol 50 mg tablet 25 mg PO Q12H PRN (Reason: Pain) RF: 0 Discharge Orders: Discharge Order (Routine); Ordered 10/30/19 Ordered By: Enrico Solano Admission Data Admit Date/Time: 10/20/19 23:32 Attending Provider: Enrico Solano Admit Provider: Eddie Bach Primary Care Provider: Niyah Landaverde Other Providers: Crista Billings ; Dani Stevens ; Sofia Celeste ; [facility] ; Kai Crawford V. ; Kofi Crow Other Interventions: Discharge Summary Assessment (RN) Last Done: 10/30/19 12:02 Coding Level of Care Code D/C Day Management >30 mins Diagnoses Acute pancreatitis K85.90 Acute pancreatitis complication: no infection or necrosis Pancreatitis type: unspecified pancreatitis type Elevated alkaline phosphatase level R74.8 AVM (arteriovenous malformation) Q27.30 COPD (chronic obstructive pulmonary disease) J44.9 Abnormal weight loss R63.4 Sensorineural hearing loss of both ears H90.3 Arteriosclerotic coronary artery disease I25.10 Severe protein-calorie malnutrition E43
--- NOTE | 2019-11-03 12:53 | GI REPORT ---
Patient Name: Sofia Chávez Procedure Date: 10/22/2019 2:50 PM Date of : 1945 Admit Type: Inpatient Age: 73 Gender: Female Attending MD: Kait Kat DO Procedure: Upper EUS Providers: Kait Kat DO Referring MD: Ismael Spence MD, Kofi Crow M.d. Indications: Suspected mass in pancreas on CT scan, Abnormal abdominal/pelvic CT scan, Abnormal ultrasound of the abdomen, Epigastric abdominal pain Medicines: General Anesthesia Complications: No immediate complications. Estimated blood loss: Minimal. Estimated Blood Loss: Estimated blood loss was minimal. Procedure: Pre-Anesthesia Assessment: - Prior to the procedure, a History and Physical was performed, and patient medications, allergies and sensitivities were reviewed. The patient's tolerance of previous anesthesia was reviewed. - The patient is unable to give consent secondary to the patient's altered mental status. The alternatives, risks and benefits of the procedure were discussed at length with the patient's daughter. The patient's proxy verbalized understanding of the risks as well as the alternatives and wished to proceed with the procedure. - Patient identification and proposed procedure were verified prior to the procedure by the physician, the nurse and the cracking machine operator. The procedure was verified in the procedure room. - Pre-procedure physical examination revealed no contraindications to sedation. - ASA Grade Assessment: III - A patient with severe systemic disease. - After reviewing the risks and benefits, the patient was deemed in satisfactory condition to undergo the procedure. - The anesthesia plan was to use general anesthesia. - Immediately prior to administration of medications, the patient was re-assessed for adequacy to receive sedatives. - The heart rate, respiratory rate, oxygen saturations, blood pressure, adequacy of pulmonary ventilation, and response to care were monitored throughout the procedure. - The physical status of the patient was re-assessed after the procedure. After obtaining informed consent, the endoscope was passed under direct vision. Throughout the procedure, the patient's blood pressure, pulse, and oxygen saturations were monitored continuously. The Endosonoscope was introduced through the mouth, and advanced to the third part of duodenum. The upper EUS was accomplished without difficulty. The patient tolerated the procedure well. Findings: ENDOSONOGRAPHIC FINDING: : There was no sign of significant endosonographic abnormality in the ampulla. No masses were identified. Evidence of a previous cholecystectomy was identified endosonographically. There was dilation in the common bile duct which measured up to 8 mm. There was no sign of significant endosonographic abnormality in the visualized portion of the liver. Homogeneous parenchyma and no masses were identified. No lymph nodes were seen during endosonographic examination in the gastrohepatic ligament (level 18) and in the celiac region (level 20). One enlarged lymph node was visualized in the boo hepatis region. It measured 16 mm by 13 mm in maximal cross-sectional diameter. The node was oval, hypoechoic and had well defined margins. Fine needle aspiration for cytology was performed. Color Doppler imaging was utilized prior to needle puncture to confirm a lack of significant vascular structures within the needle path. Three passes were made with the 22 gauge needle and with the 25 gauge needle (Trov) using a transduodenal approach. A stylet was used. A hospital housekeeper was present and performed a preliminary cytologic examination. Final cytology results are pending. Estimated blood loss was minimal. An oval mass was identified in the pancreatic head. The mass was hypoechoic. The mass measured 24 mm by 17 mm in maximal cross-sectional diameter. The endosonographic borders were well-defined. An intact interface was seen between the mass and the superior mesenteric artery suggesting a lack of invasion. The remainder of the pancreas was examined. The endosonographic appearance of parenchyma and the upstream pancreatic duct indicated duct dilation, a maximum duct diameter of 4 mm and parenchymal atrophy. Fine needle aspiration for cytology was performed. Color Doppler imaging was utilized prior to needle puncture to confirm a lack of significant vascular structures within the needle path. Four passes were made with the 25 gauge needle ([id number]) using a transduodenal approach. A stylet was used. A hospital housekeeper was present and performed a preliminary cytologic examination. Final cytology results are pending. Estimated blood loss was minimal. A hypoechoic lesion suggestive of a cyst was identified in the pancreatic body. It is not in obvious communication with the pancreatic duct. The lesion measured 7 mm by 7 mm in maximal cross-sectional diameter. There was a single compartment without septae. The outer wall of the lesion was not seen. There was no associated mass. There was no internal debris within the fluid-filled cavity. A hypoechoic lesion suggestive of a cyst was identified in the pancreatic tail. It is not in obvious communication with the pancreatic duct. The lesion measured 10 mm by 11 mm in maximal cross-sectional diameter. There were 2 compartments thinly septated. The outer wall of the lesion was not seen. There was no associated mass. There was no internal debris within the fluid-filled cavity. Impression: - There was no sign of significant pathology in the ampulla. - Evidence of a cholecystectomy. - There was dilation in the common bile duct which measured up to 8-9 mm. - There was no evidence of significant pathology in the visualized portion of the liver. - One enlarged lymph node was visualized in the boo hepatis region. Fine needle aspiration performed. - A mass was identified in the pancreatic head. This was staged T2 N1 Mx by endosonographic criteria. The staging applies if malignancy is confirmed. Fine needle aspiration performed. - A 11 mm cystic lesion was seen in the pancreatic body. The diagnosis is suggestive of an intraductal papillary mucinous neoplasm. - A 7 mm cystic lesion was seen in the pancreatic tail. Tissue has not been obtained. However, the endosonographic appearance is suggestive of an intraductal papillary mucinous neoplasm. Recommendation: - Return patient to [facility] for [facility] care. - Clear liquid diet today. - Await cytology results. - Outpatient surgical oncology referral (not a likely candidate given health problems and the enlarged LN) - Outpatient medical oncology referral - Patient may ultimatly need ERCP if she developes obstruction of the biliary manifest by elevated AST/ALT and Bilirubin (all normal at present) Kait Kat D.O. Kait Kat, DO 10/22/2019 4:22:05 PM Note Initiated On: 10/22/2019 2:50 PM Number of Addenda: 0 I attest to the content of the Intraoperative Record and orders documented therein, exceptions below {[id number]}
== END 2019-10-30 17:33 | disposition hospice, home (50) | DRG 438 ==
LOC: ED 18:23 → SUATTDRO 23:32 → 2N 23:32 → 2W 10-22 18:11